=== PATIENT | female | born 1940 | race Caucasian/White ===

== ENCOUNTER 2020-04-12 10:21 | Outpatient (CLI) | payer MEDICARE, SELFPAY ==
[2020-04-12 11:00] LABS: Basophils Absolute Auto 0.1 K/mm3 (0.0-0.1); Basophils Percent Auto 0.8 % (0.2-1.2); Eosinophils Absolute Auto 0.2 K/mm3 (0-0.3); Eosinophils Percent Auto 2.4 % (0-4.4); Hematocrit 31.3 % (37.0-47.0); Hemoglobin 9.1 g/dL (12.0-15.0); Immature Granulocyte Absolute 0.05 K/mm3 (0.00-0.031); Immature Granulocyte Percent A 0.7 % (0-0.5); Lymphocytes Absolute Auto 2.02 K/mm3 (0.9-3.2); Lymphocytes Percent Auto 26.8 % (18.3-44.2); Mean Corpuscular HGB Conc 29.1 g/dl (32-36); Mean Corpuscular Hemoglobin 24.3 pg (26-34); Mean Corpuscular Volume 83.5 fl (80-100); Mean Platelet Volume 9.8 fl (7.4-10.4); Monocytes Absolute Auto 0.7 K/mm3 (0.1-0.6); Monocytes Percent Auto 9.5 % (2.6-8.5); Neutrophils Absolute Auto 4.5 K/mm3 (1.3-6.7); Neutrophils Percent Auto 59.8 % (45.5-73.1); Platelet Count Result 359 k/mm3 (150-375); Red Blood Count 3.75 M/mm3 (4.2-5.4); Red Cell Distribution Width 17.2 % (11.5-14.5); White Blood Count 7.6 K/mm3 (4.5-10.0)
[2020-04-12 11:20] LABS: Alanine Aminotransferase 11 U/L (4-35); Albumin Level 3.9 g/dL (3.5-5.1); Alkaline Phosphatase 62 U/L (38-126); Anion Gap 9 mmol/L (8-16); Aspartate Amino Transferase 23 U/L (14-36); Bilirubin,Total 0.5 mg/dL (0.2-1.3); Blood Urea Nitrogen 22 mg/dL (7-17); Calcium 7.6 mg/dL (8.4-10.2); Carbon Dioxide 21 mmol/L (22-30); Chloride 106 mmol/L (98-107); Estimated Glomerular Filt Rate 36; Glucose 95 mg/dL (65-105); Potassium 4.9 mmol/L (3.4-5.0); Sodium 136 mmol/L (137-145)
[2020-04-12 11:26] LABS: Platelet Estimate Adequate (Adequate)
[2020-04-12 11:27] LABS: Acanthocytes 1+ (NORMAL); Hypochromasia 1+ (NORMAL); Ovalocytes 2+ (NORMAL); Poikilocytosis 2+ (NORMAL)
[2020-04-12 11:29] LABS: Hemoglobin A1C 6.9 % (<5.7)
[2020-04-12 11:48] LABS: Vitamin D 25 Hydroxy 33.6 ng/mL
== END 2020-04-12 10:22 | disposition home or self-care (01) ==
PROVIDERS: PCP Internal Medicine; Visit Provider Internal Medicine
DX: E11.9 Type 2 diabetes mellitus without complications (principal); D64.9 Anemia, unspecified; E55.9 Vitamin D deficiency, unspecified
CPT/HCPCS: 36415; 80053; 82306; 83036; 85025

== ENCOUNTER 2021-01-22 12:02 | Observation (INO) | payer MEDICARE, SELFPAY ==
[2021-01-22] VITALS (22 sets, daily range): BP systolic 103–148; BP diastolic 53–85; PULSE 61–74; RESP 11–62; TEMP 36.1–36.7; O2SAT 93–98
--- NOTE | ~2021-01-22 | CT_ITS ---
EXAMINATION: CT abdomen pelvis wo con DATE: 01/22/2021 14:54 INDICATION: Weakness post fall. Assess for retroperitoneal hematoma. TECHNIQUE: Computed tomography (CT) of the abdomen and pelvis was performed without intravenous contr ast. Automated exposure control and iterative reconstruction technique were employed. The dose-length product was 547.16 mGy-cm. COMPARISON: None FINDINGS: Calcified nodules in the left lower lobe and calcified left hilar and mediastinal lymph nodes consist ent with old granulomatous disease. Large sliding-type hiatal hernia with compressive atelectasis in the adjacent medial left lower lobe. Wall versus rugal fold thickening in the stomach. Elevation of t he right hemidiaphragm. 2.0 cm fluid attenuation cyst in the left hepatic lobe. Pneumobilia in the no ndependent liver and in the dilated common bile duct which measures up to 1.3 cm in maximal diameter which may be related to prior cholecystectomy and sphincterotomy with surgical clips at the gallbladd er fossa. Spleen and bilateral adrenal glands are normal. Fatty atrophy of the body and tail of the p ancreas. 2.6 cm cystic lesion in the region of the head of the pancreas. There are several gas and fl uid-filled diverticula along the third and fourth portion of the duodenum, the largest measuring up t o 3.1 cm. The level of the ligament of Treitz his lower than the gastric pylorus suggesting a develop mental bowel malrotation although there is no evident volvulus and the colon follows a normal course. There are few scattered colonic diverticula without adjacent inflammatory change to suggest divertic ulitis. Asymmetric wall thickening at the rectoanal verge. No bowel obstruction. Normal appendix. 12 mm relatively dense lesion at the upper pole of the right kidney statistically most likely to represe nt a proteinaceous/hemorrhagic cyst. 8 mm macroscopic fat attenuation angiomyolipoma at the lower nithya e of the left kidney. No urolithiasis or hydronephrosis. Bladder is normal. The uterus is not identif ied and has likely been surgically resected. Bilateral adnexa are unremarkable. No free intraperitone al gas or fluid. No retroperitoneal hematoma. No pathologically enlarged abdominal or pelvic lymphade nopathy. Multiple phleboliths in the pelvis. Mild lumbar levocurvature. Severe disc height loss with degenerative endplate changes at L1-L2. Otherwise moderate lumbar spondylosis. IMPRESSION: 1. No fracture or acute intra-abdominal/pelvic process. 2. Large sliding-type hiatal hernia with wall thickening versus rugal fold thickening in the stomach. Differential would include infectious gastritis, hypertrophic gastritis, malignancy or inflammatory bowel disease. Consider endoscopy for further evaluation. 3. Pneumobilia and dilation the common bile duct to 13 mm which is likely related to prior cholecyste ctomy and sphincterotomy. Correlate with liver function tests. 4. Indeterminate 12 mm relatively dense lesion at the upper pole of the right kidney most likely to r epresent but not clearly diagnostic of proteinaceous/hemorrhagic cyst. Consider follow-up pre and pos tcontrast MRI or CT for more definitive determination. 5. Fatty atrophy of the body and tail the pancreas with 2.6 cm cystic lesion in the region of the hea d of the pancreas. The differential diagnosis includes pseudocyst, intraductal papillary mucinous tyra plasm (IPMN), mucinous cystic neoplasm (MCN), and the less common serous cystadenoma and neuroendocri ne tumor. Correlate for history of pancreatitis. This could be evaluated with MRI at the same time as the renal lesion. 6. Asymmetric wall thickening at the rectoanal junction. Differential would include malignancy, proct itis and hemorrhoids. Correlate with digital rectal exam and proctoscopy/sigmoidoscopy as clinically indicated. Reviewed, dictated and finalized at loca
--- NOTE | ~2021-01-22 | CT_ITS ---
EXAMINATION: CT brain wo con DATE: 01/22/2021 14:00 INDICATION: Generalized weakness post fall TECHNIQUE: Computed tomography (CT) of the head was performed without intravenous contrast. Sagittal and coronal reconstructions were performed. The mA was adjusted according to patient size. Iterative reconstruction technique was employed. The dose-length product was 605.33 mGy-cm. COMPARISON: None FINDINGS: No fracture. No acute intracranial hemorrhage, acute infarction or abnormal extra axial fluid collect ion. There is mild scattered white matter hypoattenuation consistent with chronic small vessel ischem ic disease. Symmetric prominence of the sulci and ventricles consistent with moderate age-appropriate diffuse cerebral volume loss. No mass/mass effect. Changes of bilateral intraocular lens replacement . The orbits, paranasal sinuses and mastoid air cells are normal. Intracranial calcified cerebral ath erosclerosis is noted. IMPRESSION: 1. No fracture or acute intracranial process. 2. Age-related changes including moderate diffuse volume loss and mild scattered white matter hypoatt enuation consistent with chronic small vessel ischemic disease. Reviewed, dictated and finalized at location A. IMPRESSION: 1. No fracture or acute intracranial process. 2. Age-related changes including moderate diffuse volume loss and mild scattere d white matter hypoattenuation consistent with chronic small vessel ischemic di sease.
--- NOTE | ~2021-01-22 | XR_ITS ---
EXAMINATION: XR chest 2V DATE: 01/22/2021 13:02 INDICATION: Weakness. Falls. TECHNIQUE: Frontal and lateral views of the chest were obtained. COMPARISON: None. FINDINGS: Calcified pulmonary nodules and calcified hilar and mediastinal lymph nodes are consistent with old adenomatous disease. There is marked elevation of right hemidiaphragm. There is mild atelect asis at the lung bases. No pleural effusion or pneumothorax. The heart size is normal. There is a lar ge hiatal hernia. Surgical clips in the right upper quadrant are likely from cholecystectomy. IMPRESSION: 1. Large hiatal hernia. 2. Marked elevation of right hemidiaphragm. 3. Mild atelectasis at the lung bases. Reviewed, dictated and finalized at location B.
--- NOTE | ~2021-01-22 | CT_ITS ---
EXAMINATION: CT cervical spine wo con DATE: 01/22/2021 14:00 INDICATION: Weakness post fall TECHNIQUE: Computed tomography (CT) of the cervical spine was performed without intravenous contrast. Automated exposure control and iterative reconstruction technique were employed. The dose-length pro duct was 364.89 mGy-cm. COMPARISON: None FINDINGS: Moderate atlantoaxial osteoarthritis. 1-2 mm anterolisthesis C4 on C5. Vertebral body heights are nor mal. No acute fracture. Moderate disc height loss at C5-C6 and severe disc height loss at C6-C7. Athe rosclerotic calcifications at the bilateral carotid bulbs which appears potentially hemodynamically s ignificant on the right. Visualized airway and apices of lungs are clear. The following disc levels a re specifically discussed: C2-C3: There is mild bilateral uncovertebral joint osteoarthritis. Fusion across the bilateral facet joints. There is no neural foraminal stenosis. There is no central canal stenosis. C3-C4: There is mild right and moderate left uncovertebral joint osteoarthritis. There is severe bila teral facet joint osteoarthritis. There is mild left neural foraminal stenosis. There is no central c anal stenosis. C4-C5: Disc is mildly bulging. There is mild bilateral uncovertebral joint osteoarthritis. There is m oderate right and severe left facet joint osteoarthritis. There is mild left neural foraminal stenosi s. There is mild central canal stenosis. C5-C6: Small posterior disc osteophyte complex with moderate right and severe left uncovertebral oste oarthritis. There is moderate bilateral facet joint osteoarthritis. There is mild left neural foramin al stenosis. There is mild central canal stenosis. C6-C7: Small posterior disc osteophyte complex with moderate right and severe left uncovertebral oste oarthritis. There is mild right and moderate left uncovertebral joint osteoarthritis. There is mild l eft facet joint osteoarthritis. There is mild neural foraminal stenosis. There is no central canal st enosis. C7-T1: The disc does not extend beyond the endplate margin. There is no uncovertebral joint osteoarth ritis. There is mild right and severe left facet joint osteoarthritis. There is minimal left neural f oraminal stenosis. There is no central canal stenosis. IMPRESSION: 1. Moderate to severe cervical spondylosis. No acute osseous abnormality. 2. Atherosclerotic calcifications at the bilateral carotid bulbs, potentially hemodynamically signifi cant on the right. Reviewed, dictated and finalized at location A. IMPRESSION: 1. Moderate to severe cervical spondylosis. No acute osseous abnormality. 2. Atherosclerotic calcifications at the bilateral carotid bulbs, potentially h emodynamically significant on the right.
--- NOTE | 2021-01-22 12:26 | ECG_ITS ---
Measurements Intervals [place] Rate: 63 P: -18 VA: 174 QRS: -32 QRSD: 87 T: -2 QT: 381 QTc: 392 Interpretive Statements SINUS RHYTHM LEFT AXIS DEVIATION INCOMPLETE RIGHT BUNDLE BRANCH BLOCK DELAYED PRECORDIAL R/S TRANSITION BORDERLINE ST-T WAVE ABNORMALITY- ANT/INF LEADS BORDERLINE ECG Electronically Signed On 01-22-2021 12:46:19 CDT by Tyrel Cain D.O.
--- NOTE | 2021-01-22 13:25 | ED.WEAKNESS ---
HPI - Weakness General Chief complaint: Weakness Stated complaint: Fall/Syncope/HI/Lethargy Time Seen by Provider: 01/22/21 12:53 Source: patient, family, RN notes reviewed and old records reviewed Mode of arrival: ambulatory Limitations: no limitations History of Present Illness HPI Narrative: This is an 80 year old female who presents with family for concern of weakness. Patient states she has felt weak over the past 2 days. She states today she was getting up to get ready when she lost her balance and she fell. She is unsure if she hit her head but she reports neck pain since her fall. Her son is at bedside and he states his sister reported patient was lethargic after the fall. Patient denies headache, chest pain, palpitations, nausea, vomiting, abdominal pain, focal weakness, numbness or tingling. She does report poor appetite that has been present for a while. Her 1 month ago and it seems to be worse since. She takes Xarelto 20 mg daily for left leg DVT diagnosed in October. Patient was diagnosed with UTI last week and she is currently taking Macrobid. MD Complaint: generalized weakness Related Data Home Medications Medication Instructions Recorded Confirmed amlodipine 5 mg PO HS 01/22/21 01/22/21 atorvastatin 40 mg PO HS 01/22/21 01/22/21 calcitriol 0.25 mcg PO HS 01/22/21 01/22/21 ergocalciferol (vitamin D2) 50,000 unit PO WEEKLY 01/22/21 01/22/21 furosemide 20 mg PO DAILY 01/22/21 01/22/21 glipizide 10 mg PO BID 01/22/21 01/22/21 lisinopril 40 mg PO DAILY 01/22/21 01/22/21 metoprolol succinate 100 mg PO DAILY 01/22/21 01/22/21 nitrofurantoin monohyd/m-cryst 100 mg PO Q12H 01/22/21 01/22/21 omeprazole 20 mg PO DAILY 01/22/21 01/22/21 rivaroxaban [Xarelto] 20 mg PO DAILY 01/22/21 01/22/21 semaglutide [Rybelsus] 3 mg PO DAILY 01/22/21 01/22/21 Allergies Allergy/AdvReac Type Severity Reaction Status Date / Time Sulfa (Sulfonamide Allergy Unknown PATIENT Verified 01/22/21 18:43 Antibiotics) DOESN'T REMEMBER Review of Systems Review of Systems: All systems reviewed & are unremarkable except as noted in HPI and below PMFSH Past Medical History Medical History (Updated 01/22/21 @ 23:35 by Janeth rBody MD) Acute UTI DVT (deep venous thrombosis) Hypertension Social History Social History Smoking packs per day: 1 Smoking cigarettes per day: 20.0 Years smoked: 20 Smoking pack-years: 20.00 Smoking status: Former smoker Alcohol intake: never Substance use: never Gender identity (if verbalized by the patient): Female Spiritual care concerns: No Exam Const: General: no acute distress and alert Orientation/consciousness: patient oriented x3 HENMT: Head: normocephalic and atraumatic Face and sinus: face symmetric Mouth: Yes Normal oral and palatal mucosa present, Yes lip normal and Yes oropharynx normal Throat: posterior oropharynx normal and tonsils normal Eyes: Pupils: Equal, round and reactive pupils present EOM: EOMs intact bilaterally Chest: Chest palpation & inspection: normal inspection of the chest Resp: Effort & Inspection: normal respiratory effort and no retractions Auscultation: clear to auscultation bilaterally Cardio: Rate: regular rate Rhythm: regular rhythm Heart sounds: no murmurs GI: GI Palp: Yes Soft to palpation, No Tenderness to palpation present (GI) and No Guarding due to palpation present (GI) Auscultation: normal bowel sounds Other: guaic negative Skin: General skin exam: normal color Rashes: no rashes Neuro: General: patient oriented x3, moves all extremities and CN's II-XI intact bilaterally Extrem: General: normal to inspection Psych: Mental Status: mental status grossly normal Affect: normal affect Course Reevaluation(s) Reevaluation #1: I Discussed case with Kaitlin mariee that patient found to have hemoglobin 5.9. Patient denies any bleeding and she is guaic negative. She is agreeable to accept patient
[2021-01-22 13:39] LABS: Basophils Percent Auto 0.3 % (0.2-1.2); Eosinophils Absolute Auto 0.1 K/mm3 (0-0.3); Eosinophils Percent Auto 0.9 % (0-4.4); Hematocrit 21.8 % (37.0-47.0); Immature Granulocyte Absolute 0.07 K/mm3 (0.00-0.031); Immature Granulocyte Percent A 0.5 % (0-0.5); Lymphocytes Absolute Auto 1.24 K/mm3 (0.9-3.2); Lymphocytes Percent Auto 9.6 % (18.3-44.2); Mean Corpuscular HGB Conc 27.1 g/dl (32-36); Mean Corpuscular Hemoglobin 18.8 pg (26-34); Mean Corpuscular Volume 69.4 fl (80-100); Mean Platelet Volume 10.2 fl (7.4-10.4); Monocytes Absolute Auto 1.1 K/mm3 (0.1-0.6); Monocytes Percent Auto 8.4 % (2.6-8.5); Neutrophils Absolute Auto 10.3 K/mm3 (1.3-6.7); Neutrophils Percent Auto 80.3 % (45.5-73.1); Nucleated Red Blood Cells Perc 0.2 % (0.0-0.2); Platelet Count Result 265 k/mm3 (150-375); Red Blood Count 3.14 M/mm3 (4.2-5.4); Red Cell Distribution Width 18.4 % (11.5-14.5); White Blood Count 12.9 K/mm3 (4.5-10.0)
[2021-01-22 13:48] LABS: Alanine Aminotransferase 10 U/L (4-35); Albumin Level 4.1 g/dL (3.5-5.1); Alkaline Phosphatase 62 U/L (38-126); Anion Gap 11 mmol/L (8-16); Aspartate Amino Transferase 19 U/L (14-36); Bilirubin,Total 0.4 mg/dL (0.2-1.3); Blood Urea Nitrogen 30 mg/dL (7-17); Calcium 8.9 mg/dL (8.4-10.2); Carbon Dioxide 24 mmol/L (22-30); Chloride 97 mmol/L (98-107); Estimated CRCL calculation 23 ml/min; Estimated Glomerular Filt Rate 33; Glucose 194 mg/dL (65-105); Hemoglobin 5.9 g/dL (12.0-15.0); Potassium 4.1 mmol/L (3.4-5.0); Sodium 132 mmol/L (137-145)
[2021-01-22 13:53] LABS: INR 4.2; Partial Thromboplastin Time 45.3 SECONDS (22.3-36.8); Prothrombin Time 40.8 Seconds (11.1-14.7)
[2021-01-22 13:57] LABS: Ovalocytes 1+ (NORMAL); Platelet Estimate Adequate (Adequate)
[2021-01-22 14:02] LABS: Add Urine Microscopic? YES; Appearance Urine Clear (Clear); Bacteria Urine 1+ /hpf; Bilirubin Urine Negative (Negative); Blood Urine Negative (Negative); Color Urine Yellow (Yellow); Glucose Urine UA Negative (Negative); Ketones Urine Negative (Negative); Leukocyte Esterase Ur Trace LEU/UL (Negative); Mucus Urine Rare /lpf; Nitrate Urine Negative (Negative); Protein Urine Negative (Negative); RBC Urine 0-2 /hpf (0-2); Specific Grav Ur 1.008 (1.001-1.035); Squamous Epithelial Cell Urine Many /hpf (Few); Transitional Epi Cells Urine Rare /hpf (None Seen); Urobilinogen Urine Negative mg/dL (<2.0)
[2021-01-22] MEDS: SODIUM CHLORIDE 0.9% IV 500 ML 999 ML IV CONT (14:30)
[2021-01-22] MEDS: SODIUM CHLORIDE 0.9% IV 250 ML 30 ML IV CONT (17:19)
--- NOTE | 2021-01-22 18:42 | ADMGEN ---
This patient, Sandee Martinez, was admitted to Medical Room 244-. Patient/family oriented to hospital policies and general routines including ID bracelet, bed and alarms, visiting hours, pain management, procedures, bathroom and other care routines, personal items, smoking policy, room service/diet, and visiting hours. Information on how to activate the Rapid Response Team has been discussed. Patient/Family are encouraged to report perceived risks to care and to ask questions if they do not understand what they are told or what they should do.
[2021-01-22 18:47] LABS: Glucose Point of Care 134 mg/dl (65-105)
[2021-01-22] MEDS: SODIUM CHLORIDE 0.9% IV 250 ML 30 ML (19:53)
[2021-01-22 21:47] LABS: Glucose Point of Care 235 mg/dl (65-105)
--- NOTE | 2021-01-22 22:29 | PM.IMHP ---
H&P: HPI History of Present Illness Date/Time: 01/22/21 22:29 Chief Complaint: Weakness and fall. Narrative: This is an 80-year-old female with past medical history significant for left lower extremity DVT started on Xarelto in October, Hypertension, type 2 diabetes mellitus, gastroesophageal reflux disease. Patient presented to the emergency room after she fell dizzy and she fell onto the ground patient states that she has been feeling very weak has had poor appetite allways feels cold but no fevers no chills no rigors state that has had no nausea no vomiting no hematemesis no hematochezia no melena no chest pain no palpitations no shortness of breath no cough no sputum production no leg swelling no PND no orthopnea. Preliminary workup was significant for hemoglobin of 5.5.. CT of head CT of abdomen and pelvis and chest x-ray were significant for nonspecific findings as well as numerous not necessarily related to patient's presentation. Review of Systems Review of Systems: Narrative: Patient presented to the emergency room after she was feeling very dizzy tired and felt cannot tell if she had loss of consciousness preliminary workup was significant for hemoglobin of 5.5 Constitutional: Constitutional: Denies chills, Reports fatigue, Denies fever(s), Reports poor appetite and Reports weakness Eyes: Eyes: Denies change in vision ENT: Denies dysphagia, Denies nasal congestion, Denies nasal discharge and Denies nasal obstruction Cardiovascular: Cardiovascular: Denies edema, Denies irregular heart rhythm, Denies leg edema, Reports lightheadedness, Denies palpitations and Reports dyspnea Comments: Left lower leg DVT Respiratory: Respiratory: Denies change in phlegm color, Denies chest congestion, Denies cough, Denies hemoptysis and Denies wheezing Gastrointestinal: Gastrointestinal: Denies melena, Denies hematochezia, Denies change in bowel habits, Denies dyspepsia, Denies heartburn, Denies diarrhea, Denies odynophagia, Denies vomiting and Denies hematemesis Genitourinary: Genitourinary: Denies dysuria Musculoskeletal: Musculoskeletal: Denies arthralgias, Denies joint swelling and Reports muscle weakness Integumentary/Breasts: Skin/Breast: Denies rash Neurologic: Reports system reviewed and no additional complaints, except as documented, Reports dizziness, Denies focal weakness and Denies Sensory deficit (Neuro) Psychiatric: Psychiatric: Reports no additional psychiatric complaints Endocrine: Endocrine: Reports no additional endocrine complaints Hematologic/Lymphatic: Comments: Left lower extremity DVT in October Allergic/Immunologic: Allergic/Immunologic: Reports no additional allergic/immunologic complaints FORMERLY [facility] Past Medical History Medical History (Updated 01/22/21 @ 22:51 by Cassandra Koehler MD) Acute UTI DVT (deep venous thrombosis) Hypertension Social History Social History Smoking packs per day: 1 Smoking cigarettes per day: 20.0 Years smoked: 20 Smoking pack-years: 20.00 Smoking status: Former smoker Alcohol intake: never Substance use: never Gender identity (if verbalized by the patient): Female Spiritual care concerns: No Meds Home Medications and Allergies Home Medications Medication Instructions Recorded Confirmed Type amlodipine 5 mg PO HS 01/22/21 01/22/21 History atorvastatin 40 mg PO HS 01/22/21 01/22/21 History calcitriol 0.25 mcg PO HS 01/22/21 01/22/21 History ergocalciferol (vitamin D2) 50,000 unit PO WEEKLY 01/22/21 01/22/21 History furosemide 20 mg PO DAILY 01/22/21 01/22/21 History glipizide 10 mg PO BID 01/22/21 01/22/21 History lisinopril 40 mg PO DAILY 01/22/21 01/22/21 History metoprolol succinate 100 mg PO DAILY 01/22/21 01/22/21 History nitrofurantoin monohyd/m-cryst 100 mg PO Q12H 01/22/21 01/22/21 History omeprazole 20 mg PO DAILY 01/22/21 01/22/21 History rivaroxaban [Xarelto] 20 mg PO DAILY 01/22/21 01/22/21 History semaglutide [Rybelsus] 3 mg PO DAILY 01/22/21 0
[2021-01-22] MEDS: NITROFURANTOIN MONOHYD MACROCR 100 MG CAP PO (23:21)
[2021-01-22] MEDS: amLODIPine BESYLATE 5 MG TABLET PO (23:21)
[2021-01-22] MEDS: calcitrioL 0.25 MCG CAPSULE PO (23:21)
[2021-01-23] VITALS (7 sets, daily range): BP systolic 123–152; BP diastolic 64–67; PULSE 58–62; RESP 16–20; TEMP 36.1–36.7; O2SAT 93–96
[2021-01-23 05:37] LABS: Basophils Absolute Auto 0.1 K/mm3 (0.0-0.1); Basophils Percent Auto 0.7 % (0.2-1.2); Eosinophils Absolute Auto 0.1 K/mm3 (0-0.3); Eosinophils Percent Auto 1.6 % (0-4.4); Hematocrit 32.4 % (37.0-47.0); Hemoglobin 9.5 g/dL (12.0-15.0); Immature Granulocyte Absolute 0.08 K/mm3 (0.00-0.031); Lymphocytes Absolute Auto 1.41 K/mm3 (0.9-3.2); Lymphocytes Percent Auto 17.2 % (18.3-44.2); Mean Corpuscular HGB Conc 29.3 g/dl (32-36); Mean Corpuscular Hemoglobin 21.9 pg (26-34); Mean Corpuscular Volume 74.7 fl (80-100); Mean Platelet Volume 10.8 fl (7.4-10.4); Monocytes Absolute Auto 0.9 K/mm3 (0.1-0.6); Monocytes Percent Auto 10.7 % (2.6-8.5); Neutrophils Absolute Auto 5.6 K/mm3 (1.3-6.7); Neutrophils Percent Auto 68.8 % (45.5-73.1); Nucleated Red Blood Cells Perc 0.2 % (0.0-0.2); Platelet Count Result 244 k/mm3 (150-375); Red Blood Count 4.34 M/mm3 (4.2-5.4); Red Cell Distribution Width 21.3 % (11.5-14.5); White Blood Count 8.2 K/mm3 (4.5-10.0)
[2021-01-23 05:45] LABS: Alanine Aminotransferase 9 U/L (4-35); Albumin Level 4.1 g/dL (3.5-5.1); Alkaline Phosphatase 64 U/L (38-126); Anion Gap 12 mmol/L (8-16); Aspartate Amino Transferase 18 U/L (14-36); Bilirubin,Total 1.3 mg/dL (0.2-1.3); Blood Urea Nitrogen 28 mg/dL (7-17); Calcium 8.8 mg/dL (8.4-10.2); Carbon Dioxide 23 mmol/L (22-30); Chloride 102 mmol/L (98-107); Estimated CRCL calculation 23 ml/min; Estimated Glomerular Filt Rate 33; Glucose 152 mg/dL (65-105); Potassium 3.7 mmol/L (3.4-5.0); Sodium 137 mmol/L (137-145)
--- NOTE | 2021-01-23 07:18 | WPDGICN ---
Assessment and Plan Assessment and plan (1) Acute on chronic anemia: Code(s): D64.9 - Anemia, unspecified Status: Acute Assessment and Plan: worsening and symptomatic anemia in setting of blood thinner (now on hold) will do EGD tomorrow (they are agreeable) given abnormal stomach by CT scan- need to assess if ulcer, gastritis, malignancy, etc (2) Abnormal CT scan, stomach: Code(s): R93.3 - Abnormal findings on diagnostic imaging of other parts of digestive tract Status: Acute Assessment and Plan: egd tomorrow also pancreatic cyst and renal lesion- will need MRI abdomen as outpatient I wonder if she had also sphincterotomy (pneumobilia), now with normal liver enzymes. Daughter remembers that she had large gallstone and cholecystectomy 2.5 years ago at [facility] (will get records)- also she told me that had colonoscopy at that time. (3) Acute kidney injury: Code(s): N17.9 - Acute kidney failure, unspecified Status: Acute Assessment and Plan: mild elevation of creatinine monitor (4) Dizziness: Code(s): R42 - Dizziness and giddiness Status: Acute Assessment and Plan: resolved, secondary to symptomatic anemia (5) Fall: Code(s): W19.XXXA - Unspecified fall, initial encounter Status: Acute (6) DVT (deep venous thrombosis): Code(s): I82.409 - Acute embolism and thrombosis of unspecified deep veins of unspecified lower extremity Status: Acute GI Consult Note Consult date/time: 01/23/21 07:18 Reason for consult: symptomatic anemia HPI: Sandee Martinez is a 80 year old female with history of left lower extremity DVT started on Xarelto in October (outpatient setting), Hypertension, type 2 diabetes mellitus, GERD on ppi. Daughter is here and remembers that 2.5 years ago was admitted to [facility] after cholecystectomy with large stone , also an infection but anemia for which had EGD and colonoscopy- no major findings . Daughter noted that last 2 weeks progressively more fatigue but yesterday quite more symptomatic, feeling dizzy and lethargic, she fell down. Hemoglobin was 5.5 and received blood transfusion. CT of abdomen and pelvis reviewed, no fracture or acute intra-abdominal/pelvic process, large sliding-type hiatal hernia with wall thickening versus rugal fold thickening in the stomach, pneumobilia and dilation the common bile duct to 13 mm which is likely related to prior cholecystectomy and sphincterotomy, indeterminate 12 mm relatively dense lesion at the upper pole of the right kidney most likely to represent but not clearly diagnostic of proteinaceous/hemorrhagic cyst, fatty atrophy of the body and tail the pancreas with 2.6 cm cystic lesion in the region of the head of the pancreas. Had normal liver enzymes. She is doing much better today after blood transfusion. Patient denies any overt GIB, no melena and FOBT was negative. Review of Systems Constitutional: Constitutional: Reports fatigue and Reports lethargy Eyes: Eyes: Denies blurry vision ENT: Reports Normal hearing present Cardiovascular: Cardiovascular: Denies chest pain Respiratory: Respiratory: Denies cough Gastrointestinal: Gastrointestinal: Denies melena and Denies nausea Genitourinary: Genitourinary: Denies hematuria Musculoskeletal: Musculoskeletal: Reports no additional musculoskeletal complaints Integumentary/Breasts: Skin/Breast: Reports system reviewed and no additional complaints, except as docu Neurologic: Denies headache(s) Psychiatric: Psychiatric: Denies behavioral changes [facility] Past Medical History Medical History (Updated 01/23/21 @ 15:28 by Dami Estrella MD) Abnormal CT scan, stomach Chronic kidney disease DVT (deep venous thrombosis) October 2020 - Left lower extremity Hyperlipidemia Hypertension T2DM (type 2 diabetes mellitus) Social History Social History Smoking packs per day: 1 Smoking cigarettes per day: 20.0 Years sm
[2021-01-23 08:31] LABS: Glucose Point of Care 130 mg/dl (65-105)
[2021-01-23 10:00] LABS: Glucose Point of Care 377 mg/dl (65-105)
[2021-01-23 10:00] LABS: Glucose Point of Care 403 mg/dl (65-105)
[2021-01-23] MEDS: INSULIN ASPART (*BKC) 100 UNITS/ML SUB-Q ×2 (10:02→12:04)
[2021-01-23] MEDS: METOPROLOL SUCCINATE EXT REL 100 MG TABCR PO (10:03)
[2021-01-23] MEDS: NITROFURANTOIN MONOHYD MACROCR 100 MG CAP PO ×2 (10:03→21:48)
[2021-01-23] MEDS: PANTOPRAZOLE 40 MG TABLET PO (10:03)
--- NOTE | 2021-01-23 10:42 | PM.IMPN ---
Progress Note: A&P Assessment and Plan (1) Acute on chronic anemia: Code(s): D64.9 - Anemia, unspecified Status: Acute Assessment and Plan: Baseline hemoglobin appears to be around 9.0. At presentation, hemoglobin was 5.5. She denies any bleeding. Hemoccult negative in ED. She received 2 units pRBC on 01/22. Hemoglobin has stabilized following transfusion. Vital signs are stable. No evidence of active bleeding. Monitor H&H q6h. Transfuse as needed with hemoglobin threshold <7.0 Xarelto is on hold Continue IV Protonix Concern for GI bleed. Appreciate GI consultation. Continue clear liquid diet at this time. Check fecal occult blood jared, iron panel, B12, and folate (2) Fall: Code(s): W19.XXXA - Unspecified fall, initial encounter Status: Acute Assessment and Plan: Mechanical fall on 01/22. She had been feeling weak for several days. Unclear if she hit her head. She endorsed neck pain. Head CT and cervical spine CT negative for acute findings. Fall precautions initiated Appreciate PT/OT eval (3) T2DM (type 2 diabetes mellitus): Code(s): E11.9 - Type 2 diabetes mellitus without complications Status: Acute Assessment and Plan: Last A1c was 6.9 in March 2020. Blood sugars reviewed and have been fluctuant. She reports poor control for a while now feels that her home glucometer is not calibrated properly Accu-Cheks, sliding scale insulin, hypoglycemic protocol Hold glipizide and semaglutide Check updated A1c (4) DVT (deep venous thrombosis): Code(s): I82.409 - Acute embolism and thrombosis of unspecified deep veins of unspecified lower extremity Status: Inactive Assessment and Plan: Onset October 2020. On chronic anticoagulation with Xarelto anticipated through May 2021 Xarelto on hold due to acute anemia (5) Hypertension: Code(s): I10 - Essential (primary) hypertension Status: Inactive Assessment and Plan: Blood pressure reviewed and is stable. Last BP 123/67. Continue amlodipine, metoprolol, and lisinopril Monitor BP trend (6) Chronic kidney disease: Code(s): N18.9 - Chronic kidney disease, unspecified Status: Inactive Assessment and Plan: Renal function appears consistent with baseline (7) Abnormal finding on CT scan: Code(s): R93.89 - Abnormal findings on diagnostic imaging of other specified body structures Status: Acute Assessment and Plan: CT abdomen/pelvis demonstrated indeterminate lesion of right kidney. Patient and family aware. This has been worked up at [place] and patient/family do not wish for further intervention at this time. Prefer to pursue outpatient workup Also noted cystic lesion of head of the pancreas with atrophy of body and tail. Family not previously aware of this. Will await further GI recommendations and consider follow-up MRI, although do not want to give her contrast given her chronic kidney disease. Cervical spine CT showed atherosclerotic calcifications at the bilateral carotid bulbs, potentially hemodynamically significant on the right. Again, patient and family would prefer to pursue outpatient workup. She is hemodynamically stable. (8) Acute UTI: Code(s): N39.0 - Urinary tract infection, site not specified Status: Inactive Assessment and Plan: Diagnosed with acute UTI at [facility] on 01/17. She was started on Macrobid. She is currently asymptomatic. Continue home macrobid. Will complete course of antibiotics today. Urine culture collected at presentation and is pending. Anticipate this to be negative given recent antibiotic use. Subjective Date/time seen: 01/23/21 10:42 Interval history: Date of service: 01/24/2020 Sandee Martinez is an 80-year-old female with a history of hypertension, DVT on chronic anticoagulation, hyperlipidemia, chronic anemia, and type 2 diabetes delfina
[2021-01-23 11:48] LABS: Glucose Point of Care 314 mg/dl (65-105)
[2021-01-23 13:34] LABS: Hematocrit 32.9 % (37.0-47.0); Hemoglobin 9.8 g/dL (12.0-15.0)
--- NOTE | 2021-01-23 17:08 | WPDANESEPP ---
Anes - Eval Pre Procedure Procedure: Operation Date: 01/24/21 12:00 Proposed Procedures p Esophagogastroduodenoscopy - Dami Estrella MD Date/Time: 01/23/21 17:08 Pre Op Diagnosis: anemia/chronic kidney disease/weakness Patient Data Age: 80 Gender: F Height: 5 ft 4 in Weight: 68 kg Last Vital Signs Temp 98.0 F 01/23/21 14:00 Pulse 62 01/23/21 14:00 Resp 16 01/23/21 14:00 BP 135/64 01/23/21 14:00 Pulse Ox 93 01/23/21 14:00 Allergies Allergy/AdvReac Type Severity Reaction Status Date / Time Sulfa (Sulfonamide Allergy Unknown PATIENT Verified 01/22/21 18:43 Antibiotics) DOESN'T REMEMBER Home Medications Medication Instructions Recorded Confirmed Type amlodipine 5 mg PO HS 01/22/21 01/22/21 History atorvastatin 40 mg PO HS 01/22/21 01/22/21 History calcitriol 0.25 mcg PO HS 01/22/21 01/22/21 History ergocalciferol (vitamin D2) 50,000 unit PO WEEKLY 01/22/21 01/22/21 History furosemide 20 mg PO DAILY 01/22/21 01/22/21 History glipizide 10 mg PO BID 01/22/21 01/22/21 History lisinopril 40 mg PO DAILY 01/22/21 01/22/21 History metoprolol succinate 100 mg PO DAILY 01/22/21 01/22/21 History nitrofurantoin monohyd/m-cryst 100 mg PO Q12H 01/22/21 01/22/21 History omeprazole 20 mg PO DAILY 01/22/21 01/22/21 History rivaroxaban [Xarelto] 20 mg PO DAILY 01/22/21 01/22/21 History semaglutide [Rybelsus] 3 mg PO DAILY 01/22/21 01/22/21 History Laboratory Tests 01/22/21 01/22/21 01/22/21 14:35 18:45 21:44 WBC RBC Hgb Hct MCV MCH MCHC RDW Plt Count MPV Immature Gran % (Auto) Neut % (Auto) Lymph % (Auto) [place] % (Auto) Eos % (Auto) Baso % (Auto) Lymph # (Auto) [place] # (Auto) Eos # (Auto) Baso # (Auto) Abs Immat Gran (auto) Absolute Neuts (auto) Absolute Nucleated RBC Nucleated RBC % Sodium Potassium Chloride Carbon Dioxide Anion Gap BUN Creatinine Estim Creat Clear Calc Estimated GFR Glucose POC Capillary Glucose 134 mg/dl H mg/dl 235 mg/dl H mg/dl (65-105) (65-105) Calcium Total Bilirubin AST ALT Alkaline Phosphatase Total Protein Albumin Blood Type O Positive Antibody Screen Negative Crossmatch See Detail 01/23/21 01/23/21 01/23/21 04:50 04:50 08:20 WBC 8.2 K/mm3 K/mm3 (4.5-10.0) RBC 4.34 M/mm3 M/mm3 (4.2-5.4) Hgb 9.5 g/dL L D g/dL (12.0-15.0) Hct 32.4 % L % (37.0-47.0) MCV 74.7 fl L D fl (80-100) MCH 21.9 pg L D pg (26-34) MCHC 29.3 g/dl L g/dl (32-36) RDW 21.3 % H % (11.5-14.5) Plt Count 244 k/mm3 k/mm3 (150-375) MPV 10.8 fl H fl (7.4-10.4) Immature Gran % (Auto) 1.0 % H % (0-0.5) Neut % (Auto) 68.8 % % (45.5-73.1) Lymph % (Auto) 17.2 % L % (18.3-44.2) [place] % (Auto) 10.7 % H % (2.6-8.5) Eos % (Auto) 1.6 % % (0-4.4) Baso % (Auto) 0.7 % % (0.2-1.2) Lymph # (Auto) 1.41 K/mm3 K/mm3 (0.9-3.2) [place] # (Auto) 0.9 K/mm3 H K/mm3 (0.1-0.6) Eos # (Auto) 0.1 K/mm3 K/mm3 (0-0.3) Baso # (Auto) 0.1 K/mm3 K/mm3 (0.0-0.1) Abs Immat Gran (auto) 0.08 K/mm3 H K/mm3 (0.00-0.031) Absolute Neuts (auto) 5.6 K/mm3 K/mm3 (1.3-6.7) Absolute Nucleated RBC 0.0 K/mm3 K/mm3 (0.0-0.012) Nucleated RBC % 0.2 % % (0.0-0.2) Sodium 137 mmol/L mmol/L (137-145) [place]
[2021-01-23 17:11] LABS: Glucose Point of Care 131 mg/dl (65-105)
[2021-01-23 20:22] LABS: Hematocrit 34.1 % (37.0-47.0); Hemoglobin 10.3 g/dL (12.0-15.0)
[2021-01-23] MEDS: amLODIPine BESYLATE 5 MG TABLET PO (21:48)
[2021-01-23] MEDS: calcitrioL 0.25 MCG CAPSULE PO (21:49)
[2021-01-23 22:29] LABS: Glucose Point of Care 150 mg/dl (65-105)
[2021-01-24] VITALS (9 sets, daily range): BP systolic 101–144; BP diastolic 62–94; PULSE 16–71; RESP 14–98; TEMP 36.1–36.3; O2SAT 58–99
[2021-01-24 05:37] LABS: Hematocrit 31.5 % (37.0-47.0); Hemoglobin 9.6 g/dL (12.0-15.0); Mean Corpuscular HGB Conc 30.5 g/dl (32-36); Mean Corpuscular Hemoglobin 22.5 pg (26-34); Mean Corpuscular Volume 73.8 fl (80-100); Mean Platelet Volume 10.5 fl (7.4-10.4); Platelet Count Result 242 k/mm3 (150-375); Red Blood Count 4.27 M/mm3 (4.2-5.4); Red Cell Distribution Width 21.1 % (11.5-14.5); White Blood Count 7.3 K/mm3 (4.5-10.0)
[2021-01-24 05:48] LABS: Anion Gap 9 mmol/L (8-16); Blood Urea Nitrogen 23 mg/dL (7-17); Calcium 9.1 mg/dL (8.4-10.2); Carbon Dioxide 25 mmol/L (22-30); Chloride 101 mmol/L (98-107); Estimated CRCL calculation 28 ml/min; Estimated Glomerular Filt Rate 43; Glucose 156 mg/dL (65-105); Potassium 3.5 mmol/L (3.4-5.0); Sodium 135 mmol/L (137-145)
[2021-01-24 05:50] LABS: Hemoglobin A1C 7.6 % (<5.7)
[2021-01-24 06:20] LABS: Iron 24 ug/dL (37-170)
[2021-01-24 06:30] LABS: Percent Iron Saturation 7 % (20-50)
[2021-01-24 06:54] LABS: Folic Acid 9.4 ng/mL (2.76->20)
--- NOTE | 2021-01-24 07:48 | PC.NURSE ---
Outpatient referral started for initial DSMT and MNT. [facility].
[2021-01-24 08:29] LABS: INR 1.1; Prothrombin Time 14.3 Seconds (11.1-14.7)
[2021-01-24] MEDS: PANTOPRAZOLE 40 MG TABLET PO (09:52)
[2021-01-24] MEDS: METOPROLOL SUCCINATE EXT REL 100 MG TABCR PO (09:52)
[2021-01-24 11:13] LABS: Glucose Point of Care 198 mg/dl (65-105)
--- NOTE | 2021-01-24 11:26 | WPDANESEPPF ---
Anes - Initial Pre Proc Eval Procedure: Operation Date: 01/24/21 12:00 Proposed Procedures p Esophagogastroduodenoscopy - Dami Estrella MD s Sigmoidoscopy - Dami Estrella MD Date/Time: 01/24/21 11:26 Surgeon: Dianelys Soria PA-C Pre Op Diagnosis: anemia/chronic kidney disease/weakness Patient Data Age: 80 Gender: F Height: 5 ft 4 in Weight: 68 kg Last Vital Signs Temp 97.3 F L 01/24/21 11:06 Pulse 57 L 01/24/21 11:06 Resp 16 01/24/21 11:06 BP 136/72 01/24/21 11:06 Pulse Ox 99 01/24/21 11:06 Allergies Allergy/AdvReac Type Severity Reaction Status Date / Time Sulfa (Sulfonamide Allergy Unknown PATIENT Verified 01/24/21 11:02 Antibiotics) DOESN'T REMEMBER Home Medications Medication Instructions Recorded Confirmed Type amlodipine 5 mg PO HS 01/22/21 01/22/21 History atorvastatin 40 mg PO HS 01/22/21 01/22/21 History calcitriol 0.25 mcg PO HS 01/22/21 01/22/21 History ergocalciferol (vitamin D2) 50,000 unit PO WEEKLY 01/22/21 01/22/21 History furosemide 20 mg PO DAILY 01/22/21 01/22/21 History glipizide 10 mg PO BID 01/22/21 01/22/21 History lisinopril 40 mg PO DAILY 01/22/21 01/22/21 History metoprolol succinate 100 mg PO DAILY 01/22/21 01/22/21 History nitrofurantoin monohyd/m-cryst 100 mg PO Q12H 01/22/21 01/22/21 History omeprazole 20 mg PO DAILY 01/22/21 01/22/21 History rivaroxaban [Xarelto] 20 mg PO DAILY 01/22/21 01/22/21 History semaglutide [Rybelsus] 3 mg PO DAILY 01/22/21 01/22/21 History Laboratory Tests 01/23/21 01/23/21 01/23/21 11:45 13:09 17:08 WBC RBC Hgb 9.8 g/dL L g/dL (12.0-15.0) Hct 32.9 % L % (37.0-47.0) MCV MCH MCHC RDW Plt Count MPV PT INR Sodium Potassium Chloride Carbon Dioxide Anion Gap BUN Creatinine Estim Creat Clear Calc Estimated GFR Glucose POC Capillary Glucose 314 mg/dl H mg/dl 131 mg/dl H mg/dl (65-105) (65-105) Hemoglobin A1c Calcium Iron TIBC % Saturation Ferritin Vitamin B12 Folate 01/23/21 01/23/21 01/24/21 20:08 21:54 04:56 WBC 7.3 K/mm3 K/mm3 (4.5-10.0) RBC 4.27 M/mm3 M/mm3 (4.2-5.4) Hgb 10.3 g/dL L g/dL 9.6 g/dL L g/dL (12.0-15.0) (12.0-15.0) Hct 34.1 % L % 31.5 % L % (37.0-47.0) (37.0-47.0) MCV 73.8 fl L fl (80-100) MCH 22.5 pg L pg (26-34) MCHC 30.5 g/dl L g/dl (32-36) RDW 21.1 % H % (11.5-14.5) Plt Count 242 k/mm3 k/mm3 (150-375) MPV 10.5 fl H fl (7.4-10.4) PT INR Sodium Potassium Chloride Carbon Dioxide Anion Gap BUN Creatinine Estim Creat Clear Calc Estimated GFR Glucose POC Capillary Glucose 150 mg/dl H mg/dl (65-105) Hemoglobin A1c Calcium Iron TIBC % Saturation Ferritin Vitamin B12 Folate 01/24/21 01/24/21 01/24/21 04:56 04:56 04:56 WBC RBC Hgb Hct MCV MCH MCHC RDW Plt Count MPV PT INR Sodium 135 mmol/L L mmol/L (137-145) Potassium 3.5 mmol/L mmol/L (3.4-5.0) Chloride 101 mmol/L mmol/L (98-107) Carbon Dioxide 25 mmol/L mmol/L (22-30) Anion Gap 9 mmol/L mmol/L (8-16) BUN 23 mg/dL H mg/dL (7-17) Creatinine 1.2
[2021-01-24] MEDS: LACTATED RINGERS 1,000 ML 150 ML IV CONT (12:47)
--- NOTE | 2021-01-24 14:21 | PM.DS ---
DS: Admitting Diagnosis Admitting Diagnosis Admitting Diagnosis: Acute anemia DS: Discharge Diagnosis Discharge Diagnosis (1) Acute on chronic anemia: Code(s): D64.9 - Anemia, unspecified Status: Acute Assessment and Plan: Baseline hemoglobin appears to be around 9.0. At presentation, hemoglobin was 5.5. She denied any bleeding. Hemoccult negative in ED. She received 2 units pRBC on 01/22. Hemoglobin stabilized following transfusion. Vital signs remained stable. No evidence of active bleeding. She underwent EGD and sigmoidoscopy on 01/24/2021, again with no evidence of bleeding. Xarelto was held and will continue to be held for 3 additional days. Repeat H&H in 1 week. Follow-up with PCP in 1 week. She was found to be iron deficient and oral iron supplementation was initiated. B12 levels also found to be low and she was started on B12 supplementation. (2) Fall: Code(s): W19.XXXA - Unspecified fall, initial encounter Status: Acute Assessment and Plan: Mechanical fall on 01/22. She had been feeling weak for several days. Unclear if she hit her head. She endorsed neck pain. Head CT and cervical spine CT negative for acute findings. Fall precautions initiated. She was evaluated by PT/OT. (3) Acute UTI: Code(s): N39.0 - Urinary tract infection, site not specified Status: Inactive Assessment and Plan: Diagnosed with UTI at PCP on 01/17 and completed 6 days of Macrobid. Urinalysis at presentation was abnormal and urine culture demonstrated >100,000 CFU E coli with resistance to Macrobid. She was transition to IV Rocephin and will continue p.o. cefdinir to complete a 7 day course of antibiotics. (4) T2DM (type 2 diabetes mellitus): Code(s): E11.9 - Type 2 diabetes mellitus without complications Status: Acute Assessment and Plan: A1c is 7.6. Blood sugars reviewed and were generally well controlled. Continue home glipizide and semaglutide (5) DVT (deep venous thrombosis): Code(s): I82.409 - Acute embolism and thrombosis of unspecified deep veins of unspecified lower extremity Status: Acute Assessment and Plan: Onset October 2020. On chronic anticoagulation with Xarelto anticipated through May 2021. Xarelto was held due to acute anemia and will be held through 01/28/2021 (6) Hypertension: Code(s): I10 - Essential (primary) hypertension Status: Inactive Assessment and Plan: Blood pressure reviewed and remained stable. Continue amlodipine, metoprolol, and lisinopril (7) Chronic kidney disease: Code(s): N18.9 - Chronic kidney disease, unspecified Status: Inactive Assessment and Plan: Renal function was consistent with baseline (8) Abnormal finding on CT scan: Code(s): R93.89 - Abnormal findings on diagnostic imaging of other specified body structures Status: Acute Assessment and Plan: CT abdomen/pelvis demonstrated indeterminate lesion of right kidney as well as cystic lesion of head of pancreas with atrophy of body and tail. Patient and family aware of these findings. She had a negative workup at [place] about 2 years ago and patient/family do not wish for further intervention at this time. Prefer to pursue outpatient workup. She would benefit from outpatient MRI at discretion of PCP Cervical spine CT showed atherosclerotic calcifications at the bilateral carotid bulbs, potentially hemodynamically significant on the right. These findings also discussed with patient and family who would prefer to pursue outpatient workup. She declined carotid Doppler. She was hemodynamically stable. DS: Summary Hospital Course Reason for hospitalization: Anemia Hospital Course: Date of admission: 01/22/2021 Date of discharge: 01/24/2021 Sandee Tyson is an 80-year-old female with a history of hypertension, DVT on chronic anticoagulation, hyperlipidemia, chronic
[2021-01-24] MEDS: CYANOCOBALAMIN INJ 1,000 MCG/ML VIAL 1000 MCG IM (14:37)
--- NOTE | 2021-01-25 07:20 | WPDANESPN ---
Anes - Prog Note Post-Op Date/Time: 01/25/21 07:20 Cardiovascular status: normal Respiratory status: normal Airway patency: baseline Mental status: baseline Post-Op hydration status: normal Vital Signs: Last Vital Signs Temp 36.2 C L 01/24/21 14:00 Pulse 56 L 01/24/21 14:00 Resp 16 01/24/21 14:00 BP 132/69 01/24/21 14:00 Pulse Ox 98 01/24/21 14:00 Pain Score (VAS): 2 I/O: Intake & Output 01/24/21 01/24/21 01/25/21 15:59 23:59 07:59 Intake Total 50 Balance 50 Laboratory Tests 01/24/21 04:56 01/24/21 04:56 01/24/21 01/24/21 08:14 11:11 PT 14.3 D INR 1.1 POC Capillary Glucose 198 H Microbiology 01/22/21 13:35 Urine Clean Catch Urine Culture - Final Escherichia Coli Post-procedural complaints: none Patient Feedback: Patient satisfied with anesthetic care.
== END 2021-01-24 15:17 | disposition home or self-care (01) ==
LOC: ANHED 13:33 → ANH2MED 22:48
PROVIDERS: Emergency Medicine; Internal Medicine Gastroenterology; Admitting Provider Internal Medicine; Emergency Provider General Practice; PCP Internal Medicine; Visit Provider Physician Assistant
PROC: 0DJ08ZZ Inspection of Upper Intestinal Tract, Via Natural or Artificial Opening Endoscopic (ICD-10-PCS; CPT 43235; principal; 2021-01-24 12:00)
PROC: 0DJD8ZZ Inspection of Lower Intestinal Tract, Via Natural or Artificial Opening Endoscopic (ICD-10-PCS; CPT 45330; 2021-01-24 12:00)
DX: D64.9 Anemia, unspecified (principal); K64.8 Other hemorrhoids; K44.9 Diaphragmatic hernia without obstruction or gangrene; K31.7 Polyp of stomach and duodenum; K57.10 Diverticulosis of small intestine without perforation or abscess without bleeding; K22.710 Barrett's esophagus with low grade dysplasia; D12.2 Benign neoplasm of ascending colon; D12.5 Benign neoplasm of sigmoid colon; N39.0 Urinary tract infection, site not specified; B96.20 Unspecified Escherichia coli [E. coli] as the cause of diseases classified elsewhere; R42 Dizziness and giddiness; W18.39XA Other fall on same level, initial encounter; I82.409 Acute embolism and thrombosis of unspecified deep veins of unspecified lower extremity; E86.0 Dehydration; N17.9 Acute kidney failure, unspecified; R93.89 Abnormal findings on diagnostic imaging of other specified body structures; R53.1 Weakness; I12.9 Hypertensive chronic kidney disease with stage 1 through stage 4 chronic kidney disease, or unspecified chronic kidney disease; N18.9 Chronic kidney disease, unspecified; E11.22 Type 2 diabetes mellitus with diabetic chronic kidney disease; K21.9 Gastro-esophageal reflux disease without esophagitis; Z87.891 Personal history of nicotine dependence; Z79.01 Long term (current) use of anticoagulants; Z79.84 Long term (current) use of oral hypoglycemic drugs
CPT/HCPCS: 43239; 45378; 36415; 36430; 70450; 71046; 72125; 74176; 80048; 80053; 81001; 82607; 82728; 82746; 82948; 83036; 83540; 83550; 85014; 85018; 85025; 85027; 85610; 85730; 86850; 86900; 86901; 86923; 87077; 87086; 87088; 87186; 88305; 93005; 96361; 96365; 96367; 96372; 97161; 99285; A9270; G0378; J0131; J0696; J1815; J2704; J3420; J7040; J7050; J7120; P9016

== ENCOUNTER 2021-02-11 15:33 | Outpatient (CLI) | payer MEDICARE, SELFPAY ==
--- NOTE | ~2021-02-11 | MR_ITS ---
EXAMINATION: MR abdomen wo/w con DATE: 02/11/2021 17:12 INDICATION: Pancreatic mass TECHNIQUE: Magnetic resonance imaging (MRI) of the abdomen was performed without and with 13 mL Multi patrick intravenous contrast. Sequences included coronal T2-weighted SS-FSE, coronal and axial FS 2D-F IESTA, axial STIR FSE, axial T2-weighted SS-FSE, axial T2-weighted FS SS-FSE, axial diffusion-weighte d SE, axial dual-echo T1-weighted FSPGR, and axial and coronal T1-weighted LAVA. Postcontrast axial T 1-weighted LAVA images were obtained in a time course. Postcontrast coronal T1-weighted LAVA images w ere obtained. COMPARISON: CT dated 01/22/2021 FINDINGS: Mild cardiomegaly. No pericardial or pleural effusion. Moderate to large paraesophageal type hiatal h ernia. Status post left mastectomy. 1.9 cm septated cyst in the left hepatic lobe. Status post cholec ystectomy with surgical clips at the gallbladder fossa. There is mild intra and extrahepatic biliary ductal dilation. The common bile duct measures 10 mm diameter. There are cerebral small filling defec ts within the common bile duct most likely representing pneumobilia as seen on prior CT although coul d not exclude gallstones. Spleen and bilateral adrenal glands are normal. There are bilateral T2 hype rintense nonenhancing renal cysts in both kidneys although several are too small to definitively daryl acterize. 11 mm T2 hypointense, T1 hyperintense nonenhancing proteinaceous/hemorrhagic cyst at the up per pole of the right kidney. Again seen is a 8 mm lesion at the lower pole of the left kidney which is hypointense on fat saturated images consistent with macroscopic fat-containing angiomyolipoma. Pro minent diffuse pancreatic atrophy. The main pancreatic duct is dilated to 8 mm. Simple appearing 2.6 cm T2 hyperintense cyst at the head of the pancreas without enhancing soft tissue component. 3.1 cm d iverticulum arising from the third portion of the duodenum. No pathologically enlarged abdominal lymp hadenopathy. Mild lumbar levocurvature. IMPRESSION: 1. 12 mm hyperdense lesion at the upper pole of the right kidney seen on prior CT demonstrates low T2 and high T1 signal without definitive enhancement which be most consistent with a proteinaceous/hemo rrhagic cyst. Assessment on the postcontrast images is however limited particularly for smaller lesio ns by motion artifact on all of the postcontrast sequences. 2. 2.6 cm simple appearing cyst without enhancing soft tissue component at the head of the pancreas. Consider 6 month follow-up pre and postcontrast MRI. 3. Large paraesophageal type hiatal 4. Subtle filling defects within the common bile duct without intrahepatic biliary ductal dilation. T hese most likely represent gas bubbles given the presence of pneumobilia on the prior CT although dif ferential would include non-obstructing gallstones. Reviewed, dictated and finalized at location A. IMPRESSION: 1. 12 mm hyperdense lesion at the upper pole of the right kidney seen on prior CT demonstrates low T2 and high T1 signal without definitive enhancement which be most consistent with a proteinaceous/hemorrhagic cyst. Assessment on the pos tcontrast images is however limited particularly for smaller lesions by motion artifact on all of the postcontrast sequences. 2. 2.6 cm simple appearing cyst without enhancing soft tissue component at the head of the pancreas. Consider 6 month follow-up pre and postcontrast MRI. 3. Large paraesophageal type hiatal 4. Subtle filling defects within the common bile duct without intrahepatic bili shannon ductal dilation. These most likely represent gas bubbles given the presence of pneumobilia on the prior CT although differential would include non-obstruc ting gallstones.
== END 2021-02-11 15:34 | disposition home or self-care (01) ==
LOC: ANHIMG 15:44
PROVIDERS: PCP Internal Medicine; Visit Provider Internal Medicine
DX: K86.89 Other specified diseases of pancreas (principal); N28.9 Disorder of kidney and ureter, unspecified; K44.9 Diaphragmatic hernia without obstruction or gangrene
CPT/HCPCS: 74183; A9577

== ENCOUNTER 2021-05-18 11:47 | Inpatient (IN) | payer MEDICARE, SELFPAY ==
[2021-05-18] VITALS (10 sets, daily range): BP systolic 64–171; BP diastolic 47–92; PULSE 66–80; RESP 14–18; TEMP 36–37.2; O2SAT 92–97; BMI 24.0
--- NOTE | ~2021-05-18 | XR_ITS ---
EXAMINATION: XR chest 2V DATE: 05/18/2021 12:47 INDICATION: Chest pain after fall TECHNIQUE: AP and lateral views of the chest are obtained. COMPARISON: 01/22/2021 FINDINGS: There is a large hiatal hernia. There is elevation right hemidiaphragm with colonic interpo sition. Bibasilar airspace opacities likely reflect passive atelectasis. No acute airspace opacities are identified. There is no pleural effusion or pneumothorax. The heart size is IMPRESSION: 1. No acute cardiopulmonary abnormality. 2. Large hiatal hernia. Reviewed, dictated and finalized at location A.
--- NOTE | ~2021-05-18 | CT_ITS ---
EXAMINATION: CT brain wo con INDICATION: Headache COMPARISON: None TECHNIQUE: Standard unenhanced head CT. The dose-length product (DLP) was 605.33 mGy-cm. The mA was a djusted according to patient size. Iterative reconstruction technique was employed. FINDINGS: There is no acute intraparenchymal hemorrhage. No evidence of mass lesion. No evidence of a cute infarction. There is mild periventricular and subcortical hypodensity probably related to small vessel ischemic disease. There is mild prominence of the sulci and ventricles related to cerebral atr ophy. Intracranial calcified cerebral atherosclerosis is noted. There are no extra-axial collections. There is no mass effect or midline shift. The orbits and soft tissues are unremarkable. The visualiz ed sinuses and mastoid air cells are well aerated. IMPRESSION: 1. No acute intracranial abnormality. 2. Age related findings. Reviewed, dictated and finalized at location A.
--- NOTE | ~2021-05-18 | CT_ITS ---
EXAMINATION: CT abdomen pelvis wo con DATE: 05/18/2021 14:16 INDICATION: Left flank pain TECHNIQUE: Computed tomography (CT) of the abdomen and pelvis was performed without intravenous contr ast. The dose-length product (DLP) was 210.28 mGy-cm. Automated exposure control and iterative recons truction technique were employed. COMPARISON: None FINDINGS: Minimal dependent atelectasis is present in the lung bases. The heart size is normal. There is elevation of the right hemidiaphragm. Calcified left hilar lymph nodes are consistent with old gr anulomatous disease. There is a large hiatal hernia. The heart size is normal. The gallbladder is italo gically absent. There is mild enlargement of the common bile duct and central intrahepatic ducts whic h is likely due to post cholecystectomy state. Chronic pneumobilia is noted. The spleen and adrenal g lands are normal. There is a stable 2.6 cm cystic lesion in the head of the pancreas. There is atroph y of the body and tail of the pancreas. There is a 1.7 cm cyst in the left hepatic lobe. There is mil d atrophy of the kidneys which contain multiple small cysts. No pathologically enlarged abdominal or pelvic lymph nodes are identified. There is no free intraperitoneal gas or evidence of bowel obstruct ion. The appendix is normal. There is a fat-containing umbilical hernia. Severe lumbar spondylosis is noted. There is a T11 compression fracture with 50% loss of intervertebral body height which is new since the comparison examinations. IMPRESSION: 1. T11 compression fracture, age indeterminate but new since the prior examination. 2. Stable cystic lesion in the head of the pancreas with differential and follow-up recommendations a s previously described. 3. Large hiatal hernia. Reviewed, dictated and finalized at location A. IMPRESSION: 1. T11 compression fracture, age indeterminate but new since the prior examinat ion. 2. Stable cystic lesion in the head of the pancreas with differential and follo w-up recommendations as previously described. 3. Large hiatal hernia.
--- NOTE | 2021-05-18 12:12 | ECG_ITS ---
Measurements Intervals [place] Rate: 69 P: -9 CT: 194 QRS: -62 QRSD: 97 T: 0 QT: 377 QTc: 406 Interpretive Statements SINUS RHYTHM INCOMPLETE RIGHT BUNDLE BRANCH BLOCK BORDERLINE R WAVE PROGRESSION, ANTERIOR LEADS INFERIOR INFARCT, AGE INDETERMINATE BORDERLINE T WAVE ABNORMALITY- ANTERIOR LEADS BASELINE ARTIFACT- II, III, AVR, AVL, AVF, V1-V6 ABNORMAL ECG Electronically Signed On 05-18-2021 14:23:21 CDT by Tyrel Cain D.O.
--- NOTE | 2021-05-18 12:29 | ED.GENADULT ---
HPI - General Adult General Chief complaint: Fall Stated complaint: WEAKNESS Time Seen by Provider: 05/18/21 12:00 Source: patient, family and RN notes reviewed Mode of arrival: EMS Limitations: no limitations History of Present Illness HPI narrative: This is a 81 year old female who presents from home for evaluation of weakness and a fall. Patient's daughter is at bedside to assist with history. She states patient reported fall hitting her head on door and falling to the ground. They heard the thud from patient fall, and she states patient was awake but she seemed out of it. She reports patients blood pressure was low with SBP 90s so they sat her down and got her to drink water. Her blood pressure improved to 100s so they stood her up and patient became weak and asked to sit down. Patient states she has not felt well for 1 week. She has intermittent frontal headache for 3 days. She has intermittent epigastric discomfort with nausea, and she had an episode of emesis in the ambulance. She reports back pain to her daughter but patient denies having an back pain currently. she also denies neck pain and chest pain. She also denies sob or cough. Related Data Home Medications Medication Instructions Recorded Confirmed allopurinol 100 mg PO DAILY 05/18/21 05/18/21 amlodipine 5 mg PO HS 05/18/21 05/18/21 atorvastatin 40 mg PO HS 05/18/21 05/18/21 calcitriol 0.25 mcg PO HS 05/18/21 05/18/21 ergocalciferol (vitamin D2) 1,250 mcg PO WEEKLY 05/18/21 05/18/21 ferrous gluconate 324 mg PO HS 05/18/21 05/18/21 furosemide 20 mg PO DAILY 05/18/21 05/18/21 glipizide 10 mg PO BID 05/18/21 05/18/21 lisinopril 40 mg PO DAILY 05/18/21 05/18/21 metoprolol succinate 100 mg PO DAILY 05/18/21 05/18/21 omeprazole 20 mg PO DAILY 05/18/21 05/18/21 rivaroxaban [Xarelto] 20 mg PO DAILY 05/18/21 05/18/21 semaglutide [Rybelsus] 7 mg PO DAILY 05/18/21 05/18/21 Allergies Allergy/AdvReac Type Severity Reaction Status Date / Time No Known Allergies Allergy Verified 05/18/21 18:07 Review of Systems Review of Systems: All systems reviewed & are unremarkable except as noted in HPI and below Constitutional: Constitutional: Denies chills, Denies fever(s) and Reports weakness Cardiovascular: Cardiovascular: Reports chest pain and Denies radiating jaw, neck or arm pain Respiratory: Respiratory: Denies cough, Denies dyspnea and Denies wheezing Gastrointestinal: Gastrointestinal: Reports abdominal pain, Denies diarrhea, Reports nausea and Reports vomiting Musculoskeletal: Musculoskeletal: Reports back pain [facility] Past Medical History Medical History (Updated 05/18/21 @ 23:01 by Reshma Messer PA-C) Reed's esophagus Cancer of left breast Status post mastectomy and chemotherapy. Chronic anticoagulation Chronic kidney disease, stage 3 Baseline creatinine ranges between 1.2 and 1.50. Hypertension Type 2 diabetes mellitus Venous thromboembolism Surgical History Surgical History (Updated 05/18/21 @ 22:54 by Reshma Messer PA-C) History of bilateral cataract extraction History of cholecystectomy (02/2018) History of colonoscopy with polypectomy (01/24/21) History of endoscopic retrograde cholangiopancreatography (02/2018) History of esophagogastroduodenoscopy (01/24/21) History of hysterectomy History of left mastectomy History of parathyroidectomy (09/13/18) Left inferior parathyroidectomy for benign adenoma. History of tonsillectomy Family History Family History Sibling Diabetes mellitus Mother Diabetes mellitus Social History Social History (Updated 05/18/21 @ 22:53 by Reshma Messer PA-C) Social History: Surrogate decision maker: Uzair Martinez, son. Code status: Full code. Smoking packs per day: 1 Smoking cigarettes per day: 20.0 Years smoked: 7 Smoking pack-years: 7.00 Smoking status: Former smoker Tobacco type: cigarettes Al
[2021-05-18] MEDS: SODIUM CHLORIDE 0.9% IV 1,000 ML 999 ML IV CONT (13:23)
[2021-05-18 13:29] LABS: Basophils Percent Auto 0.3 % (0.2-1.2); Eosinophils Absolute Auto 0.1 K/mm3 (0-0.3); Eosinophils Percent Auto 1.1 % (0-4.4); Hematocrit 36.6 % (37.0-47.0); Hemoglobin 12.9 g/dL (12.0-15.0); Immature Granulocyte Absolute 0.07 K/mm3 (0.00-0.031); Immature Granulocyte Percent A 0.6 % (0-0.5); Lymphocytes Absolute Auto 1.79 K/mm3 (0.9-3.2); Lymphocytes Percent Auto 16.6 % (18.3-44.2); Mean Corpuscular HGB Conc 35.2 g/dl (32-36); Mean Corpuscular Hemoglobin 31.2 pg (26-34); Mean Corpuscular Volume 88.6 fl (80-100); Mean Platelet Volume 9.5 fl (7.4-10.4); Monocytes Absolute Auto 0.9 K/mm3 (0.1-0.6); Monocytes Percent Auto 8.6 % (2.6-8.5); Neutrophils Absolute Auto 7.9 K/mm3 (1.3-6.7); Neutrophils Percent Auto 72.8 % (45.5-73.1); Platelet Count Result 228 k/mm3 (150-375); Red Blood Count 4.13 M/mm3 (4.2-5.4); Red Cell Distribution Width 13.2 % (11.5-14.5); White Blood Count 10.8 K/mm3 (4.5-10.0)
[2021-05-18 13:39] LABS: INR 2.1; Prothrombin Time 22.7 Seconds (11.1-14.7)
[2021-05-18 13:40] LABS: Lactic Acid Reflex 1.1 mmol/L (0.7-2.1)
[2021-05-18 13:53] LABS: Troponin I < 0.012 ng/mL (0.000-0.034)
[2021-05-18 13:58] LABS: Add Urine Microscopic? YES; Appearance Urine Cloudy (Clear); Bilirubin Urine Negative (Negative); Blood Urine 1+ (Negative); Color Urine Yellow (Yellow); Glucose Urine UA Negative (Negative); Ketones Urine Negative (Negative); Leukocyte Esterase Ur 3+ LEU/UL (Negative); Mucus Urine Rare /lpf; Nitrate Urine Negative (Negative); Protein Urine Negative (Negative); Specific Grav Ur 1.008 (1.001-1.035); Urobilinogen Urine Negative mg/dL (<2.0); WBC Urine 16-20 /hpf
[2021-05-18 14:00] LABS: Alanine Aminotransferase 17 U/L (4-35); Albumin Level 4.4 g/dL (3.5-5.1); Alkaline Phosphatase 62 U/L (38-126); Anion Gap 8 mmol/L (8-16); Aspartate Amino Transferase 26 U/L (14-36); Bilirubin,Total 0.7 mg/dL (0.2-1.3); Blood Urea Nitrogen 23 mg/dL (7-17); Calcium 9.9 mg/dL (8.4-10.2); Carbon Dioxide 28 mmol/L (22-30); Chloride 82 mmol/L (98-107); Estimated CRCL calculation 20 ml/min; Estimated Glomerular Filt Rate 29; Glucose 132 mg/dL (65-110); Lipase 159 U/L (23-300); Potassium 4.2 mmol/L (3.4-5.0); Sodium 118 mmol/L (137-145)
[2021-05-18] MEDS: SODIUM CHLORIDE 0.9% IV 1,000 ML 75 ML IV CONT (15:30)
--- NOTE | 2021-05-18 16:46 | PC.NURSE ---
floor nurse unable to take report at this time. meal ordered per pt request
--- NOTE | 2021-05-18 17:57 | ADMGEN ---
This patient, Sandee Martinez, was admitted to Medical Room 256-. Patient/family oriented to hospital policies and general routines including ID bracelet, bed and alarms, visiting hours, pain management, procedures, bathroom and other care routines, personal items, smoking policy, room service/diet, and visiting hours. Information on how to activate the Rapid Response Team has been discussed. Patient/Family are encouraged to report perceived risks to care and to ask questions if they do not understand what they are told or what they should do.
--- NOTE | 2021-05-18 18:00 | PM.IMHP ---
H&P: HPI History of Present Illness Date/Time: 05/18/21 18:00 Chief Complaint: Weakness. Narrative: This is an 81-year-old female with hypertension, chronic kidney disease, and history of venous thromboembolism presented to the emergency department earlier today via EMS from home for evaluation of weakness. Not long prior to arrival, the patient had an unwitnessed fall in which she struck her head on a door and fell to the ground. Her daughter heard the fall and came to the patient's side and reports that she ?seemed out of it.? Her blood pressure at that time was reportedly in the 90 systolic so they got her some water to drink and once her blood pressure improved to above 100 systolic they stood her up though the patient became very weak and asked to sit back down. The patient tells me that she has not felt well for about a week with generalized malaise, nausea, and frontal headache. Her appetite has not been very good though she admits that has been going on for several months since her . In the emergency department she was found to have pretty significant orthostatic hypotension as well as hyponatremia, with a sodium level of 118. She is being admitted in this setting. Other than decreased oral intake she has not had much change in her routine and denies any new additions to her medications recently. She does not think she lost consciousness in the fall today and denies any significant injuries. She has not had fever, chills, or sweats. She denies chest pain or shortness of breath. No vomiting or diarrhea. No dysuria. She told her daughter she was having some mild back discomfort after the fall but she denied that to myself and the ER physician. Review of Systems Review of Systems: Twelve systems were reviewed with pertinent positives and negatives as per HPI. Patient denies acute confusion but reports that she does sometimes get forgetful ?my kids will tell you that.? No recent cold or flu symptoms. No sick contacts. She denies chest pain shortness of breath. No cough. No abdominal pain. She believes her weight has been stable. Reports feeling down since her passed but denies significant depression. No harmful thoughts. Except as documented, all other systems were reviewed and are negative. 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 Chronic anticoagulation Chronic kidney disease, stage 3 Baseline creatinine ranges between 1.2 and 1.50. Hypertension Type 2 diabetes mellitus Venous thromboembolism Surgical History Surgical History (Updated 05/18/21 @ 22:54 by Reshma Messer PA-C) History of bilateral cataract extraction History of cholecystectomy (02/2018) History of colonoscopy with polypectomy (01/24/21) History of endoscopic retrograde cholangiopancreatography (02/2018) History of esophagogastroduodenoscopy (01/24/21) History of hysterectomy History of left mastectomy History of parathyroidectomy (09/13/18) Left inferior parathyroidectomy for benign adenoma. History of tonsillectomy Family History Family History Sibling Diabetes mellitus Mother Diabetes mellitus Social History Social History (Updated 05/18/21 @ 22:53 by Reshma Messer PA-C) Social History: Surrogate decision maker: Uzair Martinez, son. Code status: Full code. Smoking packs per day: 1 Smoking cigarettes per day: 20.0 Years smoked: 7 Smoking pack-years: 7.00 Smoking status: Former smoker Tobacco type: cigarettes Alcohol intake: never Substance use: never Substance use type: does not use Additional living arrangements comments: Resides in [place]. Her in spring 2020 and since that time her daughter has been staying with her. They had a total 4 children. 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
[2021-05-18 18:04] LABS: Glucose Point of Care 105 mg/dl (65-105)
[2021-05-18 19:04] LABS: Anion Gap 12 mmol/L (8-16); Blood Urea Nitrogen 22 mg/dL (7-17); Calcium 9.5 mg/dL (8.4-10.2); Carbon Dioxide 25 mmol/L (22-30); Chloride 86 mmol/L (98-107); Estimated CRCL calculation 23 ml/min; Estimated Glomerular Filt Rate 33; Glucose 94 mg/dL (65-110); Sodium 123 mmol/L (137-145)
[2021-05-18 21:17] LABS: Glucose Point of Care 186 mg/dl (65-105)
[2021-05-19] VITALS (13 sets, daily range): BP systolic 84–134; BP diastolic 44–86; PULSE 74–100; RESP 16–18; TEMP 36–36.3; O2SAT 92–96
[2021-05-19] MEDS: calcitrioL 0.25 MCG CAPSULE PO ×2 (00:01→20:13)
[2021-05-19] MEDS: ATORVASTATIN 40 MG TABLET PO ×2 (00:01→20:13)
[2021-05-19] MEDS: FERROUS GLUCONATE 324 MG TABLET PO ×2 (00:01→20:13)
[2021-05-19 00:57] LABS: Sodium 124 mmol/L (137-145)
[2021-05-19] MEDS: SODIUM CHLORIDE 0.9% IV 1,000 ML 65 ML IV CONT (04:57)
[2021-05-19 05:19] LABS: Basophils Percent Auto 0.3 % (0.2-1.2); Eosinophils Absolute Auto 0.2 K/mm3 (0-0.3); Eosinophils Percent Auto 1.7 % (0-4.4); Hemoglobin 12.9 g/dL (12.0-15.0); Immature Granulocyte Absolute 0.05 K/mm3 (0.00-0.031); Immature Granulocyte Percent A 0.6 % (0-0.5); Lymphocytes Absolute Auto 1.32 K/mm3 (0.9-3.2); Lymphocytes Percent Auto 15.3 % (18.3-44.2); Mean Corpuscular HGB Conc 34.9 g/dl (32-36); Mean Corpuscular Hemoglobin 31.5 pg (26-34); Mean Corpuscular Volume 90.5 fl (80-100); Mean Platelet Volume 9.4 fl (7.4-10.4); Monocytes Absolute Auto 0.9 K/mm3 (0.1-0.6); Monocytes Percent Auto 10.2 % (2.6-8.5); Neutrophils Absolute Auto 6.2 K/mm3 (1.3-6.7); Neutrophils Percent Auto 71.9 % (45.5-73.1); Platelet Count Result 207 k/mm3 (150-375); Red Blood Count 4.09 M/mm3 (4.2-5.4); Red Cell Distribution Width 13.2 % (11.5-14.5); White Blood Count 8.7 K/mm3 (4.5-10.0)
[2021-05-19 05:28] LABS: Hemoglobin A1C 7.2 % (<5.7)
[2021-05-19 05:32] LABS: Anion Gap 11 mmol/L (8-16); Blood Urea Nitrogen 20 mg/dL (7-17); Calcium 9.1 mg/dL (8.4-10.2); Carbon Dioxide 22 mmol/L (22-30); Chloride 92 mmol/L (98-107); Estimated CRCL calculation 24 ml/min; Estimated Glomerular Filt Rate 36; Glucose 73 mg/dL (65-110); Magnesium 1.1 mg/dL (1.6-2.3); Potassium 3.7 mmol/L (3.4-5.0); Sodium 125 mmol/L (137-145)
[2021-05-19 07:04] LABS: Glucose Point of Care 80 mg/dl (65-105)
[2021-05-19] MEDS: allopurinoL 100 MG TABLET PO (08:01)
[2021-05-19] MEDS: PANTOPRAZOLE 40 MG TABLET PO (08:01)
[2021-05-19] MEDS: MAGNESIUM SULF 1 GM/D5W 100 ML 1 GM/100 ML BAG IVPB (09:52)
[2021-05-19 11:23] LABS: Sodium 123 mmol/L (137-145)
[2021-05-19 12:14] LABS: Glucose Point of Care 185 mg/dl (65-105)
--- NOTE | 2021-05-19 13:10 | PM.IMPN ---
Progress Note: A&P Assessment and Plan (1) Fall from ground level: Code(s): W18.30XA - Fall on same level, unspecified, initial encounter Status: Acute Assessment and Plan: Most likely due to orthostatic hypotension. She denies loss of consciousness. Fall precautions PT/OT (2) Hyponatremia: Code(s): E87.1 - Hypo-osmolality and hyponatremia Status: Acute Assessment and Plan: Likely due to poor PO intake TSH, Cortisol, FEna pending 05/18 PM 118 05/19 AM 125 and IV NS stopped, 05/19 PM 123 x 2 05/19 PM resumed IV NS at 50 ml/hr for 250 ml only F/u lab with goal improvement 6-8 mEq/L improvement over first 24 hours and 10-14 mEq/L improvement over the first 48 hours (3) Orthostatic hypotension: Code(s): I95.1 - Orthostatic hypotension Status: Acute Assessment and Plan: Continue cautious IV fluid rehydration with close monitoring of orthostatic vital signs. Fall precautions. (4) Compression fracture of T11 vertebra: Code(s): S22.080A - Wedge compression fracture of T11-T12 vertebra, initial encounter for closed fracture Status: Acute Assessment and Plan: New from previous imaging. Possibly sustained during fall 05/19 but she is denying significant back pain at this time. Analgesics available as needed. PT/OT. (5) Abnormal urinalysis: Code(s): R82.90 - Unspecified abnormal findings in urine Status: Acute Assessment and Plan: Given Rocephin the emergency department. No UTI sx's. No further antibiotics, pending urine culture. (6) Type 2 diabetes mellitus: Code(s): E11.9 - Type 2 diabetes mellitus without complications Status: Acute Assessment and Plan: Random glucose today was 132. Hold oral hypoglycemics while hospitalized given worsening renal function. (7) Chronic anticoagulation: Code(s): Z79.01 - correction (current) use of anticoagulants Status: Acute Assessment and Plan: Continue Xarelto which was prescribed for DVT earlier this year. Fall precautions initiated. (8) Hypertension: Code(s): I10 - Essential (primary) hypertension Status: Acute Assessment and Plan: Antihypertensives are on hold given orthostatic hypotension. (9) Chronic kidney disease, stage 3: Code(s): N18.30 - Chronic kidney disease, stage 3 unspecified Status: Acute Assessment and Plan: Creatinine is elevated from baseline, likely due to dehydration. Continue cautious IV fluid rehydration. Avoid nephrotoxic agents. Subjective Date/time seen: 05/19/21 13:10 Interval history: Admitted 05/18 with hyponatremia, confusion, fall, T11 comp fx, possible UTI. 05/19 visit: Tired. Comfortable. Tolerated diet. Denied pain at rest. Denied sob. Denied gi/gu issues. Denied bleeding. Review of Systems Review of Systems: All systems reviewed & are unremarkable except as noted in HPI and below Exam Narrative: General: Well-developed elderly female in NAD HEENT: PERRL, Sclerae anicteric. Mucosa pink. Neck: No JVD Respiratory: Lungs are clear to auscultation bilaterally. Cardiovascular: Regular rate and rhythm with S1-S2. Gastrointestinal: Abdomen is soft, nontender, and nondistended with positive bowel sounds. Skin: Warm and dry. No rash or lesions on limited exam. Extremities: No cyanosis, clubbing, or edema. Neurological: Cranial nerves 2-12 are grossly intact. Speech is clear. Psychiatric: Pleasant cooperative. Alert. Oriented to person, knows she is hospitalized, uncertain regarding which hospital and what year it is. Objective Data Vital Signs Vital Signs: Vital Signs - 24 hr 05/18/21 13:19 05/18/21 14:36 05/18/21 16:39 Temperature Pulse Rate 78 73 76 Respiratory Rate 17 15 Blood Pressure 64/47 L 132/84 126/92 H Pulse Oximetry 97 94 05/18/21 17:28 05/18/21 17:59 05/18/21 20:00 Temperature Pulse Rate 77 80 79 Respira
[2021-05-19 15:22] LABS: Sodium 123 mmol/L (137-145)
[2021-05-19 16:49] LABS: Glucose Point of Care 196 mg/dl (65-105)
[2021-05-19] MEDS: RIVAROXABAN 15 MG TABLET PO (17:54)
[2021-05-19] MEDS: SODIUM CHLORIDE 0.9% IV 250 ML 50 ML IV CONT (17:54)
[2021-05-19 18:47] LABS: Creatinine Urine 51.4 mg/dL
[2021-05-19 19:19] LABS: Sodium Urine Random 43 meq/L
[2021-05-19 19:24] LABS: Sodium 126 mmol/L (137-145)
[2021-05-19 21:06] LABS: Glucose Point of Care 195 mg/dl (65-105)
[2021-05-20] VITALS (13 sets, daily range): BP systolic 101–128; BP diastolic 57–76; PULSE 73–109; RESP 14–20; TEMP 36.6–36.7; O2SAT 93–95
[2021-05-20 05:48] LABS: Albumin Level 3.6 g/dL (3.5-5.1); Anion Gap 7 mmol/L (8-16); Blood Urea Nitrogen 21 mg/dL (7-17); Carbon Dioxide 23 mmol/L (22-30); Chloride 97 mmol/L (98-107); Estimated CRCL calculation 21 ml/min; Estimated Glomerular Filt Rate 31; Glucose 135 mg/dL (65-110); Phosphorus 2.9 mg/dL (2.5-4.5); Sodium 127 mmol/L (137-145)
[2021-05-20 07:02] LABS: Glucose Point of Care 126 mg/dl (65-105)
[2021-05-20] MEDS: PANTOPRAZOLE 40 MG TABLET PO (09:25)
[2021-05-20] MEDS: allopurinoL 100 MG TABLET PO (09:25)
[2021-05-20 12:17] LABS: Glucose Point of Care 199 mg/dl (65-105)
--- NOTE | 2021-05-20 13:27 | PM.IMPN ---
Progress Note: A&P Assessment and Plan (1) Fall from ground level: Code(s): W18.30XA - Fall on same level, unspecified, initial encounter Status: Acute Assessment and Plan: Most likely due to orthostatic hypotension. She denies loss of consciousness. Fall precautions PT/OT 05/20/21 13:27 patient 81-year-old female was brought emergency depart after see had fell and ground level, most likely secondary to dehydration and hypotension,there was no acute injury however patient complains of low back pain most likely sprain after the fall, patient states see was able to participate in physical therapy was able to walk, or patient back pain will apply 2 Lidoderm patches, will continue PT OT, upon arrival patient and hyponatremia 118 and today her sodium level is 127, most likely secondary to dehydration will gently hydrate the patient and monitor, continue PT OT and further recommendation to follow. (2) Hyponatremia: Code(s): E87.1 - Hypo-osmolality and hyponatremia Status: Acute Assessment and Plan: Likely due to poor PO intake TSH, Cortisol, FEna pending 05/18 PM 118 05/19 AM 125 and IV NS stopped, 05/19 PM 123 x 2 05/19 PM resumed IV NS at 50 ml/hr for 250 ml only F/u lab with goal improvement 6-8 mEq/L improvement over first 24 hours and 10-14 mEq/L improvement over the first 48 hours (3) Orthostatic hypotension: Code(s): I95.1 - Orthostatic hypotension Status: Acute Assessment and Plan: Continue cautious IV fluid rehydration with close monitoring of orthostatic vital signs. Fall precautions. (4) Compression fracture of T11 vertebra: Code(s): S22.080A - Wedge compression fracture of T11-T12 vertebra, initial encounter for closed fracture Status: Acute Assessment and Plan: New from previous imaging. Possibly sustained during fall 05/19 but she is denying significant back pain at this time. Analgesics available as needed. PT/OT. (5) Abnormal urinalysis: Code(s): R82.90 - Unspecified abnormal findings in urine Status: Acute Assessment and Plan: Given Rocephin the emergency department. No UTI sx's. No further antibiotics, pending urine culture. (6) Type 2 diabetes mellitus: Code(s): E11.9 - Type 2 diabetes mellitus without complications Status: Acute Assessment and Plan: Random glucose today was 132. Hold oral hypoglycemics while hospitalized given worsening renal function. (7) Chronic anticoagulation: Code(s): Z79.01 - manager intermediate (current) use of anticoagulants Status: Acute Assessment and Plan: Continue Xarelto which was prescribed for DVT earlier this year. Fall precautions initiated. (8) Hypertension: Code(s): I10 - Essential (primary) hypertension Status: Acute Assessment and Plan: Antihypertensives are on hold given orthostatic hypotension. (9) Chronic kidney disease, stage 3: Code(s): N18.30 - Chronic kidney disease, stage 3 unspecified Status: Acute Assessment and Plan: Creatinine is elevated from baseline, likely due to dehydration. Continue cautious IV fluid rehydration. Avoid nephrotoxic agents. Subjective Date/time seen: 05/20/21 13:27 patient 81-year-old female was brought emergency depart after see had fell and ground level, most likely secondary to dehydration and hypotension,there was no acute injury however patient complains of low back pain most likely sprain after the fall, patient states see was able to participate in physical therapy was able to walk, or patient back pain will apply 2 Lidoderm patches, will continue PT OT, upon arrival patient and hyponatremia 118 and today her sodium level is 127, most likely secondary to dehydration will gently hydrate the patient and monitor, continue PT OT and further recommendation to follow. Review of Systems Review of Systems: All systems reviewed & are unremarkable exce
[2021-05-20] MEDS: RIVAROXABAN 15 MG TABLET PO (16:26)
[2021-05-20 16:43] LABS: Glucose Point of Care 168 mg/dl (65-105)
[2021-05-20] MEDS: FERROUS GLUCONATE 324 MG TABLET PO (20:16)
[2021-05-20] MEDS: calcitrioL 0.25 MCG CAPSULE PO (20:16)
[2021-05-20] MEDS: ATORVASTATIN 40 MG TABLET PO (20:16)
[2021-05-20 20:36] LABS: Glucose Point of Care 159 mg/dl (65-105)
[2021-05-21] VITALS (13 sets, daily range): BP systolic 104–138; BP diastolic 70–93; PULSE 86–141; RESP 14–22; TEMP 36.4–36.8; O2SAT 90–100
[2021-05-21 06:30] LABS: Albumin Level 3.9 g/dL (3.5-5.1); Anion Gap 9 mmol/L (8-16); Blood Urea Nitrogen 19 mg/dL (7-17); Calcium 9.5 mg/dL (8.4-10.2); Carbon Dioxide 21 mmol/L (22-30); Chloride 99 mmol/L (98-107); Estimated CRCL calculation 26 ml/min; Estimated Glomerular Filt Rate 39; Glucose 136 mg/dL (65-110); Phosphorus 2.7 mg/dL (2.5-4.5); Potassium 4.3 mmol/L (3.4-5.0); Sodium 129 mmol/L (137-145)
[2021-05-21 08:58] LABS: Glucose Point of Care 132 mg/dl (65-105)
[2021-05-21] MEDS: allopurinoL 100 MG TABLET PO (08:58)
[2021-05-21] MEDS: PANTOPRAZOLE 40 MG TABLET PO (08:58)
[2021-05-21 11:41] LABS: Glucose Point of Care 203 mg/dl (65-105)
[2021-05-21] MEDS: INSULIN ASPART (*BKC) 100 UNITS/ML SUB-Q (11:44)
--- NOTE | 2021-05-21 11:48 | PM.IMPN ---
Progress Note: A&P Assessment and Plan (1) Fall from ground level: Code(s): W18.30XA - Fall on same level, unspecified, initial encounter Status: Acute Assessment and Plan: Most likely due to orthostatic hypotension. She denies loss of consciousness. Fall precautions PT/OT Sodium slowly improving plan dc home tomorrow with home health (2) Hyponatremia: Code(s): E87.1 - Hypo-osmolality and hyponatremia Status: Acute Assessment and Plan: Likely due to poor PO intake (3) Orthostatic hypotension: Code(s): I95.1 - Orthostatic hypotension Status: Acute Assessment and Plan: Continue cautious IV fluid rehydration with close monitoring of orthostatic vital signs. Fall precautions. (4) Compression fracture of T11 vertebra: Code(s): S22.080A - Wedge compression fracture of T11-T12 vertebra, initial encounter for closed fracture Status: Acute Assessment and Plan: New from previous imaging. Possibly sustained during fall 05/19 but she is denying significant back pain at this time. Analgesics available as needed. PT/OT. (5) Abnormal urinalysis: Code(s): R82.90 - Unspecified abnormal findings in urine Status: Acute Assessment and Plan: Given Rocephin continue rocephin and UC is positive (6) Type 2 diabetes mellitus: Code(s): E11.9 - Type 2 diabetes mellitus without complications Status: Acute Assessment and Plan: Random glucose today was 132. Hold oral hypoglycemics while hospitalized given worsening renal function. (7) Chronic anticoagulation: Code(s): Z79.01 - long-term (current) use of anticoagulants Status: Acute Assessment and Plan: Continue Xarelto which was prescribed for DVT earlier this year. Fall precautions initiated. (8) Hypertension: Code(s): I10 - Essential (primary) hypertension Status: Acute Assessment and Plan: Antihypertensives are on hold given orthostatic hypotension. (9) Chronic kidney disease, stage 3: Code(s): N18.30 - Chronic kidney disease, stage 3 unspecified Status: Acute Assessment and Plan: Creatinine is elevated from baseline, likely due to dehydration. Continue cautious IV fluid rehydration. Avoid nephrotoxic agents. Subjective Date/time seen: 05/21/21 11:48 Interval history: Admitted 05/18 with hyponatremia, confusion, fall, T11 comp fx, possible UTI. Pt sodium is drifting up today is 129. Pt can be discharged tomorrow with home health. Pt is doing better with PT pt uses a wheelchair at home Review of Systems Review of Systems: All systems reviewed & are unremarkable except as noted in HPI and below Exam Narrative: Patient is comfortable HEENT: eyes are clear and none icteric LUNGS: normal respiratory effort ABD0: not distended Lower extremities: no edema SKIN: nonjaundiced Neuro grossly intact normal speech. Objective Data Vital Signs Vital Signs: Vital Signs - 24 hr 05/20/21 12:00 05/20/21 14:36 05/20/21 14:38 Temperature 36.6 C Pulse Rate 89 88 96 Respiratory Rate 14 Blood Pressure 115/69 126/76 Pulse Oximetry 94 05/20/21 14:40 05/20/21 16:00 05/20/21 20:00 Temperature Pulse Rate 109 H 87 95 Respiratory Rate 20 Blood Pressure 101/70 Pulse Oximetry 95 05/20/21 21:43 05/20/21 21:44 05/20/21 21:45 Temperature 36.6 C 36.6 C Pulse Rate 95 95 Respiratory Rate 20 20 Blood Pressure 121/66 117/76 102/57 L Pulse Oximetry 95 95 05/21/21 00:00 05/21/21 04:00 05/21/21 05:10 Temperature 36.4 C Pulse Rate 103 H 96 86 Respiratory Rate 16 Blood Pressure 116/74 Pulse Oximetry 91 05/21/21 08:00 Temperature Pulse Rate 97 Respiratory Rate Blood Pressure Pulse Oximetry 97 Intake/Output Intake/Output: Intake & Output 05/18/21 05/19/21 05/20/21 05/21/21 23:59 23:59 23:59 23:59 Intake Total 1270 2270 1420 640 Out
--- NOTE | 2021-05-21 12:06 | P.CDI_ITS ---
CDI Query Clarification Request -05/18 urine culture growing >100,000 gram negative bacilli - abnormal urinalysis and given Rocephin continue Rocephin and UC is positive has been documented. Please clarify if there is a possible corresponding diagnosis for above findings: * UTI * Colonization * Contaminate * Other * Unable to determine <Mago Shoemaker RN - Last Filed: 05/21/21 12:09> UTI RULED IN <Angeli Boone MD - Last Filed: 05/22/21 09:13>
[2021-05-21] MEDS: RIVAROXABAN 15 MG TABLET PO (16:28)
[2021-05-21 16:33] LABS: Glucose Point of Care 144 mg/dl (65-105)
[2021-05-21] MEDS: calcitrioL 0.25 MCG CAPSULE PO (20:51)
[2021-05-21] MEDS: ATORVASTATIN 40 MG TABLET PO (20:51)
[2021-05-21] MEDS: FERROUS GLUCONATE 324 MG TABLET PO (20:55)
[2021-05-21 21:22] LABS: Glucose Point of Care 172 mg/dl (65-105)
[2021-05-22] VITALS (13 sets, daily range): BP systolic 82–121; BP diastolic 32–99; PULSE 101–158; RESP 17–20; TEMP 36.7–37.5; O2SAT 91–97
[2021-05-22 06:11] LABS: Albumin Level 3.8 g/dL (3.5-5.1); Anion Gap 8 mmol/L (8-16); Blood Urea Nitrogen 17 mg/dL (7-17); Calcium 9.6 mg/dL (8.4-10.2); Carbon Dioxide 22 mmol/L (22-30); Chloride 99 mmol/L (98-107); Estimated CRCL calculation 26 ml/min; Estimated Glomerular Filt Rate 39; Glucose 139 mg/dL (65-110); Phosphorus 3.3 mg/dL (2.5-4.5); Sodium 129 mmol/L (137-145)
[2021-05-22 07:34] LABS: Glucose Point of Care 136 mg/dl (65-105)
[2021-05-22] MEDS: allopurinoL 100 MG TABLET PO (07:58)
[2021-05-22] MEDS: PANTOPRAZOLE 40 MG TABLET PO (07:58)
[2021-05-22 11:53] LABS: Glucose Point of Care 211 mg/dl (65-105)
[2021-05-22] MEDS: INSULIN ASPART (*BKC) 100 UNITS/ML SUB-Q (12:00)
[2021-05-22] MEDS: MIDODRINE HCL 2.5 MG TABLET PO ×2 (12:02→17:32)
--- NOTE | 2021-05-22 12:33 | PM.IMPN ---
Progress Note: A&P Assessment and Plan (1) Fall from ground level: Code(s): W18.30XA - Fall on same level, unspecified, initial encounter Status: Acute Assessment and Plan: Most likely due to orthostatic hypotension. She denies loss of consciousness. Fall precautions PT/OT Sodium slowly improving plan dc home tomorrow with home health (2) Hyponatremia: Code(s): E87.1 - Hypo-osmolality and hyponatremia Status: Acute Assessment and Plan: Likely due to poor PO intake (3) Orthostatic hypotension: Code(s): I95.1 - Orthostatic hypotension Status: Acute Assessment and Plan: Continue cautious IV fluid rehydration with close monitoring of orthostatic vital signs. Fall precautions. (4) Compression fracture of T11 vertebra: Code(s): S22.080A - Wedge compression fracture of T11-T12 vertebra, initial encounter for closed fracture Status: Acute Assessment and Plan: New from previous imaging. Possibly sustained during fall 05/19 but she is denying significant back pain at this time. Analgesics available as needed. PT/OT. (5) Abnormal urinalysis: Code(s): R82.90 - Unspecified abnormal findings in urine Status: Acute Assessment and Plan: Given Rocephin continue rocephin and UC is positive (6) Type 2 diabetes mellitus: Code(s): E11.9 - Type 2 diabetes mellitus without complications Status: Acute Assessment and Plan: Random glucose today was 132. Hold oral hypoglycemics while hospitalized given worsening renal function. (7) Chronic anticoagulation: Code(s): Z79.01 - detention (current) use of anticoagulants Status: Acute Assessment and Plan: Continue Xarelto which was prescribed for DVT earlier this year. Fall precautions initiated. (8) Hypertension: Code(s): I10 - Essential (primary) hypertension Status: Acute Assessment and Plan: Antihypertensives are on hold given orthostatic hypotension. (9) Chronic kidney disease, stage 3: Code(s): N18.30 - Chronic kidney disease, stage 3 unspecified Status: Acute Assessment and Plan: Creatinine is elevated from baseline, likely due to dehydration. Continue cautious IV fluid rehydration. Avoid nephrotoxic agents. 05/22/2021 patient with ongoing orthostatic hypertension TSH and cortisol within normal limits sodium slowly correcting add salt tablet IV fluids continued Lasix has been held due to hyponatremia and hypovolemia low-dose midodrine started after no improvement with IV fluid rehydration for 4 days will continue to monitor PT OT Discharge planning Subjective Date/time seen: 05/22/21 12:33 patient doing okay serum sodium still not at goal. Exam Narrative: Patient is comfortable HEENT: eyes are clear and none icteric EOMI LUNGS: normal respiratory effort no use of accessory muscles Symmetric chest rise ABD0: not distended Lower extremities: no edema SKIN: nonjaundiced no rash Neuro grossly intact normal speech. Objective Data Vital Signs Vital Signs: Vital Signs - 24 hr 05/22/21 00:00 05/22/21 04:00 05/22/21 04:43 Temperature 98.3 F Pulse Rate 117 H 101 H 110 H Respiratory Rate 18 Blood Pressure 106/68 Pulse Oximetry 93 05/22/21 08:00 05/22/21 08:07 05/22/21 08:08 Temperature 98.0 F 98.0 F 98.0 F Pulse Rate 133 H 132 H 151 H Respiratory Rate 18 20 20 Blood Pressure 119/79 103/70 82/32 L Pulse Oximetry 91 97 94 05/22/21 12:00 05/22/21 14:00 05/22/21 16:00 Temperature 99.5 F Pulse Rate 116 H 158 H 112 H Respiratory Rate 18 Blood Pressure 91/77 L Pulse Oximetry 93 05/22/21 20:00 05/22/21 20:22 05/22/21 20:24 Temperature 98.7 F Pulse Rate 109 H Respiratory Rate 17 Blood Pressure 119/57 L 121/83 112/99 H Pulse Oximetry 92 05/22/21 20:38 Temperature 98.7 F Pulse Rate 110 H Respiratory Rate 17 Blood P
[2021-05-22 16:52] LABS: Glucose Point of Care 173 mg/dl (65-105)
[2021-05-22] MEDS: ACETAMINOPHEN 325 MG TABLET 650 MG PO (17:31)
[2021-05-22] MEDS: RIVAROXABAN 15 MG TABLET PO (17:32)
[2021-05-22] MEDS: FERROUS GLUCONATE 324 MG TABLET PO (21:01)
[2021-05-22] MEDS: calcitrioL 0.25 MCG CAPSULE PO (21:01)
[2021-05-22] MEDS: ATORVASTATIN 40 MG TABLET PO (21:01)
[2021-05-22 21:23] LABS: Glucose Point of Care 161 mg/dl (65-105)
[2021-05-22] MEDS: SODIUM CHLORIDE 0.9% IV 1,000 ML 50 ML IV CONT (22:15)
[2021-05-23] VITALS (14 sets, daily range): BP systolic 100–144; BP diastolic 68–97; PULSE 80–140; RESP 17–20; TEMP 36.2–37.1; O2SAT 90–96
[2021-05-23 05:58] LABS: Basophils Absolute Auto 0.1 K/mm3 (0.0-0.1); Basophils Percent Auto 0.6 % (0.2-1.2); Eosinophils Absolute Auto 0.2 K/mm3 (0-0.3); Eosinophils Percent Auto 2.8 % (0-4.4); Hematocrit 32.4 % (37.0-47.0); Hemoglobin 11.1 g/dL (12.0-15.0); Immature Granulocyte Absolute 0.06 K/mm3 (0.00-0.031); Immature Granulocyte Percent A 0.8 % (0-0.5); Lymphocytes Absolute Auto 1.69 K/mm3 (0.9-3.2); Lymphocytes Percent Auto 21.1 % (18.3-44.2); Mean Corpuscular HGB Conc 34.3 g/dl (32-36); Mean Corpuscular Hemoglobin 32.1 pg (26-34); Mean Corpuscular Volume 93.6 fl (80-100); Mean Platelet Volume 9.8 fl (7.4-10.4); Monocytes Percent Auto 12.6 % (2.6-8.5); Neutrophils Percent Auto 62.1 % (45.5-73.1); Platelet Count Result 192 k/mm3 (150-375); Red Blood Count 3.46 M/mm3 (4.2-5.4); Red Cell Distribution Width 13.2 % (11.5-14.5)
[2021-05-23 06:08] LABS: Albumin Level 3.6 g/dL (3.5-5.1); Anion Gap 7 mmol/L (8-16); Blood Urea Nitrogen 19 mg/dL (7-17); Calcium 9.4 mg/dL (8.4-10.2); Carbon Dioxide 24 mmol/L (22-30); Chloride 100 mmol/L (98-107); Estimated CRCL calculation 23 ml/min; Estimated Glomerular Filt Rate 33; Glucose 144 mg/dL (65-110); Magnesium 1.1 mg/dL (1.6-2.3); Phosphorus 3.6 mg/dL (2.5-4.5); Sodium 131 mmol/L (137-145)
[2021-05-23 06:53] LABS: Glucose Point of Care 143 mg/dl (65-105)
[2021-05-23] MEDS: MIDODRINE HCL 2.5 MG TABLET PO ×2 (08:08→17:07)
[2021-05-23] MEDS: PANTOPRAZOLE 40 MG TABLET PO (08:09)
[2021-05-23] MEDS: allopurinoL 100 MG TABLET PO (08:09)
[2021-05-23] MEDS: SODIUM CHLORIDE 500 MG TABLET PO (08:09)
--- NOTE | 2021-05-23 10:19 | PM.IMPN ---
Progress Note: A&P Assessment and Plan (1) Fall from ground level: Code(s): W18.30XA - Fall on same level, unspecified, initial encounter Status: Acute Assessment and Plan: Most likely due to orthostatic hypotension. She denies loss of consciousness. Fall precautions PT/OT Sodium slowly improving plan dc home tomorrow with home health (2) Hyponatremia: Code(s): E87.1 - Hypo-osmolality and hyponatremia Status: Acute Assessment and Plan: Likely due to poor PO intake (3) Orthostatic hypotension: Code(s): I95.1 - Orthostatic hypotension Status: Acute Assessment and Plan: Continue cautious IV fluid rehydration with close monitoring of orthostatic vital signs. Fall precautions. (4) Compression fracture of T11 vertebra: Code(s): S22.080A - Wedge compression fracture of T11-T12 vertebra, initial encounter for closed fracture Status: Acute Assessment and Plan: New from previous imaging. Possibly sustained during fall 05/19 but she is denying significant back pain at this time. Analgesics available as needed. PT/OT. (5) Abnormal urinalysis: Code(s): R82.90 - Unspecified abnormal findings in urine Status: Acute Assessment and Plan: Given Rocephin continue rocephin and UC is positive (6) Type 2 diabetes mellitus: Code(s): E11.9 - Type 2 diabetes mellitus without complications Status: Acute Assessment and Plan: Random glucose today was 132. Hold oral hypoglycemics while hospitalized given worsening renal function. 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 Fall precautions initiated. (8) Hypertension: Code(s): I10 - Essential (primary) hypertension Status: Acute Assessment and Plan: Antihypertensives are on hold given orthostatic hypotension. (9) Chronic kidney disease, stage 3: Code(s): N18.30 - Chronic kidney disease, stage 3 unspecified Status: Acute Assessment and Plan: Creatinine is elevated from baseline, likely due to dehydration. Continue cautious IV fluid rehydration. Avoid nephrotoxic agents. 05/22/2021 patient with ongoing orthostatic hypertension TSH and cortisol within normal limits sodium slowly correcting add salt tablet IV fluids continued Lasix has been held due to hyponatremia and hypovolemia low-dose midodrine started after no improvement with IV fluid rehydration for 4 days will continue to monitor PT OT Discharge planning 05/23/2021 orthostatic hypotension improved w midodrine hyponatremia Na now > 130 pt w resting tachycardia, not secondary to hypovolemia infection hypoxia or other correctable cause identified will add low dose BB cont supportive care possible dc tomorrow Subjective Date/time seen: 05/23/21 10:19 pt doing ok no complaints still w tachycardia, asymptomatic Exam Narrative: Patient is comfortable HEENT: eyes are clear and none icteric EOMI LUNGS: normal respiratory effort no use of accessory muscles Symmetric chest rise ABD0: not distended Lower extremities: no edema SKIN: nonjaundiced no rash Neuro grossly intact normal speech. Objective Data Vital Signs Vital Signs: Vital Signs - 24 hr 05/22/21 12:00 05/22/21 14:00 05/22/21 16:00 Temperature 99.5 F Pulse Rate 116 H 158 H 112 H Respiratory Rate 18 Blood Pressure 91/77 L Pulse Oximetry 93 05/22/21 20:00 05/22/21 20:22 05/22/21 20:24 Temperature 98.7 F Pulse Rate 110 H Respiratory Rate 17 Blood Pressure 119/57 L 121/83 112/99 H Pulse Oximetry 92 05/22/21 20:38 05/23/21 00:00 05/23/21 03:29 Temperature 98.7 F 97.6 F Pulse Rate 110 H 101 H 102 H Respiratory Rate 17 17 Blood Pressure 119/57 L 115/75 Pulse Oximetry 92 94
[2021-05-23 10:27] LABS: Magnesium 1.1 mg/dL (1.6-2.3)
[2021-05-23] MEDS: MAGNESIUM SULFATE 3GM/D5W100ML 3 GM/100 ML BAG IVPB (11:08)
[2021-05-23] MEDS: METOPROLOL TARTRATE 6.25 MG TABLET PO ×2 (11:18→20:02)
[2021-05-23 11:41] LABS: Glucose Point of Care 188 mg/dl (65-105)
[2021-05-23] MEDS: RIVAROXABAN 15 MG TABLET PO (17:07)
[2021-05-23] MEDS: SODIUM CHLORIDE 0.9% IV 1,000 ML 50 ML IV CONT (19:53)
[2021-05-23] MEDS: calcitrioL 0.25 MCG CAPSULE PO (20:01)
[2021-05-23] MEDS: FERROUS GLUCONATE 324 MG TABLET PO (20:01)
[2021-05-23] MEDS: ATORVASTATIN 40 MG TABLET PO (20:01)
[2021-05-23 21:44] LABS: Glucose Point of Care 163 mg/dl (65-105)
[2021-05-24] VITALS (14 sets, daily range): BP systolic 119–142; BP diastolic 68–93; PULSE 84–103; RESP 14–20; TEMP 36.1–36.5; O2SAT 94–95
[2021-05-24 05:23] LABS: Basophils Absolute Auto 0.1 K/mm3 (0.0-0.1); Basophils Percent Auto 0.9 % (0.2-1.2); Eosinophils Absolute Auto 0.3 K/mm3 (0-0.3); Eosinophils Percent Auto 5.3 % (0-4.4); Hematocrit 33.3 % (37.0-47.0); Immature Granulocyte Absolute 0.03 K/mm3 (0.00-0.031); Immature Granulocyte Percent A 0.5 % (0-0.5); Lymphocytes Absolute Auto 1.67 K/mm3 (0.9-3.2); Lymphocytes Percent Auto 30.5 % (18.3-44.2); Mean Corpuscular Hemoglobin 30.9 pg (26-34); Mean Corpuscular Volume 93.5 fl (80-100); Mean Platelet Volume 9.4 fl (7.4-10.4); Monocytes Absolute Auto 0.6 K/mm3 (0.1-0.6); Monocytes Percent Auto 11.5 % (2.6-8.5); Neutrophils Absolute Auto 2.8 K/mm3 (1.3-6.7); Neutrophils Percent Auto 51.3 % (45.5-73.1); Platelet Count Result 200 k/mm3 (150-375); Red Blood Count 3.56 M/mm3 (4.2-5.4); Red Cell Distribution Width 12.9 % (11.5-14.5); White Blood Count 5.5 K/mm3 (4.5-10.0)
[2021-05-24 05:34] LABS: D Dimer 0.84 ug/mL (<0.48)
[2021-05-24 05:47] LABS: Alanine Aminotransferase 10 U/L (4-35); Albumin Level 3.6 g/dL (3.5-5.1); Alkaline Phosphatase 55 U/L (38-126); Anion Gap 10 mmol/L (8-16); Aspartate Amino Transferase 16 U/L (14-36); Bilirubin,Total 0.4 mg/dL (0.2-1.3); Blood Urea Nitrogen 17 mg/dL (7-17); Calcium 9.2 mg/dL (8.4-10.2); Carbon Dioxide 22 mmol/L (22-30); Chloride 102 mmol/L (98-107); Estimated CRCL calculation 24 ml/min; Estimated Glomerular Filt Rate 36; Glucose 139 mg/dL (65-110); Magnesium 1.8 mg/dL (1.6-2.3); Phosphorus 3.3 mg/dL (2.5-4.5); Potassium 4.1 mmol/L (3.4-5.0); Sodium 134 mmol/L (137-145)
[2021-05-24 07:27] LABS: Glucose Point of Care 138 mg/dl (65-105)
[2021-05-24] MEDS: MIDODRINE HCL 2.5 MG TABLET PO (09:06)
[2021-05-24] MEDS: allopurinoL 100 MG TABLET PO (09:06)
[2021-05-24] MEDS: SODIUM CHLORIDE 500 MG TABLET PO (09:06)
[2021-05-24] MEDS: METOPROLOL TARTRATE 6.25 MG TABLET PO ×2 (09:06→14:14)
[2021-05-24] MEDS: PANTOPRAZOLE 40 MG TABLET PO (09:06)
[2021-05-24 11:50] LABS: Glucose Point of Care 146 mg/dl (65-105)
--- NOTE | 2021-05-24 13:11 | PM.DS ---
DS: Admitting Diagnosis Discharge Date 05/24/21 Admitting Diagnosis (1) Fall from ground level: Code(s): W18.30XA - Fall on same level, unspecified, initial encounter Status: Acute Assessment and Plan: Most likely due to orthostatic hypotension. She denies loss of consciousness. Initiate fall precautions. PT/OT consulted. (2) Hyponatremia: Code(s): E87.1 - Hypo-osmolality and hyponatremia Status: Acute Assessment and Plan: Etiology is not entirely clear though I suspect she is dehydrated given poor oral intake recently. Continue judicious IV fluid rehydration overnight with close monitoring of sodium. Check urine and serum osmolalities as well as urine sodium and creatinine and TSH to rule out other etiologies. (3) Orthostatic hypotension: Code(s): I95.1 - Orthostatic hypotension Status: Acute Assessment and Plan: Continue cautious IV fluid rehydration with close monitoring of orthostatic vital signs. Initiate fall precautions. (4) Compression fracture of T11 vertebra: Code(s): S22.080A - Wedge compression fracture of T11-T12 vertebra, initial encounter for closed fracture Status: Acute Assessment and Plan: New from previous imaging. Possibly obtained in fall today but she is denying significant back pain at this time. Analgesics available as needed. PT/OT once feeling better. (5) Abnormal urinalysis: Code(s): R82.90 - Unspecified abnormal findings in urine Status: Acute Assessment and Plan: Given Rocephin the emergency department. She has no symptoms to suggest UTI thus will hold antibiotics, pending culture. (6) Type 2 diabetes mellitus: Code(s): E11.9 - Type 2 diabetes mellitus without complications Status: Acute Assessment and Plan: Random glucose today was 132. Hold oral hypoglycemics while hospitalized given worsening renal function. (7) Chronic anticoagulation: Code(s): Z79.01 - halfway (current) use of anticoagulants Status: Acute Assessment and Plan: Continue Xarelto which was prescribed for DVT earlier this year. Fall precautions initiated. (8) Hypertension: Code(s): I10 - Essential (primary) hypertension Status: Acute Assessment and Plan: Antihypertensives are on hold given orthostatic hypotension. (9) Chronic kidney disease, stage 3: Code(s): N18.30 - Chronic kidney disease, stage 3 unspecified Status: Acute Assessment and Plan: Creatinine is elevated from baseline, likely due to dehydration. Continue cautious IV fluid rehydration. Avoid nephrotoxic agents. 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
[2021-05-24 16:19] LABS: Glucose Point of Care 134 mg/dl (65-105)
--- NOTE | 2021-05-24 16:27 | PC.NURSE ---
At approximately 1600, orthostatics were taken on pt per Dr. Barnett order. Results were supine: 134/93, 88; sittin/93, 94; standin/89, 103. Dr. Barnett called and given the results.
== END 2021-05-24 17:12 | disposition home health service (06) | DRG 641 ==
LOC: ANHED 14:53 → ANH2MED 05-20 14:39
PROVIDERS: Physician Assistant; Admitting Provider Internal Medicine; Emergency Provider General Practice; PCP Internal Medicine; Visit Provider Hospitalist
DX: E87.1 Hypo-osmolality and hyponatremia (principal); S22.080A Wedge compression fracture of T11-T12 vertebra, initial encounter for closed fracture; N39.0 Urinary tract infection, site not specified; W18.09XA Striking against other object with subsequent fall, initial encounter; E86.0 Dehydration; I95.1 Orthostatic hypotension; I12.9 Hypertensive chronic kidney disease with stage 1 through stage 4 chronic kidney disease, or unspecified chronic kidney disease; E11.22 Type 2 diabetes mellitus with diabetic chronic kidney disease; N18.30 Chronic kidney disease, stage 3 unspecified; Z79.01 Long term (current) use of anticoagulants; Z85.3 Personal history of malignant neoplasm of breast; Z86.718 Personal history of other venous thrombosis and embolism; Z98.42 Cataract extraction status, left eye; Z98.41 Cataract extraction status, right eye; Z90.49 Acquired absence of other specified parts of digestive tract; Z90.710 Acquired absence of both cervix and uterus; Z87.891 Personal history of nicotine dependence
CPT/HCPCS: 36415; 70450; 71046; 74176; 80048; 80053; 80069; 81001; 82533; 82570; 82948; 83036; 83605; 83690; 83735; 84100; 84295; 84300; 84443; 84484; 85025; 85380; 85610; 85730; 87077; 87086; 87088; 87186; 93005; 96360; 97110; 97116; 97161; 97165; 97535; 99285; A9270; J0696; J1815; J3475; J7030; J7050

== ENCOUNTER 2022-02-13 08:08 | Outpatient (CLI) | payer MEDICARE, SELFPAY ==
--- NOTE | ~2022-02-13 | CT_ITS ---
EXAMINATION: CT abdomen pelvis wo con DATE: 02/13/2022 08:56 INDICATION: Pancreatic mass. TECHNIQUE: Computed tomography (CT) of the abdomen and pelvis was performed without intravenous contr ast. Automated exposure control and iterative reconstruction technique were employed. The dose-length product was 353.88 mGy-cm. COMPARISON: Abdomen MRI 02/11/2021, CT abdomen 01/22/21 FINDINGS: The visualized portions of the lung bases demonstrate mild atelectasis. There is a pneumato nadine in right middle lobe. There is bronchiectasis in right middle lobe. Calcified bilateral lung nod ules and calcified left hilar and mediastinal lymph nodes are consistent with old granulomatous disea se. No pleural effusion. The heart size is normal. There are coronary artery calcifications. No peric ardial effusion. There is a large sliding hiatal hernia. There is a 2.0 cm cyst in the liver. There i s mild intrahepatic biliary duct dilatation, likely secondary to cholecystectomy. Pneumobilia is note d, likely secondary to sphincterotomy. There is a 3.0 cm cystic lesion in the head of the pancreas. T he pancreatic duct is dilated to 8 mm. The spleen, adrenal glands, are normal. There are simple cysts and hemorrhagic cysts in the kidneys measuring up to 1.4 cm on the right. There is a 10 mm mass in l eft kidney containing fat, consistent with an angiomyolipoma. There is gas in the bladder lumen, like ly from recent instrumentation. There is diverticulosis of the colon without evidence of diverticulit is. The appendix is normal. There are no dilated loops of bowel. There is severe lumbar spondylosis. There is a chronic burst fracture of T11. IMPRESSION: 1. 3.0 cm cystic lesion of the pancreas, increased from 2.5 cm on 01/22/2021. Stable dilatation of the pancreatic duct to 8 mm. 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 Consider endoscopic ultrasound with fine-needle aspiration and surgical consultation. 2. Large sliding hiatal hernia. Reviewed, dictated and finalized at location B. IMPRESSION: 1. 3.0 cm cystic lesion of the pancreas, increased from 2.5 cm on 01/22/2021. St able dilatation of the pancreatic duct to 8 mm. These findings are suspicious f or intraductal papillary mucinous neoplasm (IPMN). Consider endoscopic ultraso und with fine-needle aspiration and surgical consultation. 2. Large sliding hiatal hernia.
== END 2022-02-13 08:09 | disposition home or self-care (01) ==
PROVIDERS: PCP Internal Medicine; Visit Provider Internal Medicine Gastroenterology
DX: K86.89 Other specified diseases of pancreas (principal)
CPT/HCPCS: 74176

== ENCOUNTER 2022-11-06 13:47 | Emergency (ER) | payer MEDICARE, SELFPAY ==
--- NOTE | 2022-11-06 13:51 | ED.GENADULT ---
HPI - General Adult General Chief complaint: Urogenital-Female Stated complaint: Urinary Problem/Ear Problem Time Seen by Provider: 11/06/22 14:25 Mode of arrival: ambulatory Limitations: no limitations History of Present Illness HPI narrative: 82-year-old female presents with concern for urinary tract infection. She reports she has been back pain, chills, urine frequency. Reports history of urinary tract infections. She denies fever, nausea, vomiting. She reports she also has been having some left ear discomfort and a mild sore throat with runny nose. She reports history of having have her ears cleaned out MD complaint: Dysuria Related Data Home Medications Medication Instructions Recorded Confirmed atorvastatin 40 mg tablet 40 mg PO HS 01/22/21 11/06/22 calcitriol 0.25 mcg capsule 0.25 mcg PO HS 01/22/21 11/06/22 furosemide 20 mg tablet 20 mg PO DAILY 01/22/21 11/06/22 glipizide 10 mg tablet 10 mg PO BID 01/22/21 11/06/22 omeprazole 20 mg capsule,delayed 20 mg PO DAILY 01/22/21 11/06/22 release allopurinol 100 mg tablet 100 mg PO DAILY 05/18/21 11/06/22 cranberry fruit concentrate 250 mg 250 mg PO BID 10/14/21 11/06/22 chewable tablet (Azo Cranberry) metoprolol tartrate 25 mg tablet 25 mg PO BID 10/14/21 11/06/22 midodrine 2.5 mg tablet 2.5 mg PO BID 10/14/21 11/06/22 famotidine 40 mg tablet 40 mg PO DAILY 11/06/22 11/06/22 semaglutide 7 mg tablet (Rybelsus) 7 mg PO DAILY 11/06/22 11/06/22 Allergies Allergy/AdvReac Type Severity Reaction Status Date / Time Sulfa (Sulfonamide Allergy Unknown PATIENT Verified 11/06/22 13:56 Antibiotics) DOESN'T REMEMBER Review of Systems Review of Systems: CONSTITUTIONAL: Denies malaise, sweats, or fever. Reports chills EYES: Denies visual changes, redness, or discharge. ENT: Denies congestion, sinus pain. Reports rhinorrhea, otalgia or sore throat. CARDIOVASCULAR: Denies chest pain, palpitations, or edema. RESPIRATORY: Denies cough or dyspnea. GASTROINTESTINAL: Denies abdominal pain, nausea, vomiting, diarrhea, bloody, or mucous stools. GENITOURINARY: Denies dysuria or hematuria. Reports urine frequency SKIN: Denies rash or itching. MUSCULOSKELETAL: Reports low back pain NEUROLOGIC: Denies numbness, weakness, or headache. PSYCHIATRIC: Denies anxiety or depression. All systems reviewed & are unremarkable except as noted in HPI and below PMFSH Past Medical History Medical History (Updated 11/06/22 @ 14:35 by Skylar Ibarra NP) Abnormal CT scan, stomach Acute on chronic anemia Reed's esophagus Cancer of left breast Status post mastectomy and chemotherapy. Chronic anticoagulation Chronic kidney disease Chronic kidney disease, stage 3 Baseline creatinine ranges between 1.2 and 1.50. Dehydration DVT (deep venous thrombosis) October 2020 - Left lower extremity GERD (gastroesophageal reflux disease) Hyperlipidemia Hypertension Hypertension Hypochromic microcytic anemia Right kidney mass T2DM (type 2 diabetes mellitus) Type 2 diabetes mellitus Venous thromboembolism Surgical History Surgical History (Updated 05/28/21 @ 15:46 by Lian Alexander) History of bilateral cataract extraction History of cholecystectomy (02/2018) History of colonoscopy with polypectomy (01/24/21) History of endoscopic retrograde cholangiopancreatography (02/2018) History of esophagogastroduodenoscopy (01/24/21) History of hysterectomy History of left mastectomy History of parathyroidectomy (09/13/18) Left inferior parathyroidectomy for benign adenoma. History of tonsillectomy S/P cholecystectomy Family History Family History Sibling Diabetes mellitus Mother Diabetes mellitus Social History Social History (System 05/28/21 @ 15:46 by Lian Alexander) Social History: Surrogate decision maker: Uzair Martinez, son. Code status: Full code. Smoking packs per day: 1 Smoking cigarettes per day: 20.
[2022-11-06 14:00] VITALS: BP 146/91; PULSE 74; RESP 18; TEMP 36.7; O2SAT 99
== END 2022-11-06 14:40 | disposition home or self-care (01) ==
PROVIDERS: Emergency Provider Nurse Practitioner; PCP Internal Medicine
DX: N39.0 Urinary tract infection, site not specified (principal); J06.9 Acute upper respiratory infection, unspecified; H61.23 Impacted cerumen, bilateral; Z87.891 Personal history of nicotine dependence; K22.70 Barrett's esophagus without dysplasia; I12.9 Hypertensive chronic kidney disease with stage 1 through stage 4 chronic kidney disease, or unspecified chronic kidney disease; E11.22 Type 2 diabetes mellitus with diabetic chronic kidney disease; N18.30 Chronic kidney disease, stage 3 unspecified; Z79.84 Long term (current) use of oral hypoglycemic drugs; K21.9 Gastro-esophageal reflux disease without esophagitis; Z85.528 Personal history of other malignant neoplasm of kidney; Z86.718 Personal history of other venous thrombosis and embolism; Z79.01 Long term (current) use of anticoagulants; Z98.42 Cataract extraction status, left eye; Z98.41 Cataract extraction status, right eye; Z90.12 Acquired absence of left breast and nipple; Z90.89 Acquired absence of other organs
CPT/HCPCS: 81003; 87077; 87086; 87186; 99213; G0463

== ENCOUNTER 2023-02-23 16:47 | Observation (INO) | payer MEDICARE, SELFPAY ==
[2023-02-23] VITALS (14 sets, daily range): BP systolic 113–164; BP diastolic 67–93; PULSE 74–87; RESP 15–25; TEMP 36.4–37.2; O2SAT 94–98; BMI 22.1
--- NOTE | ~2023-02-23 | CT_ITS ---
EXAMINATION: CT abdomen pelvis wo con DATE: 02/23/2023 19:33 INDICATION: flank pain TECHNIQUE: Computed tomography (CT) of the abdomen and pelvis was performed without intravenous contr ast. Automated exposure control and iterative reconstruction technique were employed. The dose-length product was 297.34 mGy-cm. COMPARISON: 02/13/2022. FINDINGS: Lower thorax: Senescent change. Bibasilar scar. Coronary artery calcifications. Left hilar calcified nodes. Left lower lobe calcified granuloma. Right middle lobe pneumatocele and bronchiectasis. Liver: Normal. Biliary/Gallbladder: Gallbladder is absent. No bile duct dilation. Pneumobilia. Pancreas: Severe pancreatic atrophy. Severe but stable pancreatic duct dilation. Stable 3 cm cystic p ancreatic head lesion. Spleen: Normal. Adrenals:No mass. Kidneys: Bilateral cortical scarring and thinning. Multiple bilateral hyperdense masses, likely hemor rhagic or proteinaceous cysts. Left lower pole angiomyolipoma. GI tract: Large hiatal hernia, containing majority of the stomach. No small or large bowel dilation. Normal appendix. Diverticulosis without diverticulitis. Mesentery/Peritoneum: No ascites, mass, or free air. Retroperitoneum: No mass. Atherosclerotic abdominal aortic and/or arterial calcifications. Pelvis: Pelvic organs are within normal limits. Soft Tissues: Soft tissues and body wall unremarkable. Bones: No acute osseous finding. Stable moderate burst fracture at T11. Stable grade 1 anterolisthes is at L4-5. IMPRESSION: No acute abdominopelvic process detected. Redemonstration of a 3 cm cystic mass in the pancreatic head, prior recommendation for endoscopic ult rasound with fine-needle aspiration and surgical consultation is unchanged. Reviewed, dictated and finalized at location K. IMPRESSION: No acute abdominopelvic process detected. Redemonstration of a 3 cm cystic mass in the pancreatic head, prior recommendat ion for endoscopic ultrasound with fine-needle aspiration and surgical consulta tion is unchanged.
--- NOTE | ~2023-02-23 | CT_ITS ---
EXAMINATION: CT brain wo con DATE: 02/25/2023 14:41 INDICATION: headache, AMS . TECHNIQUE: Computed tomography (CT) of the head was performed without intravenous contrast. The mA wa s adjusted according to patient size. Iterative reconstruction technique was employed. The dose-lengt h product was 605.33 mGy-cm. COMPARISON: None. FINDINGS: No acute intracranial hemorrhage or extra-axial fluid collection. No hydrocephalus, mass, or herniation. No acute ischemic infarct. Unremarkable dural venous sinus attenuation. No acute osseous abnormality. The aerated spaces are clear. Moderate atrophy and mild chronic white matter change. Atherosclerotic intracranial calcification. Bi lateral lens replacements. IMPRESSION: No acute intracranial process. Reviewed, dictated and finalized at location K.
--- NOTE | 2023-02-23 16:56 | ECG_ITS ---
Measurements Intervals [place]is Rate: 80 P: -20 IN: 172 QRS: -58 QRSD: 87 T: 8 QT: 329 QTc: 381 Interpretive Statements SINUS RHYTHM MARKED LEFT AXIS DEVIATION [QRS AXIS < -30] ANTEROSEPTAL MYOCARDIAL INFARCTION , OF INDETERMINATE AGE [40+ ms Q WAVE IN V1-V4] COMPARED TO ECG 05/18/2021 13:03:29 NO SIGNIFICANT CHANGES Electronically Signed On 02-24-2023 13:26:05 CDT by Nickolas Lyman M.D.
[2023-02-23 17:21] LABS: Basophils Percent Auto 0.3 % (0.2-1.2); Eosinophils Percent Auto 0.5 % (0-4.4); Hematocrit 40.3 % (37.0-47.0); Hemoglobin 13.1 g/dL (12.0-15.0); Immature Granulocyte Absolute 0.05 K/mm3 (0.00-0.031); Immature Granulocyte Percent A 0.6 % (0-0.5); Lymphocytes Absolute Auto 0.66 K/mm3 (0.9-3.2); Lymphocytes Percent Auto 7.4 % (18.3-44.2); Mean Corpuscular HGB Conc 32.5 g/dl (32-36); Mean Corpuscular Hemoglobin 32.3 pg (26-34); Mean Corpuscular Volume 99.3 fl (80-100); Mean Platelet Volume 10.1 fl (7.4-10.4); Monocytes Absolute Auto 0.6 K/mm3 (0.1-0.6); Monocytes Percent Auto 7.2 % (2.6-8.5); Neutrophils Absolute Auto 7.4 K/mm3 (1.3-6.7); Platelet Count Result 169 k/mm3 (150-375); Red Blood Count 4.06 M/mm3 (4.2-5.4); Red Cell Distribution Width 14.4 % (11.5-14.5); White Blood Count 8.9 K/mm3 (4.5-10.0)
[2023-02-23 17:31] LABS: Alanine Aminotransferase 24 U/L (6-35); Albumin Level 4.5 g/dL (3.5-5.1); Alkaline Phosphatase 64 U/L (38-126); Anion Gap 10 mmol/L (8-16); Aspartate Amino Transferase 25 U/L (14-36); Bilirubin,Total 1.1 mg/dL (0.2-1.3); Blood Urea Nitrogen 46 mg/dL (7-17); Calcium 9.6 mg/dL (8.4-10.2); Carbon Dioxide 26 mmol/L (22-30); Chloride 99 mmol/L (98-107); Estimated CRCL calculation 18 ml/min; Estimated Glomerular Filt Rate 27; Glucose 205 mg/dL (65-110); Potassium 3.7 mmol/L (3.4-5.0); Sodium 135 mmol/L (137-145)
[2023-02-23 18:19] LABS: Appearance Urine Cloudy (Clear); Bacteria Urine 4+ /hpf; Bilirubin Urine Negative (Negative); Blood Urine 1+ (Negative); Color Urine Yellow (Yellow); Glucose Urine UA Negative (Negative); Hyaline Casts Urine Present /lpf; Ketones Urine Negative (Negative); Leukocyte Esterase Ur 2+ LEU/UL (Negative); Nitrate Urine Negative (Negative); Protein Urine Negative (Negative); RBC Urine 0-2 /hpf (0-2); Specific Grav Ur 1.012 (1.001-1.035); Squamous Epithelial Cell Urine Few /hpf (Few); Urobilinogen Urine 0.2 mg/dL (<2.0)
[2023-02-23 18:21] LABS: Add Urine Microscopic? YES
--- NOTE | 2023-02-23 19:30 | PC.NURSE ---
This RN assumed care of patient.
--- NOTE | 2023-02-23 21:14 | ED.GENADULT ---
HPI - General Adult General Chief complaint: Weakness Stated complaint: weakness, near syncope Time Seen by Provider: 02/23/23 17:55 History of Present Illness HPI narrative: 82-year-old female presented to the emergency department for evaluation of increased lethargy and somnolence today along with lower back pain. Daughter states that the patient has had symptoms like this previously and it was attributed to a urinary tract infection. Patient reports that she was tired because she did not sleep well, daughter states that the patient did in fact sleep the majority of the night but just woke up still feeling tired. Daughter went to check on the patient today and she was very somnolent was difficult to wake up. Patient denies any falls or injuries. Patient is improved and has no significant plaints at this time. Patient is resting comfortably in the bed. Related Data Home Medications Medication Instructions Recorded Confirmed atorvastatin 40 mg tablet 40 mg PO HS 01/22/21 11/06/22 calcitriol 0.25 mcg capsule 0.25 mcg PO HS 01/22/21 11/06/22 furosemide 20 mg tablet 20 mg PO DAILY 01/22/21 11/06/22 glipizide 10 mg tablet 10 mg PO BID 01/22/21 11/06/22 omeprazole 20 mg capsule,delayed 20 mg PO DAILY 01/22/21 11/06/22 release allopurinol 100 mg tablet 100 mg PO DAILY 05/18/21 11/06/22 cranberry fruit concentrate 250 mg 250 mg PO BID 10/14/21 11/06/22 chewable tablet (Azo Cranberry) metoprolol tartrate 25 mg tablet 25 mg PO BID 10/14/21 11/06/22 midodrine 2.5 mg tablet 2.5 mg PO BID 10/14/21 11/06/22 famotidine 40 mg tablet 40 mg PO DAILY 11/06/22 11/06/22 semaglutide 7 mg tablet (Rybelsus) 7 mg PO DAILY 11/06/22 11/06/22 Allergies Allergy/AdvReac Type Severity Reaction Status Date / Time Sulfa (Sulfonamide Allergy Unknown PATIENT Verified 11/06/22 13:56 Antibiotics) DOESN'T REMEMBER Review of Systems Review of Systems: All systems reviewed & are unremarkable except as noted in HPI and below PMFSH Past Medical History Medical History (Updated 02/23/23 @ 21:21 by David Busby MD) Abnormal CT scan, stomach Acute on chronic anemia Reed's esophagus Cancer of left breast Status post mastectomy and chemotherapy. Chronic anticoagulation Chronic kidney disease Chronic kidney disease, stage 3 Baseline creatinine ranges between 1.2 and 1.50. Dehydration DVT (deep venous thrombosis) October 2020 - Left lower extremity GERD (gastroesophageal reflux disease) Hyperlipidemia Hypertension Hypertension Hypochromic microcytic anemia Right kidney mass T2DM (type 2 diabetes mellitus) Type 2 diabetes mellitus Venous thromboembolism Surgical History Surgical History (Updated 05/28/21 @ 15:46 by Lian Alexander) History of bilateral cataract extraction History of cholecystectomy (02/2018) History of colonoscopy with polypectomy (01/24/21) History of endoscopic retrograde cholangiopancreatography (02/2018) History of esophagogastroduodenoscopy (01/24/21) History of hysterectomy History of left mastectomy History of parathyroidectomy (09/13/18) Left inferior parathyroidectomy for benign adenoma. History of tonsillectomy S/P cholecystectomy Family History Family History Sibling Diabetes mellitus Mother Diabetes mellitus Social History Social History (System 05/28/21 @ 15:46 by Lian Alexander) Social History: Surrogate decision maker: Uzair Martinez, son. Code status: Full code. Smoking packs per day: 1 Smoking cigarettes per day: 20.0 Years smoked: 20 Smoking pack-years: 20.00 Smoking status: Former smoker Tobacco type: cigarettes Alcohol intake: never Substance use: never Substance use type: does not use Living arrangements: with family Additional living arrangements comments: Resides in [place]. Her in spring 2020 and since that time her daughter has been staying with her. They h
[2023-02-23] MEDS: SODIUM CHLORIDE 0.9% IV 1,000 ML 500 ML IV CONT (21:55)
--- NOTE | 2023-02-23 23:13 | ADMGEN ---
This patient, Sandee Martinez, was admitted to Medical Room 341-01. Patient/family oriented to hospital policies and general routines including ID bracelet, bed and alarms, visiting hours, pain management, procedures, bathroom and other care routines, personal items, smoking policy, room service/diet, and visiting hours. Information on how to activate the Rapid Response Team has been discussed. Patient/Family are encouraged to report perceived risks to care and to ask questions if they do not understand what they are told or what they should do.
[2023-02-24] MEDS: SODIUM CHLORIDE 0.9% IV 1,000 ML 100 ML IV CONT
[2023-02-24 06:09] VITALS: BP 121/65; PULSE 92; RESP 18; TEMP 36.9; O2SAT 95
--- NOTE | 2023-02-24 06:14 | PM.IMHP ---
H&P: HPI History of Present Illness Date/Time: 02/24/23 06:14 Chief Complaint: Not acting normal Narrative: 82-year-old female with a past medical history of chronic kidney disease, hypertension and diabetes who presented to the ER from home with family due to being more sleepy, weak and just not acting like herself. The daughter reported to the ER staff that this is how the patient neck is when she has had UTIs in the past. She wanted her brought in for evaluation. The patient's is awake and alert when I came into the room. She did know that she was at [facility] and the month. She thought the year was 2002. She has no real specific complaints except for that she felt tired on the . Hand she did not think she was tired in the day she came to the ER. She denies any dysuria, urinary frequency or urgency. She states that she would not know if her urine smelled foul because she has not had a sense of smell in years. She denies any areas of pain. She denies any respiratory symptoms. She reports a chronically low appetite. She denies any nausea or vomiting. She denies any respiratory symptoms. She has not had any diarrhea. She does have a history of constipation but is not real clear on when she had her last bowel movement. Her abdomen is soft and nontender. She denies any rhinorrhea but has some dried mucus noted to her posterior oropharynx. Review of Systems Review of Systems: 12 systems were reviewed with pertinent positives and negatives per HPI. Except as documented in the HPI, all other systems were reviewed and are negative. 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 Chronic anticoagulation Chronic kidney disease, stage 3 Baseline creatinine ranges between 1.5-1.8 DVT (deep venous thrombosis) October 2020 - Left lower extremity GERD (gastroesophageal reflux disease) Hyperlipidemia Hypertension Hypochromic microcytic anemia Right kidney mass T2DM (type 2 diabetes mellitus) Type 2 diabetes mellitus Surgical History Surgical History History of bilateral cataract extraction History of cholecystectomy (02/2018) History of colonoscopy with polypectomy (01/24/21) History of endoscopic retrograde cholangiopancreatography (02/2018) History of esophagogastroduodenoscopy (01/24/21) History of hysterectomy History of left mastectomy History of parathyroidectomy (09/13/18) Left inferior parathyroidectomy for benign adenoma. History of tonsillectomy S/P cholecystectomy Family History Family History Sibling Diabetes mellitus Mother Diabetes mellitus Social History Social History Social History: Surrogate decision maker: Uzair Martinez, cherry. Code status: Full code. Smoking packs per day: 1 Smoking cigarettes per day: 20.0 Years smoked: 20 Smoking pack-years: 20.00 Smoking status: Former smoker Tobacco type: cigarettes Alcohol intake: never Substance use: never Substance use type: does not use Lack of Transportation: No Lack of Food: Never True Current Housing: I Have Housing Concerned About Future Housing: No Difficulty Paying Gas/Electric Bills: No Difficulty Paying for Meds: YES Currently Unemployed: No Education: High School Diploma/GED Difficulty w/ Childcare or Family Care: No Living arrangements: with family Additional living arrangements comments: Resides in [place]. Her in spring 2020 and since that time her daughter has been staying with her. They had a total 4 children. Additional occupation/education comments: Retired. Gender identity (if verbalized by the patient): Female Spiritual care concerns: No Meds Home
[2023-02-24 07:02] LABS: Hemoglobin 12.3 g/dL (12.0-15.0); Mean Corpuscular HGB Conc 32.4 g/dl (32-36); Mean Corpuscular Hemoglobin 32.3 pg (26-34); Mean Corpuscular Volume 99.7 fl (80-100); Platelet Count Result 146 k/mm3 (150-375); Red Blood Count 3.81 M/mm3 (4.2-5.4); Red Cell Distribution Width 14.2 % (11.5-14.5); White Blood Count 4.7 K/mm3 (4.5-10.0)
[2023-02-24 07:11] LABS: Anion Gap 9 mmol/L (8-16); Blood Urea Nitrogen 40 mg/dL (7-17); Calcium 9.2 mg/dL (8.4-10.2); Carbon Dioxide 25 mmol/L (22-30); Chloride 102 mmol/L (98-107); Estimated CRCL calculation 20 ml/min; Estimated Glomerular Filt Rate 31; Glucose 89 mg/dL (65-110); Potassium 3.4 mmol/L (3.4-5.0); Sodium 136 mmol/L (137-145)
[2023-02-24] MEDS: MIDODRINE HCL 2.5 MG TABLET PO ×2 (07:54→16:43)
[2023-02-24] MEDS: FERROUS GLUCONATE 324 MG TABLET PO (07:54)
[2023-02-24] MEDS: glipiZIDE 5 MG TABLET 10 MG PO ×2 (07:54→16:43)
[2023-02-24] MEDS: FAMOTIDINE 20 MG TABLET 40 MG PO (07:54)
[2023-02-24] MEDS: allopurinoL 100 MG TABLET PO (07:54)
[2023-02-24 07:55] VITALS: PULSE 70
[2023-02-24] MEDS: METOPROLOL TARTRATE 12.5 MG TABLET PO ×2 (07:55→21:15)
[2023-02-24] MEDS: PANTOPRAZOLE 40 MG TABLET PO ×2 (07:55→16:43)
[2023-02-24 08:00] VITALS: O2SAT 95
[2023-02-24 08:54] LABS: Glucose Point of Care 86 mg/dl (65-105)
[2023-02-24 11:11] VITALS: BMI 22.1
[2023-02-24 12:17] LABS: Glucose Point of Care 222 mg/dl (65-105)
[2023-02-24] MEDS: INSULIN ASPART (*BKC) 100 UNITS/ML SUB-Q ×2 (12:23→21:16)
--- NOTE | 2023-02-24 12:55 | PCPTNOTE ---
On 02/24/23, the student, [Roselyn Moser], provided care and completed [facility] documentation on this patient. I have reviewed the student's documentation and agree with the findings.
[2023-02-24 14:00] VITALS: BP 114/59; PULSE 67; RESP 18; TEMP 36.8; O2SAT 93
--- NOTE | 2023-02-24 15:30 | PM.IMPN ---
Progress Note: A&P Assessment and Plan (1) Urinary tract infection: Qualifiers: Hematuria presence: with hematuria Urinary tract infection type: acute cystitis Qualified Code(s): N30.01 - Acute cystitis with hematuria Code(s): N39.0 - Urinary tract infection, site not specified Status: Acute Assessment and Plan: Patient is complaining of nonspecific symptoms but urine does seem suggestive of UTI and she has had change in activity level and energy. She possibly has a UTI. Urine cultures are pending. Patient has been started empiric antibiotic therapy with Rocephin. Adjust antibiotics to culture results (2) Chronic kidney disease, stage 3: Qualifiers: Chronic kidney disease stage 3 subtype: stage 3b (GFR 30-44) Qualified Code(s): N18.32 - Chronic kidney disease, stage 3b Code(s): N18.30 - Chronic kidney disease, stage 3 unspecified Status: Acute Assessment and Plan: On labs the patient's creatinine is stable but BUN has almost doubled. Patient likely has some element of volume depletion. Will hold the patient's home Lasix and give the patient maintenance IV fluids. Will repeat BMP in a.m. and monitor I&O's closely. (3) Generalized weakness: Code(s): R53.1 - Weakness Status: Acute Assessment and Plan: Likely due to underlying UTI. 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 Will place patient on Accu-Cheks a.c. HS and hypoglycemia protocol. Will continue patient's home oral hypoglycemic agents. Subjective Date/time seen: 02/24/23 15:30 Interval history: Patient feeling much better today. Waiting on urine culture results and sensitivities to return. Patient is alert oriented x4. No complaints of nausea, vomiting abdominal pain, of dysuria, chest pain and shortness of breath. Exam Narrative: GENERAL: Comfortable, no acute distress HENMT: moist mucous membranes EYES: EOM intact b/l NECK: no lymphadenopathy RESPIRATORY: clear to auscultation CARDIO: RRR GI: soft, nontender, bowel sounds present SKIN: no rashes EXTREMITIES: no edema, redness or tenderness Objective Data Vital Signs Vital Signs: Vital Signs - 24 hr 02/23/23 16:51 02/23/23 17:54 02/23/23 17:55 Temperature 97.5 F L Pulse Rate 79 75 74 Respiratory Rate 16 23 H Blood Pressure 132/70 145/83 H Pulse Oximetry 98 96 Oxygen Delivery Room Air 02/23/23 18:01 02/23/23 18:30 02/23/23 18:45 Temperature Pulse Rate 78 78 78 Respiratory Rate 19 25 H 25 H Blood Pressure 146/71 H 113/68 114/67 Pulse Oximetry 94 98 Oxygen Delivery 02/23/23 19:00 02/23/23 20:16 02/23/23 20:31 Temperature Pulse Rate 78 87 80 Respiratory Rate 19 15 17 Blood Pressure 125/82 135/78 124/76 Pulse Oximetry 98 Oxygen Delivery 02/23/23 20:46 02/23/23 20:52 02/23/23 21:01 Temperature Pulse Rate 81 82 Respiratory Rate 18 18 Blood Pressure 146/72 H 164/93 H 150/89 H Pulse Oximetry 96 Oxygen Delivery 02/23/23 21:16 02/23/23 23:26 02/23/23 23:12 Temperature 98.9 F Pulse Rate 82 79 Respiratory Rate 19 18 Blood Pressure 143/77 H 145/70 H Pulse Oximetry 94 Oxygen Delivery Room Air 02/24/23 06:09 02/24/23 07:55 02/24/23 08:00 Temperature 98.4 F Pulse Rate 92 70 Respiratory Rate 18 Blood Pressure 121/65 Pulse Oximetry 95 95 Oxygen Delivery Room Air 02/24/23 10:02 02/24/23 14:00 Temperature 98.3 F Pulse Rate 67 Respiratory Rate 18 Blood Pressure 114/59 L Pulse Oximet
[2023-02-24] MEDS: SODIUM CHLORIDE 0.9% IV 1,000 ML 70 ML IV CONT (16:43)
[2023-02-24 17:03] LABS: Glucose Point of Care 137 mg/dl (65-105)
[2023-02-24 20:29] VITALS: BP 121/73; PULSE 84; RESP 20; TEMP 36.5; O2SAT 95
[2023-02-24 21:15] VITALS: PULSE 84
[2023-02-24] MEDS: calcitrioL 0.25 MCG CAPSULE PO (21:15)
[2023-02-24] MEDS: ATORVASTATIN 40 MG TABLET PO (21:15)
[2023-02-24 22:01] LABS: Glucose Point of Care 295 mg/dl (65-105)
[2023-02-25] VITALS (7 sets, daily range): BP systolic 115–125; BP diastolic 60–71; PULSE 62–75; RESP 16–20; TEMP 36.3–36.6; O2SAT 94–96
[2023-02-25 05:57] LABS: Basophils Percent Auto 0.2 % (0.2-1.2); Eosinophils Absolute Auto 0.2 K/mm3 (0-0.3); Eosinophils Percent Auto 3.5 % (0-4.4); Hematocrit 35.7 % (37.0-47.0); Hemoglobin 11.6 g/dL (12.0-15.0); Immature Granulocyte Absolute 0.02 K/mm3 (0.00-0.031); Immature Granulocyte Percent A 0.5 % (0-0.5); Lymphocytes Absolute Auto 1.36 K/mm3 (0.9-3.2); Lymphocytes Percent Auto 31.8 % (18.3-44.2); Mean Corpuscular HGB Conc 32.5 g/dl (32-36); Mean Corpuscular Volume 98.3 fl (80-100); Mean Platelet Volume 10.2 fl (7.4-10.4); Monocytes Absolute Auto 0.6 K/mm3 (0.1-0.6); Monocytes Percent Auto 14.5 % (2.6-8.5); Neutrophils Absolute Auto 2.1 K/mm3 (1.3-6.7); Neutrophils Percent Auto 49.5 % (45.5-73.1); Platelet Count Result 139 k/mm3 (150-375); Red Blood Count 3.63 M/mm3 (4.2-5.4); Red Cell Distribution Width 13.9 % (11.5-14.5); White Blood Count 4.3 K/mm3 (4.5-10.0)
[2023-02-25 06:11] LABS: Alanine Aminotransferase 23 U/L (6-35); Albumin Level 3.5 g/dL (3.5-5.1); Alkaline Phosphatase 59 U/L (38-126); Anion Gap 8 mmol/L (8-16); Aspartate Amino Transferase 27 U/L (14-36); Bilirubin,Total 0.4 mg/dL (0.2-1.3); Blood Urea Nitrogen 40 mg/dL (7-17); Carbon Dioxide 22 mmol/L (22-30); Chloride 107 mmol/L (98-107); Estimated CRCL calculation 24 ml/min; Estimated Glomerular Filt Rate 39; Glucose 100 mg/dL (65-110); Potassium 3.8 mmol/L (3.4-5.0); Sodium 137 mmol/L (137-145)
[2023-02-25] MEDS: FAMOTIDINE 20 MG TABLET 40 MG PO (07:51)
[2023-02-25] MEDS: MIDODRINE HCL 2.5 MG TABLET PO ×2 (07:51→16:56)
[2023-02-25] MEDS: PANTOPRAZOLE 40 MG TABLET PO ×2 (07:51→16:55)
[2023-02-25] MEDS: FERROUS GLUCONATE 324 MG TABLET PO (07:51)
[2023-02-25] MEDS: glipiZIDE 5 MG TABLET 10 MG PO (07:51)
[2023-02-25] MEDS: allopurinoL 100 MG TABLET PO (07:51)
[2023-02-25] MEDS: METOPROLOL TARTRATE 12.5 MG TABLET PO ×2 (07:52→20:43)
[2023-02-25 08:38] LABS: Glucose Point of Care 101 mg/dl (65-105)
[2023-02-25] MEDS: ACETAMINOPHEN 325 MG TABLET 650 MG PO ×2 (09:45→15:25)
--- NOTE | 2023-02-25 11:46 | PC.NURSE ---
Katelyn Torres on floor and notified of pt still c/o headache after tylenol given.
[2023-02-25 12:33] LABS: Glucose Point of Care 313 mg/dl (65-105)
[2023-02-25] MEDS: INSULIN ASPART (*BKC) 100 UNITS/ML SUB-Q ×2 (12:38→17:18)
--- NOTE | 2023-02-25 13:30 | PCOTNOTE ---
Attempted to see pt. for occupational therapy evaluation. Pt. currently experiencing acute onset of headache and nausea, and having difficulty keeping eyes open due to pain. Pt. agreeable to participate, but will wait due to safety concerns until nurse able to address onset of symptoms. Following.
--- NOTE | 2023-02-25 13:32 | PC.NURSE ---
Katelyn Torres notified of pt still c/o headache and now nausea.
[2023-02-25] MEDS: ONDANSETRON INJ 4 MG/2 ML VIAL IV PUSH (13:35)
[2023-02-25] MEDS: KETOROLAC 15 MG/ML VIAL (*BKC) IV PUSH (13:57)
--- NOTE | 2023-02-25 14:49 | PM.IMPN ---
Progress Note: A&P Assessment and Plan (1) Urinary tract infection: Qualifiers: Hematuria presence: with hematuria Urinary tract infection type: acute cystitis Qualified Code(s): N30.01 - Acute cystitis with hematuria Code(s): N39.0 - Urinary tract infection, site not specified Status: Acute Assessment and Plan: - Urine culture growing klebsiella pneumonia. Has already received 3 days of IV antibiotics, will transition to Augmentin and complete a 7 day course. -Cr on admission 1.80-->1.60-->1.30 today. Receiving IV fluids as her intake is poor. (2) Chronic kidney disease, stage 3: Qualifiers: Chronic kidney disease stage 3 subtype: stage 3b (GFR 30-44) Qualified Code(s): N18.32 - Chronic kidney disease, stage 3b Code(s): N18.30 - Chronic kidney disease, stage 3 unspecified Status: Acute Assessment and Plan: Baseline Cr seems to range 1.3-1.4 Continue daily labs (3) Generalized weakness: Code(s): R53.1 - Weakness Status: Acute Assessment and Plan: -PT/OT consulted -Try to keep up and out of bed during the daytime hours. (4) T2DM (type 2 diabetes mellitus): Qualifiers: Diabetes mellitus complication status: without complication Diabetes mellitus intermission coordinator insulin use: without fdc use Qualified Code(s): E11.9 - Type 2 diabetes mellitus without complications Code(s): E11.9 - Type 2 diabetes mellitus without complications Status: Acute Assessment and Plan: -DM II on glipizide 10 mg PO BID at home. Stopping while in the hospital due to risk of hypoglycemia. -Accu checks AC/HS with sliding scale insulin. Blood glucose has been running 130's-313. Can increase sliding scale. -check a1c (5) Headache: Qualifiers: Headache chronicity pattern: acute headache Headache type: unspecified Intractability: not intractable Qualified Code(s): R51.9 - Headache, unspecified Code(s): R51.9 - Headache, unspecified Status: Acute Assessment and Plan: -Gave Tylenol with no effect. Added IV Toradol x 1 dose and then low dose Ibuprofen 400 mg prn. -Given headache and the fact that patient came in with AMS, will obtain CT head w/o contrast. Subjective Date/time seen: 02/25/23 14:49 Interval history: 82-year-old female with a past medical history of? chronic kidney disease, hypertension and diabetes who presented to the ER from home with family due to being more sleepy, weak and just not acting like herself.? The daughter reported to the ER staff that this is how the patient neck is when she has had UTIs in the past.? She wanted her brought in for evaluation.? The patient's is awake and alert when I came into the room.? She did know that she was at [facility] and the month.? She thought the year was 2002.? She has no real specific complaints except for that she felt tired on the .? Hand she did not think she was tired in the day she came to the ER.? She denies any dysuria, urinary frequency or urgency.? She states that she would not know if her urine smelled foul because she has not had a sense of smell in years.? She denies any areas of pain.? She denies any respiratory symptoms.? She reports a chronically low appetite.? She denies any nausea or vomiting.? She denies any respiratory symptoms.? She has not had any diarrhea.? She does have a history of constipation but is not real clear on when she had her last bowel movement.? Her abdomen is soft and nontender.? She denies any rhinorrhea but has some dried mucus noted to her posterior oropharynx. Interval history: 02/25: Mrs. Tyson is not feeling well today. She is having a headache and her eyes hurt . Otherwise she is still having generalized fatigue. She is alert. She knows she is in the hospital, not sure of the town, knows the month, but thinks it's 2002. She has diminished appetite and is voiding appropriately. She denies dysuria
[2023-02-25] MEDS: SODIUM CHLORIDE 0.9% IV 1,000 ML 70 ML IV CONT (15:27)
[2023-02-25] MEDS: IBUPROFEN 400 MG TABLET PO (16:57)
[2023-02-25 17:07] LABS: Glucose Point of Care 182 mg/dl (65-105)
[2023-02-25] MEDS: ATORVASTATIN 40 MG TABLET PO (20:43)
[2023-02-25] MEDS: AMOXICILLIN/CLAVULANATE K 500-125 MG TAB 1 TABLET PO (20:43)
[2023-02-25] MEDS: calcitrioL 0.25 MCG CAPSULE PO (20:43)
[2023-02-25 21:39] LABS: Glucose Point of Care 109 mg/dl (65-105)
[2023-02-26 05:13] VITALS: BP 120/78; PULSE 60; RESP 18; TEMP 36.3; O2SAT 98
[2023-02-26 06:17] LABS: Basophils Percent Auto 0.6 % (0.2-1.2); Eosinophils Absolute Auto 0.3 K/mm3 (0-0.3); Eosinophils Percent Auto 5.1 % (0-4.4); Hematocrit 35.4 % (37.0-47.0); Hemoglobin 11.4 g/dL (12.0-15.0); Immature Granulocyte Absolute 0.02 K/mm3 (0.00-0.031); Immature Granulocyte Percent A 0.4 % (0-0.5); Immature Platelet Fraction Pct 2.7 % (0.9-11.2); Lymphocytes Absolute Auto 1.49 K/mm3 (0.9-3.2); Lymphocytes Percent Auto 30.2 % (18.3-44.2); Mean Corpuscular HGB Conc 32.2 g/dl (32-36); Mean Corpuscular Hemoglobin 31.9 pg (26-34); Mean Corpuscular Volume 99.2 fl (80-100); Mean Platelet Volume 10.2 fl (7.4-10.4); Monocytes Absolute Auto 0.6 K/mm3 (0.1-0.6); Monocytes Percent Auto 11.9 % (2.6-8.5); Neutrophils Absolute Auto 2.6 K/mm3 (1.3-6.7); Neutrophils Percent Auto 51.8 % (45.5-73.1); Platelet Count Result 148 k/mm3 (150-375); Red Blood Count 3.57 M/mm3 (4.2-5.4); Red Cell Distribution Width 13.9 % (11.5-14.5); White Blood Count 4.9 K/mm3 (4.5-10.0)
[2023-02-26 06:27] LABS: Anion Gap 3 mmol/L (8-16); Blood Urea Nitrogen 35 mg/dL (7-17); Calcium 9.1 mg/dL (8.4-10.2); Carbon Dioxide 28 mmol/L (22-30); Chloride 108 mmol/L (98-107); Estimated CRCL calculation 21 ml/min; Estimated Glomerular Filt Rate 33; Glucose 88 mg/dL (65-110); Magnesium 1.6 mg/dL (1.6-2.3); Potassium 4.5 mmol/L (3.4-5.0); Sodium 139 mmol/L (137-145)
[2023-02-26 08:36] LABS: Glucose Point of Care 104 mg/dl (65-105)
[2023-02-26] MEDS: SODIUM CHLORIDE 0.9% IV 1,000 ML 70 ML IV CONT (09:04)
[2023-02-26] MEDS: MIDODRINE HCL 2.5 MG TABLET PO (09:05)
[2023-02-26] MEDS: AMOXICILLIN/CLAVULANATE K 500-125 MG TAB 1 TABLET PO (09:05)
[2023-02-26] MEDS: allopurinoL 100 MG TABLET PO (09:05)
[2023-02-26] MEDS: FAMOTIDINE 20 MG TABLET 40 MG PO (09:05)
[2023-02-26] MEDS: PANTOPRAZOLE 40 MG TABLET PO (09:05)
[2023-02-26 09:06] VITALS: PULSE 66
[2023-02-26] MEDS: FERROUS GLUCONATE 324 MG TABLET PO (09:06)
[2023-02-26] MEDS: METOPROLOL TARTRATE 12.5 MG TABLET PO (09:06)
--- NOTE | 2023-02-26 10:43 | PM.DS ---
DS: Admitting Diagnosis Discharge Date , 02/26 Admitting Diagnosis UTI, weakness DS: Discharge Diagnosis Discharge Diagnosis (1) Urinary tract infection: Qualifiers: Hematuria presence: with hematuria Urinary tract infection type: acute cystitis Qualified Code(s): N30.01 - Acute cystitis with hematuria Code(s): N39.0 - Urinary tract infection, site not specified Status: Acute Assessment and Plan: - Urine culture growing klebsiella pneumonia. Has already received 3 days of IV antibiotics, will transition to Augmentin and complete a 7 day course. -Cr on admission 1.80-->1.60-->1.30 today. Receiving IV fluids as her intake is poor. (2) Chronic kidney disease, stage 3: Qualifiers: Chronic kidney disease stage 3 subtype: stage 3b (GFR 30-44) Qualified Code(s): N18.32 - Chronic kidney disease, stage 3b Code(s): N18.30 - Chronic kidney disease, stage 3 unspecified Status: Acute Assessment and Plan: Baseline Cr seems to range 1.3-1.4 Continue daily labs (3) Generalized weakness: Code(s): R53.1 - Weakness Status: Acute Assessment and Plan: -PT/OT consulted -Try to keep up and out of bed during the daytime hours. (4) T2DM (type 2 diabetes mellitus): Qualifiers: Diabetes mellitus complication status: without complication Diabetes mellitus care home insulin use: without care home use Qualified Code(s): E11.9 - Type 2 diabetes mellitus without complications Code(s): E11.9 - Type 2 diabetes mellitus without complications Status: Acute Assessment and Plan: -DM II on glipizide 10 mg PO BID at home. Stopping while in the hospital due to risk of hypoglycemia. -Accu checks AC/HS with sliding scale insulin. Blood glucose has been running 130's-313. Can increase sliding scale. -check a1c (5) Headache: Qualifiers: Headache chronicity pattern: acute headache Headache type: unspecified Intractability: not intractable Qualified Code(s): R51.9 - Headache, unspecified Code(s): R51.9 - Headache, unspecified Status: Acute Assessment and Plan: -Gave Tylenol with no effect. Added IV Toradol x 1 dose and then low dose Ibuprofen 400 mg prn. -Given headache and the fact that patient came in with AMS, will obtain CT head w/o contrast. Plan You were admitted with fatigue and weakness. You were found to have a urinary tract infection and your urine culture grew klebsiella pneumoniae. During your hospitalization you received 3 days of IV antibiotics and then you were transitioned to oral Augmentin. Your symptoms have improved and you are feeling better, eating and drinking appropriatley. You need to continue this for 3 more days. You last day of antibiotics will be on February 28. Thank you for letting us care for you and for choosing [facility]. Take all medications as prescribed even if feeling better Eat well balanced meals and stay hydrated Keep active to remain strong Avoid use of diapers or pads Good elvia Care every 2 hours Trend urine output If you should experience any chest pain, shortness of breath, temps >100.4 or any other worrisome symptoms please follow up with your PCP come back to the hospital Follow up with your primary in 2-3 weeks It has been a pleasure taking care of you thank you for using our services DS: Summary Hospital Course Reason for hospitalization: UTI, fatigue, weakness Hospital Course: Interval history: 82-year-old female with a past medical history of? chronic kidney disease, hypertension and diabetes who presented to the ER from home with family due to being more sleepy, weak and just not acting like herself.? The daughter reported to the ER staff that this is how the patient neck is when she has had UTIs in the past.? She wanted her brought in for evaluation.? The patient's is awake and alert when I came into the room.? She did know
[2023-02-26 11:50] LABS: Glucose Point of Care 310 mg/dl (65-105)
[2023-02-26] MEDS: INSULIN ASPART (*BKC) 100 UNITS/ML SUB-Q (12:27)
== END 2023-02-26 12:39 | disposition home or self-care (01) ==
LOC: ANHED 21:48 → ANH3MED 22:31
PROVIDERS: Emergency Medicine; Internal Medicine Critical Care Medicine; Nurse Practitioner Acute Care; Admitting Provider Internal Medicine; Emergency Provider Emergency Medicine; PCP Internal Medicine; Visit Provider Chiropractor
DX: N30.01 Acute cystitis with hematuria (principal); B96.1 Klebsiella pneumoniae [K. pneumoniae] as the cause of diseases classified elsewhere; I12.9 Hypertensive chronic kidney disease with stage 1 through stage 4 chronic kidney disease, or unspecified chronic kidney disease; E11.22 Type 2 diabetes mellitus with diabetic chronic kidney disease; N18.32 Chronic kidney disease, stage 3b; R53.1 Weakness; R51.9 Headache, unspecified; D64.9 Anemia, unspecified; K21.9 Gastro-esophageal reflux disease without esophagitis; N17.9 Acute kidney failure, unspecified; E78.5 Hyperlipidemia, unspecified; R41.82 Altered mental status, unspecified; D72.829 Elevated white blood cell count, unspecified; Z79.84 Long term (current) use of oral hypoglycemic drugs; Z79.899 Other long term (current) drug therapy; Z86.718 Personal history of other venous thrombosis and embolism; Z87.891 Personal history of nicotine dependence
CPT/HCPCS: 36415; 70450; 74176; 80048; 80053; 81001; 82948; 83036; 83735; 85025; 85027; 85055; 87077; 87086; 87186; 93005; 96361; 96365; 96375; 97161; 97165; 99285; A9270; G0378; J0696; J1815; J1885; J2405; J7030

== ENCOUNTER 2024-08-26 13:57 | Inpatient (IN) | payer MEDICARE, SELFPAY ==
[2024-08-26] VITALS (11 sets, daily range): BP systolic 114–157; BP diastolic 62–84; PULSE 67–85; RESP 16–23; TEMP 36.4–36.9; O2SAT 90–96; BMI 23.8
--- NOTE | ~2024-08-26 | XR_ITS ---
XR chest 1V portable Ordering provider: Jewel Shafer MD History: 84 years Female with . sepsis . Comparison: May 18, 2021 FINDINGS: MEDIASTINUM: The cardiac silhouette is not enlarged. Sliding hiatus hernia. Congestive markell. LUNGS: No effusions or pneumothorax. Bibasilar opacification which may indicate atelectasis versus pn [place]. Elevation of the right hemidiaphragm seen. Bilateral interstitial thickening. Underlying fib rotic changes is not excluded. OTHER: No free air under the diaphragm. IMPRESSION: Bibasilar opacification which may indicate atelectasis versus pneumonia. Bilateral interstitial thickening which may indicate pneumonitis versus pulmonary edema. Clinical cor relation advised. Reviewed, dictated and finalized at location A. R ENERGY SYSTEMS DESIGNER IMPRESSION: Bibasilar opacification which may indicate atelectasis versus pneumonia. Bilateral interstitial thickening which may indicate pneumonitis versus pulmona ry edema. Clinical correlation advised.
--- NOTE | ~2024-08-26 | CT_ITS ---
CT brain wo con Ordering provider: Jess Mae MD History: 84 years Female with . AMS, hypoglycemia . Comparison: None. Technique: CT of the head without contrast. Radiation reduction technique utilized.The dose-length product was 1362 mGy-cm. FINDINGS: BRAIN PARENCHYMA AND CSF SPACES: Severe leukoaraiosis and diffuse cortical atrophy. Severe atheromato us disease. No midline shift, mass effect or hemorrhage. The brain parenchyma and CSF spaces are oth erwise normal. VISUALIZED PARANASAL SINUSES: Well aerated. MASTOIDS: Well aerated. BONES: The bones appear intact. SOFT TISSUES: Visualized nasopharynx is normal. Superficial soft tissues are normal. IMPRESSION: No acute intracranial findings. Reviewed, dictated and finalized at location A. EY DATA TECHNICIAN
--- NOTE | ~2024-08-26 | XR_ITS ---
MODIFIED ESOPHAGRAM HISTORY: Dysphagia. TECHNIQUE: Modified barium esophagram was performed on . I administered fluoroscopy and performed the exam with speech pathologist. Patient was seated for lateral fluoroscopic imaging for ingestion of thin liquids, pudding, solids and quantified amounts, followed by thin liquids in uncontrolled amount s. This was recorded on tape. A single fluoroscopic spot image was also recorded. The DAP for this pr ocedure was 2 Gycm2. The amount of fluoroscopy time used during this procedure was 4.0 minutes. FINDINGS: Oral stage: Adequate function. Pharyngeal stage: Single episode of flash laryngeal penetration without aspiration on the initial sip of thin liquid. Cervical/esophageal stage: Adequate function. IMPRESSION: Single episode of flash laryngeal penetration without aspiration. Please correlate with speech pathologist findings and specific feeding recommendations. Reviewed, dictated and finalized at location A. RAL SERVICE LICENSEE IMPRESSION: Single episode of flash laryngeal penetration without aspiration. Please correlate with speech pathologist findings and specific feeding recommen dations.
--- NOTE | ~2024-08-26 | US_ITS ---
EXAMINATION: US retroperitoneal comp DATE: 08/27/2024 11:59 INDICATION: Acute renal insufficiency TECHNIQUE: Multiple ultrasound grayscale images of the kidneys were obtained. COMPARISON: CT dated 02/23/2023 FINDINGS: The right kidney measures 8.8 x 4.2 x 4.9 cm. The left kidney measures 8.5 x 4.7 x 4.0 cm. The kidney s demonstrate normal echogenicity. Bilateral anechoic renal cysts measuring 1.4 cm the upper pole the right kidney and 1.5 cm at the mid left kidney. 1.2 cm echogenic lesion at the lower pole the left k idney corresponding to the macroscopic fat attenuation angiomyolipomas seen on prior CT. There is no hydronephrosis in either kidney. No stones identified. The bladder is normal. IMPRESSION: 1. No hydronephrosis. 2. 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 Reviewed, dictated and finalized at location A. [employer] IMPRESSION: 1. No hydronephrosis. 2. 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
[2024-08-26 14:07] LABS: Glucose Point of Care 34 mg/dl (65-105)
[2024-08-26] MEDS: DEXTROSE 50% 25 GM/50 ML SYRINGE (14:22)
[2024-08-26 14:27] LABS: Glucose Point of Care 180 mg/dl (65-105)
[2024-08-26 14:31] LABS: Basophils Percent Auto 0.3 % (0.2-1.2); Eosinophils Absolute Auto 0.1 K/mm3 (0-0.3); Eosinophils Percent Auto 1.3 % (0-4.4); Hematocrit 35.9 % (37.0-47.0); Hemoglobin 11.8 g/dL (12.0-15.0); Immature Granulocyte Absolute 0.06 K/mm3 (0.00-0.031); Immature Granulocyte Percent A 0.7 % (0-0.5); Lymphocytes Absolute Auto 1.82 K/mm3 (0.9-3.2); Lymphocytes Percent Auto 19.8 % (18.3-44.2); Mean Corpuscular HGB Conc 32.9 g/dl (32-36); Mean Corpuscular Hemoglobin 32.9 pg (26-34); Mean Platelet Volume 9.8 fl (7.4-10.4); Monocytes Absolute Auto 1.4 K/mm3 (0.1-0.6); Monocytes Percent Auto 14.7 % (2.6-8.5); Neutrophils Absolute Auto 5.8 K/mm3 (1.3-6.7); Neutrophils Percent Auto 63.2 % (45.5-73.1); Platelet Count Result 165 k/mm3 (150-375); Red Blood Count 3.59 M/mm3 (4.2-5.4); Red Cell Distribution Width 13.8 % (11.5-14.5); White Blood Count 9.2 K/mm3 (4.5-10.0)
[2024-08-26 14:45] LABS: Alanine Aminotransferase 22 U/L (6-35); Albumin Level 4.2 g/dL (3.5-5.1); Alkaline Phosphatase 63 U/L (38-126); Anion Gap 5 mmol/L (4-12); Aspartate Amino Transferase 36 U/L (14-36); Bilirubin,Total 0.5 mg/dL (0.2-1.3); Blood Urea Nitrogen 51 mg/dL (7-17); Calcium 9.5 mg/dL (8.4-10.2); Carbon Dioxide 27 mmol/L (22-30); Chloride 97 mmol/L (98-107); Estimated CRCL calculation 15 ml/min; Estimated Glomerular Filt Rate 22; Glucose 35 mg/dL (65-110); Potassium 3.8 mmol/L (3.4-5.0); Sodium 129 mmol/L (137-145)
--- NOTE | 2024-08-26 15:44 | ECG_ITS ---
Test Date: 2024-08-26 16:51:48 Measurements Intervals [place] Rate: 74 P: -9 [place]: 167 QRS: -62 QRSD: 106 T: 74 QT: 336 QTc: 375 Interpretive Statements SINUS RHYTHM LEFT AXIS DEVIATION [QRS AXIS < -30] ANTEROSEPTAL MYOCARDIAL INFARCTION , OF INDETERMINATE AGE [40+ ms Q WAVE IN V1-V4] ABNORMAL ECG Electronically Signed On 08-26-2024 17:28:58 EMAIL MARKETING ASSISTANT by Rayray Justice M.D.
[2024-08-26 15:49] LABS: Glucose Point of Care 134 mg/dl (65-105)
[2024-08-26] MEDS: SODIUM CHLORIDE 0.9% IV 1,000 ML 150 ML IV CONT (16:29)
--- NOTE | 2024-08-26 16:57 | PC.NURSE ---
when pt sleeps SPO2 dropped to 85%, 2l/NC applied, SPO2 now 93%
[2024-08-26 17:16] LABS: Add Urine Microscopic? NO; Appearance Urine Clear (Clear); Bilirubin Urine Negative (Negative); Blood Urine Negative (Negative); Color Urine Yellow (Yellow); Glucose Urine UA Trace mg/dL (Negative); Ketones Urine Negative (Negative); Leukocyte Esterase Ur Negative LEU/UL (Negative); Nitrate Urine Negative (Negative); Protein Urine Negative (Negative); Specific Grav Ur 1.011 (1.001-1.035); Urobilinogen Urine 0.2 mg/dL (<2.0); pH Urine 5.5 (5.0-9.0)
--- NOTE | 2024-08-26 17:54 | ED_ITS ---
HPI - General Adult General Chief complaint: Unspecified Stated complaint: I feel lousy today , headache Time Seen by Provider: 08/26/24 14:15 Source: patient and family Mode of arrival: EMS Limitations: no limitations History of Present Illness HPI narrative: 84-year-old with a history of hypertension, diabetes, hyperlipidemia was riding his of low blood sugar. as per daughter was at bedside states that she has not been eating or drinking for last couple days he did denies any nausea, vomiting or fever chills he did she has not taken any medication for her diabetes because of her poor oral intake. Upon arrival blood sugar was 38 but she was able to open eyes and respond . daughter states that every time she has a urinary tract infections blood sugars keep dropping . Onset (ago): day(s) (1) Severity: moderate Related Data Home Medications ?Medication ?Instructions ?Recorded ?Confirmed ?Last Taken ?Type atorvastatin 40 mg tablet 40 mg PO HS 01/22/21 02/23/23 Unknown History calcitriol 0.25 mcg capsule 0.25 mcg PO HS 01/22/21 02/23/23 Unknown History furosemide 20 mg tablet 20 mg PO BID 01/22/21 02/23/23 Unknown History glipizide 10 mg tablet 10 mg PO BID 01/22/21 02/23/23 Unknown History omeprazole 20 mg capsule,delayed 20 mg PO BID 01/22/21 02/23/23 Unknown History release allopurinol 100 mg tablet 100 mg PO DAILY 05/18/21 02/23/23 Unknown History cranberry fruit concentrate 250 mg 250 mg PO BID 10/14/21 02/23/23 Unknown History chewable tablet (Azo Cranberry) metoprolol tartrate 25 mg tablet 12.5 mg PO BID 10/14/21 02/23/23 Unknown History midodrine 2.5 mg tablet 2.5 mg PO BID 10/14/21 02/23/23 Unknown History famotidine 40 mg tablet 40 mg PO DAILY 11/06/22 02/23/23 Unknown History semaglutide 7 mg tablet (Rybelsus) 7 mg PO DAILY 11/06/22 02/23/23 Unknown History carbamide peroxide 6.5 % ear drops 5 drp EACH EAR Q12H PRN Ear Wax 02/23/23 02/23/23 Unknown History (Ear Wax Drops) Allergies Allergy/AdvReac Type Severity Reaction Status Date / Time Sulfa (Sulfonamide Allergy Unknown PATIENT Verified 11/06/22 13:56 Antibiotics) DOESN'T REMEMBER Review of Systems 2 Constitutional: Constitutional: Reports no additional constitutional complaints ENT: Reports system reviewed and no additional complaints, except as documented Cardiovascular: Cardiovascular: Reports no additional cardiovascular complaints Respiratory: Respiratory: Reports no additional respiratory complaints Musculoskeletal: Musculoskeletal: Reports no additional musculoskeletal complaints Integumentary/Breasts: Skin/Breast: Reports system reviewed and no additional complaints, except as docu PMFSH Past Medical History Medical History GERD (gastroesophageal reflux disease) Right kidney mass Hyperlipidemia T2DM (type 2 diabetes mellitus) Hypochromic microcytic anemia DVT (deep venous thrombosis) October 2020 - Left lower extremity Chronic kidney disease, stage 3 Baseline creatinine ranges between 1.5-1.8 Cancer of left breast Status post mastectomy and chemotherapy. Reed's esophagus Type 2 diabetes mellitus Chronic anticoagulation Hypertension Surgical History Surgical History S/P cholecystectomy History of left mastectomy History of esophagogastroduodenoscopy (01/24/21) History of colonoscopy with polypectomy (01/24/21) History of hysterectomy History of endoscopic retrograde cholangiopancreatography (02/2018) History of cholecystectomy (02/2018) History of tonsillectomy History of bilateral cataract extraction History of parathyroidectomy (09/13/18) Left inferior parathyroidectomy for benign adenoma. Family History Family History Sibling Diabetes mellitus Mother Diabetes mellitus Social History Social History Social History: Surrogate decision maker: Uzair Matrinez, son. Code status: Full code. Smoking packs per day: 1 Smoking cigarettes per day: 20.0 Years smoked: 20 Smoking pack-years: 20.00 Smoking status: Former smoker Tobacco type: cigarettes Alcohol intake: never Substance use: never Substance use type: does not use Lack of Transportation: No Lack of Food: Never True Current Housing: I Have Housing Concerned About Future Housing: No Difficulty Paying Gas/Electric Bills: No Difficulty Paying for Meds: YES Currently Unemployed: No Education: High School Diploma/GED Difficulty w/ Childcare or Family Care: No Living arrangements: with family Additional living arrangements comments: Resides in [place]. Her in spring 2020 and since that time her daughter has been staying with her. They had a total 4 children. Additional occupation/education comments: Retired. Gender identity (if verbalized by the patient): Female Spiritual care concerns: No Exam 2 Narrative: GENERAL: well-nourished, lethargic . HEAD: Normocephalic, atraumatic. EYES: PERRLA and EOMI. ENT: Nares clear, no rhinorrhea or epistaxis. Mucous membranes moist. NECK: Supple. CHEST: Clear to auscultation. No respiratory distress. HEART: Regular rate and rhythm. No murmur heard. Normal peripheral pulses. ABDOMEN: Soft, nontender, nondistended, normal active bowel sounds. EXTREMITIES: Normal range of motion. No edema. SKIN: Warm, dry, no rash. NEURO: No focal deficits. Alert and oriented x3. PSYCH: Normal mood and affect. Course Course Emergency Course: patient did respond to IV dex so she is more alert. Did inform her daughter about the lab work. Will admit her to the hospital for repeated hypoglycemic episodes. Discussed with Dr. Mccoy accepted the patient Vital Signs Vital signs: Vital Signs Temperature 36.7 C 08/26/24 14:01 Pulse Rate 71 08/26/24 14:01 Respiratory Rate 16 08/26/24 14:01 Blood Pressure 124/62 08/26/24 14:01 Pulse Oximetry 96 08/26/24 14:01 Oxygen Delivery Room Air 08/26/24 14:01 Temperature 36.5 C 08/26/24 16:15 Pulse Rate 74 08/26/24 16:32 Respiratory Rate 18 08/26/24 16:32 Blood Pressure 154/75 H 08/26/24 16:32 Pulse Oximetry 92 08/26/24 16:32 Oxygen Delivery Room Air 08/26/24 14:01 Medical Decision Making Differential Diagnosis Differential Diagnosis: insulin reaction, sepsis medication overdose Vital Signs Vital Signs: Vital Signs Temperature 36.7 C 08/26/24 14:01 Pulse Rate 71 08/26/24 14:01 Respiratory Rate 16 08/26/24 14:01 Blood Pressure 124/62 08/26/24 14:01 Pulse Oximetry 96 08/26/24 14:01 Oxygen Delivery Room Air 08/26/24 14:01 Temperature 36.5 C 08/26/24 16:15 Pulse Rate 74 08/26/24 16:32 Respiratory Rate 18 08/26/24 16:32 Blood Pressure 154/75 H 08/26/24 16:32 Pulse Oximetry 92 08/26/24 16:32 Oxygen Delivery Room Air 08/26/24 14:01 Lab Data Lab results reviewed: Yes I reviewed the patient's lab results. 08/26/24 14:26 08/26/24 14:26 Labs: Lab Results 08/26/24 08/26/24 08/26/24 Range/Units 14:05 14:25 14:26 WBC 9.2 (4.5-10.0) K/mm3 RBC 3.59 L (4.2-5.4) M/mm3 Hgb 11.8 L (12.0-15.0) g/dL Hct 35.9 L (37.0-47.0) % MCV 100.0 (80-100) fl MCH 32.9 (26-34) pg MCHC 32.9 (32-36) g/dl RDW 13.8 (11.5-14.5) % Plt Count 165 (150-375) k/mm3 MPV 9.8 (7.4-10.4) fl Immature Gran % (Auto) 0.7 H (0-0.5) % Neut % (Auto) 63.2 (45.5-73.1) % Lymph % (Auto) 19.8 (18.3-44.2) % [place] % (Auto) 14.7 H (2.6-8.5) % Eos % (Auto) 1.3 (0-4.4) % Baso % (Auto) 0.3 (0.2-1.2) % Lymph # (Auto) 1.82 (0.9-3.2) K/mm3 [place] # (Auto) 1.4 H (0.1-0.6) K/mm3 Eos # (Auto) 0.1 (0-0.3) K/mm3 Baso # (Auto) 0.0 (0.0-0.1) K/mm3 Abs Immat Gran (auto) 0.06 H (0.00-0.031) K/mm3 Absolute Neuts (auto) 5.8 (1.3-6.7) K/mm3 Absolute Nucleated RBC 0.000 (0.0-0.012) K/mm3 Nucleated RBC % 0.0 (0.0-0.2) % Sodium 129 L (137-145) mmol/L Potassium 3.8 (3.4-5.0) mmol/L Chloride 97 L (98-107) mmol/L Carbon Dioxide 27 (22-30) mmol/L Anion Gap 5 (4-12) mmol/L BUN 51 H D (7-17) mg/dL Creatinine 2.10 H (0.7-1.0) mg/dL Estim Creat Clear Calc 15 ml/min Estimated GFR 22 L (59 - ) Glucose 35 L* (65-110) mg/dL POC Capillary Glucose 34 L* 180 H (65-105) mg/dl Calcium 9.5 (8.4-10.2) mg/dL Total Bilirubin 0.5 (0.2-1.3) mg/dL AST 36 (14-36) U/L ALT 22 (6-35) U/L Alkaline Phosphatase 63 (38-126) U/L Total Protein 7.0 (6.3-8.2) g/dL Albumin 4.2 (3.5-5.1) g/dL Urine Color (Yellow) Urine Appearance (Clear) Urine pH (5.0-9.0) Ur Specific [place] (1.001-1.035) Urine Protein (Negative) mg/dL Urine Glucose (UA) (Negative) mg/dL Urine Ketones (Negative) mg/dL Ur Blood (Man) (Negative) Urine Nitrate (Negative) Urine Bilirubin (Negative) Urine Urobilinogen (<2.0) mg/dL Leukocyte Esterase Rfl (Negative) PO/UL 08/26/24 08/26/24 Range/Units 15:46 16:46 WBC (4.5-10.0) K/mm3 RBC (4.2-5.4) M/mm3 Hgb (12.0-15.0) g/dL Hct (37.0-47.0) % MCV (80-100) fl MCH (26-34) pg MCHC (32-36) g/dl RDW (11.5-14.5) % Plt Count (150-375) k/mm3 MPV (7.4-10.4) fl Immature Gran % (Auto) (0-0.5) % Neut % (Auto) (45.5-73.1) % Lymph % (Auto) (18.3-44.2) % [place] % (Auto) (2.6-8.5) % Eos % (Auto) (0-4.4) % Baso % (Auto) (0.2-1.2) % Lymph # (Auto) (0.9-3.2) K/mm3 [place] # (Auto) (0.1-0.6) K/mm3 Eos # (Auto) (0-0.3) K/mm3 Baso # (Auto) (0.0-0.1) K/mm3 Abs Immat Gran (auto) (0.00-0.031) K/mm3 Absolute Neuts (auto) (1.3-6.7) K/mm3 Absolute Nucleated RBC (0.0-0.012) K/mm3 Nucleated RBC % (0.0-0.2) % Sodium (137-145) mmol/L Potassium (3.4-5.0) mmol/L Chloride (98-107) mmol/L Carbon Dioxide (22-30) mmol/L Anion Gap (4-12) mmol/L BUN (7-17) mg/dL Creatinine (0.7-1.0) mg/dL Estim Creat Clear Calc ml/min Estimated GFR (59 - ) Glucose (65-110) mg/dL POC Capillary Glucose 134 H (65-105) mg/dl Calcium (8.4-10.2) mg/dL Total Bilirubin (0.2-1.3) mg/dL AST (14-36) U/L ALT (6-35) U/L Alkaline Phosphatase (38-126) U/L Total Protein (6.3-8.2) g/dL Albumin (3.5-5.1) g/dL Urine Color Yellow (Yellow) Urine Appearance Clear (Clear) Urine pH 5.5 (5.0-9.0) Ur Specific [place] 1.011 (1.001-1.035) Urine Protein Negative (Negative) mg/dL Urine Glucose (UA) Trace H (Negative) mg/dL Urine Ketones Negative (Negative) mg/dL Ur Blood (Man) Negative (Negative) Urine Nitrate Negative (Negative) Urine Bilirubin Negative (Negative) Urine Urobilinogen 0.2 (<2.0) mg/dL Leukocyte Esterase Rfl Negative (Negative) PO/UL Imaging Data Radiologist's impression: ITS Impressions Chest X-Ray 08/26/24 17:37 IMPRESSION: Bibasilar opacification which may indicate atelectasis versus pneumonia. Bilateral interstitial thickening which may indicate pneumonitis versus pulmonary edema. Clinical correlation advised. ECG Data EKG #1: ECG completion date: 08/26/24 ECG completion time: 16:51 EKG Interpretation: normal rate (74), sinus rhythm, no ST changes, normal QT and left axis Discharge Plan Discharge Clinical Impression: Hypoglycemia, SPENSER (acute kidney injury) Patient Disposition: Still a Patient Condition: Stable Patient Language: Marshallese Prescriptions: No Action famotidine 40 mg tablet 40 mg PO DAILY Rybelsus 7 mg tablet 7 mg PO DAILY midodrine 2.5 mg tablet 2.5 mg PO BID Azo Cranberry 250 mg Tablet,Chewable 250 mg PO BID metoprolol tartrate 25 mg tablet 12.5 mg PO BID Ear Wax Drops 6.5 % drops 5 drp EACH EAR Q12H PRN (Reason: Ear Wax) amoxicillin-pot clavulanate [Augmentin] 500-125 mg Tablet 1 tablet PO Q12HR 3 Days Qty: 6 0RF atorvastatin 40 mg tablet 40 mg PO HS glipizide 10 mg tablet 10 mg PO BID omeprazole 20 mg capsule,delayed release(DR/EC) 20 mg PO BID furosemide 20 mg tablet 20 mg PO BID calcitriol 0.25 mcg capsule 0.25 mcg PO HS ferrous gluconate 324 mg (38 mg iron) tablet 324 mg PO DAILY Qty: 30 0RF allopurinol 100 mg tablet 100 mg PO DAILY Follow-up/Referrals: Rowland,Jessika Grier APN [Primary Care Provider] - Time of Disposition: 17:55
[2024-08-26] MEDS: ONDANSETRON INJ 4 MG/2 ML VIAL IV PUSH (19:01)
[2024-08-26] MEDS: SODIUM CHLORIDE 0.9% IV 1,000 ML 125 ML IV CONT (19:01)
[2024-08-26 19:03] LABS: Glucose Point of Care 95 mg/dl (65-105)
--- NOTE | 2024-08-26 19:40 | P.HP_ITS ---
H&P: HPI History of Present Illness Date/Time: 08/26/24 19:40 Chief Complaint: Hypoglycemia Altered Mental Status Narrative: 84-year-old female who with past medical history of hypertension, hyperlipidemia, diabetes on glipizide and insulin presented with altered mental status and persistent low blood sugars at home. She has history of recurrent UTIs which triggers her altered mental status. She recently completed treatment for UTI with nitrofurantoin. Since she has not been feeling well with decreased appetite, decreased fluid intake. Did take her insulin and glipizide as usual on . Her sugars were as low as in 40s this morning at home. Presented to the ER, her sugar was 35 on arrival. Daughter and son at bedside who reports slurring of speech as well. Had an episode of vomiting after coming to the ER. No known fever, chills, fall recently. Found to have Spenser with hyponatremia and persistent hypoglycemia. Review of Systems Review of Systems: ROS unobtainable: Yes unobtainable due to medical condition and unobtainable due to mental status PMFSH Past Medical History Medical History GERD (gastroesophageal reflux disease) Right kidney mass Hyperlipidemia T2DM (type 2 diabetes mellitus) Hypochromic microcytic anemia DVT (deep venous thrombosis) October 2020 - Left lower extremity Chronic kidney disease, stage 3 Baseline creatinine ranges between 1.5-1.8 Cancer of left breast Status post mastectomy and chemotherapy. Reed's esophagus Type 2 diabetes mellitus Chronic anticoagulation Hypertension Surgical History Surgical History S/P cholecystectomy History of left mastectomy History of esophagogastroduodenoscopy (01/24/21) History of colonoscopy with polypectomy (01/24/21) History of hysterectomy History of endoscopic retrograde cholangiopancreatography (02/2018) History of cholecystectomy (02/2018) History of tonsillectomy History of bilateral cataract extraction History of parathyroidectomy (09/13/18) Left inferior parathyroidectomy for benign adenoma. Family History Family History Sibling Diabetes mellitus Mother Diabetes mellitus Social History Social History Social History: Surrogate decision maker: Uzair Martinez, cherry. Code status: Full code. Smoking packs per day: 1 Smoking cigarettes per day: 20.0 Years smoked: 20 Smoking pack-years: 20.00 Smoking status: Former smoker Tobacco type: cigarettes Alcohol intake: never Substance use: never Substance use type: does not use Lack of Transportation: No Lack of Food: Never True Current Housing: I Have Housing Concerned About Future Housing: No Difficulty Paying Gas/Electric Bills: No Difficulty Paying for Meds: YES Currently Unemployed: No Education: High School Diploma/GED Difficulty w/ Childcare or Family Care: No Living arrangements: with family Additional living arrangements comments: Resides in [place]. Her in spring 2020 and since that time her daughter has been staying with her. They had a total 4 children. Additional occupation/education comments: Retired. Gender identity (if verbalized by the patient): Female Spiritual care concerns: No Meds Home Medications and Allergies Home Medications ?Medication ?Instructions ?Recorded ?Confirmed ?Type atorvastatin 40 mg tablet 40 mg PO HS 01/22/21 02/23/23 History calcitriol 0.25 mcg capsule 0.25 mcg PO 01/22/21 02/23/23 History furosemide 20 mg tablet 20 mg PO BID 01/22/21 02/23/23 History glipizide 10 mg tablet 10 mg PO BID 01/22/21 02/23/23 History omeprazole 20 mg capsule,delayed 20 mg PO BID 01/22/21 02/23/23 History release ferrous gluconate 324 mg (38 mg 324 mg PO DAILY #30 tabs 01/24/21 02/23/23 Rx iron) tablet allopurinol 100 mg tablet 100 mg PO DAILY 05/18/21 02/23/23 History cranberry fruit concentrate 250 mg 250 mg PO BID 10/14/21 02/23/23 History chewable tablet (Azo Cranberry) metoprolol tartrate 25 mg tablet 12.5 mg PO BID 10/14/21 02/23/23 History midodrine 2.5 mg tablet 2.5 mg PO BID 10/14/21 02/23/23 History famotidine 40 mg tablet 40 mg PO DAILY 11/06/22 02/23/23 History semaglutide 7 mg tablet (Rybelsus) 7 mg PO DAILY 11/06/22 02/23/23 History carbamide peroxide 6.5 % ear drops 5 drp EACH EAR Q12H PRN Ear Wax 02/23/23 02/23/23 History (Ear Wax Drops) amoxicillin 500 mg-potassium 1 tablet PO Q12HR 3 days #6 tabs 02/26/23 Rx clavulanate 125 mg tablet (Augmentin) Allergies Allergy/AdvReac Type Severity Reaction Status Date / Time Sulfa (Sulfonamide Allergy Unknown PATIENT Verified 11/06/22 13:56 Antibiotics) DOESN'T REMEMBER Vital Signs Vital Signs - 24 hr 08/26/24 14:01 08/26/24 14:31 08/26/24 15:00 Temperature 98.1 F 97.9 F 97.6 F Pulse Rate 71 74 67 Respiratory Rate 16 16 16 Blood Pressure 124/62 144/68 H 138/68 Pulse Oximetry 96 94 94 Oxygen Delivery Room Air 08/26/24 15:32 08/26/24 16:15 08/26/24 16:32 Temperature 97.6 F 97.7 F Pulse Rate 67 75 74 Respiratory Rate 20 20 18 Blood Pressure 157/67 H 156/68 H 154/75 H Pulse Oximetry 94 93 92 Oxygen Delivery 08/26/24 17:16 08/26/24 17:30 08/26/24 17:45 Temperature 97.6 F 97.8 F Pulse Rate 74 71 72 Respiratory Rate 18 23 H 18 Blood Pressure 154/80 H 156/84 H Pulse Oximetry 94 90 92 Oxygen Delivery 08/26/24 18:25 Temperature 97.8 F Pulse Rate 70 Respiratory Rate 18 Blood Pressure 156/75 H Pulse Oximetry 93 Oxygen Delivery Exam Const: Other: Nasal cannula in place HENMT: Other: Dry mucous membrane Eyes: Sclera: sclerae normal Neck: Neck: supple Resp: Other: Bilateral decreased breath sounds, no wheezing heard, few rhonchi Cardio: Rate: regular rate Rhythm: regular rhythm GI: GI Palp: Yes Soft to palpation Auscultation: normal bowel sounds Other: Nontender Skin: General skin exam: normal color Neuro: Other: Unable to assess, patient lethargic Extrem: General: normal to inspection Other: No pedal edema Psych: Other: Unable to assess H&P: Results Labs Labs: Short CBC 08/26/24 Range/Units 14:26 WBC 9.2 (4.5-10.0) K/mm3 Hgb 11.8 L (12.0-15.0) g/dL Hct 35.9 L (37.0-47.0) % Plt Count 165 (150-375) k/mm3 BMP 08/26/24 14:26 Sodium 129 L Potassium 3.8 Chloride 97 L Carbon Dioxide 27 BUN 51 H D Creatinine 2.10 H Glucose 35 L* Calcium 9.5 Liver Function 08/26/24 Range/Units 14:26 Total Bilirubin 0.5 (0.2-1.3) mg/dL AST 36 (14-36) U/L ALT 22 (6-35) U/L Alkaline Phosphatase 63 (38-126) U/L Albumin 4.2 (3.5-5.1) g/dL Urine 08/26/24 Range/Units 16:46 Urine Color Yellow (Yellow) Urine Appearance Clear (Clear) Urine pH 5.5 (5.0-9.0) Ur Specific [place] 1.011 (1.001-1.035) Urine Protein Negative (Negative) mg/dL Urine Glucose (UA) Trace H (Negative) mg/dL Assessment and Plan Assessment and plan (1) SPENSER (acute kidney injury): Code(s): N17.9 - Acute kidney failure, unspecified Status: Acute (2) Hypoglycemia: Code(s): E16.2 - Hypoglycemia, unspecified Status: Acute (3) Generalized weakness: Code(s): R53.1 - Weakness Status: Acute Plan 84-year-old female with past medical history of diabetes, hypertension, hyperlipidemia presented with altered mental status, persistent hypoglycemia, hyponatremia along with acute kidney injury. 1. Acute encephalopathy: Very likely secondary to persistent hypoglycemia Monitor hemodynamics closely Admit to telemetry medicine Will correct the cause Obtain CT head as well NPO until mental status improves 2. Type 2 diabetes mellitus with severe hypoglycemia: Patient has been on glipizide and insulin at home Noted acute kidney injury Blood glucose check q.4 hours start on D5 at 50 cc an hour Hypoglycemia treatment per protocol Will obtain HGB A1c with next set of labs Hold insulin and glipizide Definitely not a candidate for both upon discharge 3. Possible community-acquired pneumonia: Currently on O2 support Obtain blood culture Will start on ceftriaxone and azithromycin, no leukocytosis Will obtain urine Legionella antigen as well ? Possible pulmonary edema on chest x-ray Obtain BMP with next set of labs Obtain echocardiogram as well 4. Acute kidney injury+ hyponatremia+ dehydration Secondary to poor p.o. intake Poor fluid intake at home Continue with IV fluids Recheck BMP in a.m. Avoid nephrotoxins Obtain renal ultrasound Nutrition consult in morning 5. DVT prophylaxis: Heparin subQ 6. Code status: Do not resuscitate, discussed with daughter at bedside 7. Disposition: Admit to telemetry medicine, medication reconciliation pending Quality VTE Prophylaxis VTE prophylaxis: pharmacologic ordered Hospitalist [facility] Advance Care Plan I have confirmed that the patient's Advanced Care Plan is present, code status is documented, or surrogate decision maker is listed in patient medical record.: Yes Medication Reconciliation The patient is not eligible for med reconciliation; the patient is in a emergent medical situation where delaying treatment would jeopardize the patients health.: No
--- NOTE | 2024-08-26 20:14 | PC.NURSE ---
RN called to give report at this time. RN taking patient was not available.
--- NOTE | 2024-08-26 20:24 | PC.NURSE ---
report given to floor nurse at this time. patient going to room 320.
--- NOTE | 2024-08-26 22:06 | PC.NURSE ---
This patient, Sandee Martinez, was admitted to 3 Med Surg Room 320-01. Patient/family oriented to hospital policies and general routines including ID bracelet, bed and alarms, visiting hours, pain management, procedures, bathroom and other care routines, personal items, smoking policy, room service/diet, and visiting hours. Information on how to activate the Rapid Response Team has been discussed. Patient/Family are encouraged to report perceived risks to care and to ask questions if they do not understand what they are told or what they should do.
[2024-08-26 22:17] LABS: Glucose Point of Care 121 mg/dl (65-105)
[2024-08-26] MEDS: AZITHROMYCIN 500 MG/NS 250 ML 500 MG/250 ML BAG 250 MG IVPB (23:00)
[2024-08-26] MEDS: HEPARIN SODIUM 5,000 UNITS/ML VIAL 5000 UNITS SUB-Q (23:04)
[2024-08-27] VITALS (8 sets, daily range): BP systolic 113–166; BP diastolic 61–88; PULSE 70–94; RESP 18–22; TEMP 36.1–38.9; O2SAT 93–98
[2024-08-27 00:45] LABS: Glucose Point of Care 112 mg/dl (65-105)
[2024-08-27 04:36] LABS: Hemoglobin A1C 7.3 % (<5.7)
[2024-08-27] MEDS: DEXTROSE 50% 25 GM/50 ML SYRINGE IV PUSH (05:06)
[2024-08-27] MEDS: IBUPROFEN IV 800 MG/200 ML 800 MG/200 ML BAG 400 MG IVPB (05:12)
[2024-08-27] MEDS: DEXTROSE 10% 1,000 ML 65 ML IV CONT (05:42)
[2024-08-27 06:46] LABS: Basophils Percent Auto 0.2 % (0.2-1.2); Hematocrit 32.7 % (37.0-47.0); Hemoglobin 10.6 g/dL (12.0-15.0); Immature Granulocyte Absolute 0.06 K/mm3 (0.00-0.031); Immature Granulocyte Percent A 0.6 % (0-0.5); Lymphocytes Absolute Auto 1.06 K/mm3 (0.9-3.2); Lymphocytes Percent Auto 9.9 % (18.3-44.2); Mean Corpuscular HGB Conc 32.4 g/dl (32-36); Mean Corpuscular Hemoglobin 32.3 pg (26-34); Mean Corpuscular Volume 99.7 fl (80-100); Mean Platelet Volume 9.6 fl (7.4-10.4); Monocytes Absolute Auto 0.7 K/mm3 (0.1-0.6); Neutrophils Percent Auto 83.3 % (45.5-73.1); Platelet Count Result 123 k/mm3 (150-375); Red Blood Count 3.28 M/mm3 (4.2-5.4); Red Cell Distribution Width 13.7 % (11.5-14.5); White Blood Count 10.8 K/mm3 (4.5-10.0)
[2024-08-27 07:09] LABS: Anion Gap 3 mmol/L (4-12); Blood Urea Nitrogen 40 mg/dL (7-17); Calcium 8.1 mg/dL (8.4-10.2); Carbon Dioxide 25 mmol/L (22-30); Chloride 102 mmol/L (98-107); Estimated CRCL calculation 17 ml/min; Estimated Glomerular Filt Rate 27; Glucose 209 mg/dL (65-110); Magnesium 1.2 mg/dL (1.6-2.3); Potassium 3.3 mmol/L (3.4-5.0); Sodium 130 mmol/L (137-145)
[2024-08-27 07:12] LABS: NT Pro B Type Natriuretic Pept 9350 pg/mL (19.9-100)
[2024-08-27 07:20] LABS: Glucose Point of Care 89 mg/dl (65-105)
[2024-08-27] MEDS: PANTOPRAZOLE SODIUM IV 40 MG VIAL IV PUSH (08:40)
[2024-08-27] MEDS: HEPARIN SODIUM 5,000 UNITS/ML VIAL 5000 UNITS SUB-Q ×2 (08:40→20:30)
--- NOTE | 2024-08-27 09:24 | P.PNIM_ITS ---
Progress Note: A&P Assessment and Plan (1) SPENSER (acute kidney injury): Code(s): N17.9 - Acute kidney failure, unspecified Status: Acute (2) Hypoglycemia: Code(s): E16.2 - Hypoglycemia, unspecified Status: Acute (3) Generalized weakness: Code(s): R53.1 - Weakness Status: Acute Plan 84-year-old female with past medical history of diabetes, hypertension, hyperlipidemia presented with altered mental status, persistent hypoglycemia, hyponatremia along with acute kidney injury. 1. Acute encephalopathy: Very likely secondary to persistent hypoglycemia Monitor hemodynamics closely Admit to telemetry medicine Will correct the cause Obtain CT head as well NPO until mental status improves Request speech eval Patient is still not oriented x3 2. Type 2 diabetes mellitus with severe hypoglycemia: Patient has been on glipizide and insulin at home Noted acute kidney injury Blood glucose check q.4 hours start on D5 at 50 cc an hour Hypoglycemia treatment per protocol Hold insulin and glipizide Definitely not a candidate for both upon discharge 3. Possible community-acquired pneumonia: Currently on O2 support Obtain blood culture Continue ceftriaxone and azithromycin, no leukocytosis Pending urine Legionella antigen as well Possible pulmonary edema on chest x-ray Obtain BMP with next set of labs Pending echocardiogram as well 4. Acute kidney injury+ hyponatremia+ dehydration Secondary to poor p.o. intake Poor fluid intake at home Continue with IV fluids Recheck BMP in a.m. Avoid nephrotoxins Pending renal ultrasound Nutrition consult in morning 08/27 Labs reviewed today, creatinine is trending down 1.8, sodium improving 130, hypokalemia potassium 3.3 Replete with potassium chloride 20 mg IV Continue current management 5. DVT prophylaxis: Heparin subQ 6. Code status: Do not resuscitate, discussed with daughter at bedside 7. Disposition: Admit to telemetry medicine, medication reconciliation pending Subjective Date/time seen: 08/27/24 09:24 Interval history: I saw exam patient today. But feels better. Patient has a general weakness. Patient denies chest pain any palpitation, patient is afebrile, on 2 L oxygen. Patient is not oriented x3 Exam Narrative: GENERAL: , lethargic in no acute distress. Well-nourished. - EYES: EOMI. Anicteric. - HENT: Moist mucous membranes. - LUNGS: Clear to auscultation bilateral ly, no wheezing, rhonchi, or rales. - CARDIOVASCULAR: Regular rate and rhyth m. No murmur. No JVD. - ABDOMEN: Soft, suprapubic tender and n on-distended. No palpable masses. - EXTREMITIES: No edema. Peripheral puls es 2+. Non-tender. - NEUROLOGIC: No focal neurological defi cits. CN II-XII grossly intact. - PSYCHIATRIC: Awake, Alert and not orie nted x 3. - SKIN: No rashes or lesions. Warm. - LYMPH: No cervical lymphadenopathy. Objective Data Vital Signs Vital Signs: Vital Signs - 24 hr 08/26/24 14:01 08/26/24 14:31 08/26/24 15:00 Temperature 98.1 F 97.9 F 97.6 F Pulse Rate 71 74 67 Respiratory Rate 16 16 16 Blood Pressure 124/62 144/68 H 138/68 Pulse Oximetry 96 94 94 Oxygen Delivery Room Air Oxygen Flow Rate Fraction of Inspired Oxygen 08/26/24 15:32 08/26/24 16:15 08/26/24 16:32 Temperature 97.6 F 97.7 F Pulse Rate 67 75 74 Respiratory Rate 20 20 18 Blood Pressure 157/67 H 156/68 H 154/75 H Pulse Oximetry 94 93 92 Oxygen Delivery Oxygen Flow Rate Fraction of Inspired Oxygen 08/26/24 17:16 08/26/24 17:30 08/26/24 17:45 Temperature 97.6 F 97.8 F Pulse Rate 74 71 72 Respiratory Rate 18 23 H 18 Blood Pressure 154/80 H 156/84 H Pulse Oximetry 94 90 92 Oxygen Delivery Oxygen Flow Rate Fraction of Inspired Oxygen 08/26/24 18:25 08/26/24 22:00 08/26/24 23:06 Temperature 97.8 F 98.5 F Pulse Rate 70 85 Respiratory Rate 18 20 Blood Pressure 156/75 H 114/71 Pulse Oximetry 93 93 Oxygen Delivery Nasal Cannula Oxygen Flow Rate 2 Fraction of Inspired Oxygen 08/27/24 05:12 08/27/24 05:35 08/27/24 06:12 Temperature 102 F H 102.1 F H 99.2 F Pulse Rate 94 Respiratory Rate 22 H Blood Pressure 113/61 Pulse Oximetry 95 Oxygen Delivery Oxygen Flow Rate Fraction of Inspired Oxygen 08/27/24 08:52 Temperature Pulse Rate Respiratory Rate Blood Pressure Pulse Oximetry 93 Oxygen Delivery Nasal Cannula Oxygen Flow Rate 2 Fraction of Inspired Oxygen 28 Intake/Output Intake/Output: Intake & Output 08/24/24 08/25/24 08/26/24 08/27/24 23:59 23:59 23:59 23:59 Intake Total 1500 Output Total 300 150 Balance -300 1350 Meds/Results Medications: Active Medications Generic Name Dose Route Start Last Admin Trade Name Freq PRN Reason Stop Dose Admin Acetaminophen 650 mg 08/26/24 18:02 Acetaminophen 325 Mg Tablet PO Q4H PRN Mild Pain (1-3) or Fever Dextrose 12.5 gm 08/26/24 19:51 Dextrose 50% 25 Gm/50 Ml Syringe IV PUSH PRN PRN Hypoglycemia Protocol Glucagon 1 mg 08/26/24 19:51 Glucagon For Inj 1 Mg Vial IM PRN PRN Hypoglycemia Protocol Glucose 15 gm 08/26/24 19:51 Glucose Oral Gel 15 Gm Of Glucse In 37.5 Gm Tube PO PRN PRN Hypoglycemia Protocol Heparin Sodium (Porcine) 5,000 units 08/26/24 21:00 08/27/24 08:40 Heparin Sodium 5,000 Units/Ml Vial SUB-Q 5,000 units Q12HR SELENA Administration Hydralazine HCl 5 mg 08/26/24 20:03 Hydralazine Hcl 20 Mg/Ml Vial IV PUSH Q6HR PRN Blood Pressure - High Sodium Chloride 1,000 mls @ 125 mls/hr 08/26/24 18:05 08/27/24 03:01 Normal Saline Iv IV CONT Infused .Q8H SELENA Infusion Ceftriaxone Sodium 1 gm in 50 mls @ 100 mls/hr 08/26/24 21:00 08/27/24 00:40 Rocephin 1 Gm/Ns 50 Ml IVPB 09/01/24 21:29 Infused Q24H SELENA Infusion Azithromycin 500 mg in 250 mls @ 250 mls/hr 08/26/24 20:00 08/27/24 00:00 Zithromax IVPB 08/28/24 20:59 Infused Q24H SELENA Infusion Dextrose 1,000 mls @ 100 mls/hr 08/26/24 19:51 Dextrose 5% 1,000 Ml IVPB PRN PRN Hypoglycemia Protocol Dextrose 1,000 mls @ 50 mls/hr 08/26/24 19:55 Dextrose 5% 1,000 Ml IV CONT 08/27/24 13:54 .Q20H SELENA Dextrose 1,000 mls @ 65 mls/hr 08/27/24 04:48 08/27/24 05:42 Dextrose 10% IV CONT 08/27/24 20:11 65 mls/hr .[id number] ONE Administration Ondansetron HCl 4 mg 08/26/24 18:02 Ondansetron Inj 4 Mg/2 Ml Vial IV PUSH Q4H PRN Nausea Pantoprazole Sodium 40 mg 08/27/24 09:00 08/27/24 08:40 Pantoprazole Sodium Iv 40 Mg Vial IV PUSH 40 mg QAM SELENA Administration Perflutren Lipid Microsphere 0 ml 08/26/24 19:55 Perflutren Lipid Microspheres 1.5 Ml Vial Diluted To 10 Ml Total Volume IV PUSH 08/29/24 19:55 ONCE PRN adequate visualization Protocol Radiology Results: ITS Impressions Chest X-Ray 08/26/24 17:37 IMPRESSION: Bibasilar opacification which may indicate atelectasis versus pneumonia. Bilateral interstitial thickening which may indicate pneumonitis versus pulmonary edema. Clinical correlation advised. Head CT 08/26/24 21:07 IMPRESSION: No acute intracranial findings. Labs Labs: Laboratory Results - last 24 hr 08/26/24 08/26/24 08/26/24 14:05 14:25 14:26 WBC 9.2 RBC 3.59 L Hgb 11.8 L Hct 35.9 L MCV 100.0 MCH 32.9 MCHC 32.9 RDW 13.8 Plt Count 165 MPV 9.8 Immature Gran % (Auto) 0.7 H Neut % (Auto) 63.2 Lymph % (Auto) 19.8 [place] % (Auto) 14.7 H Eos % (Auto) 1.3 Baso % (Auto) 0.3 Lymph # (Auto) 1.82 [place] # (Auto) 1.4 H Eos # (Auto) 0.1 Baso # (Auto) 0.0 Abs Immat Gran (auto) 0.06 H Absolute Neuts (auto) 5.8 Absolute Nucleated RBC 0.000 Nucleated RBC % 0.0 Sodium 129 L Potassium 3.8 Chloride 97 L Carbon Dioxide 27 Anion Gap 5 BUN 51 H D Creatinine 2.10 H Estim Creat Clear Calc 15 Estimated GFR 22 L Glucose 35 L* POC Capillary Glucose 34 L* 180 H Hemoglobin A1c 7.3 H Calcium 9.5 Magnesium Total Bilirubin 0.5 AST 36 ALT 22 Alkaline Phosphatase 63 NT-Pro-B Natriuret Pep Total Protein 7.0 Albumin 4.2 Urine Color Urine Appearance Urine pH Ur Specific [place] Urine Protein Urine Glucose (UA) Urine Ketones Ur Blood (Man) Urine Nitrate Urine Bilirubin Urine Urobilinogen Leukocyte Esterase Rfl 08/26/24 08/26/24 08/26/24 15:46 16:46 18:59 WBC RBC Hgb Hct MCV MCH MCHC RDW Plt Count MPV Immature Gran % (Auto) Neut % (Auto) Lymph % (Auto) [place] % (Auto) Eos % (Auto) Baso % (Auto) Lymph # (Auto) [place] # (Auto) Eos # (Auto) Baso # (Auto) Abs Immat Gran (auto) Absolute Neuts (auto) Absolute Nucleated RBC Nucleated RBC % Sodium Potassium Chloride Carbon Dioxide Anion Gap BUN Creatinine Estim Creat Clear Calc Estimated GFR Glucose POC Capillary Glucose 134 H 95 Hemoglobin A1c Calcium Magnesium Total Bilirubin AST ALT Alkaline Phosphatase NT-Pro-B Natriuret Pep Total Protein Albumin Urine Color Yellow Urine Appearance Clear Urine pH 5.5 Ur Specific [place] 1.011 Urine Protein Negative Urine Glucose (UA) Trace H Urine Ketones Negative Ur Blood (Man) Negative Urine Nitrate Negative Urine Bilirubin Negative Urine Urobilinogen 0.2 Leukocyte Esterase Rfl Negative 08/26/24 08/27/24 08/27/24 22:13 00:33 04:40 WBC RBC Hgb Hct MCV MCH MCHC RDW Plt Count MPV Immature Gran % (Auto) Neut % (Auto) Lymph % (Auto) [place] % (Auto) Eos % (Auto) Baso % (Auto) Lymph # (Auto) [place] # (Auto) Eos # (Auto) Baso # (Auto) Abs Immat Gran (auto) Absolute Neuts (auto) Absolute Nucleated RBC Nucleated RBC % Sodium Potassium Chloride Carbon Dioxide Anion Gap BUN Creatinine Estim Creat Clear Calc Estimated GFR Glucose POC Capillary Glucose 121 H 112 H 89 Hemoglobin A1c Calcium Magnesium Total Bilirubin AST ALT Alkaline Phosphatase NT-Pro-B Natriuret Pep Total Protein Albumin Urine Color Urine Appearance Urine pH Ur Specific [place] Urine Protein Urine Glucose (UA) Urine Ketones Ur Blood (Man) Urine Nitrate Urine Bilirubin Urine Urobilinogen Leukocyte Esterase Rfl 08/27/24 06:31 WBC 10.8 H RBC 3.28 L Hgb 10.6 L Hct 32.7 L MCV 99.7 MCH 32.3 MCHC 32.4 RDW 13.7 Plt Count 123 L MPV 9.6 Immature Gran % (Auto) 0.6 H Neut % (Auto) 83.3 H Lymph % (Auto) 9.9 L [place] % (Auto) 6.0 Eos % (Auto) 0.0 Baso % (Auto) 0.2 Lymph # (Auto) 1.06 [place] # (Auto) 0.7 H Eos # (Auto) 0.0 Baso # (Auto) 0.0 Abs Immat Gran (auto) 0.06 H Absolute Neuts (auto) 9.0 H Absolute Nucleated RBC 0.000 Nucleated RBC % 0.0 Sodium 130 L Potassium 3.3 L Chloride 102 Carbon Dioxide 25 Anion Gap 3 L BUN 40 H D Creatinine 1.80 H Estim Creat Clear Calc 17 Estimated GFR 27 L Glucose 209 H POC Capillary Glucose Hemoglobin A1c Calcium 8.1 L Magnesium 1.2 L Total Bilirubin AST ALT Alkaline Phosphatase NT-Pro-B Natriuret Pep 9350 H Total Protein Albumin Urine Color Urine Appearance Urine pH Ur Specific [place] Urine Protein Urine Glucose (UA) Urine Ketones Ur Blood (Man) Urine Nitrate Urine Bilirubin Urine Urobilinogen Leukocyte Esterase Rfl
[2024-08-27 09:42] LABS: Glucose Point of Care 205 mg/dl (65-105)
[2024-08-27] MEDS: KCL 20 MEQ/SW 100 ML 100 ML IVPB (10:18)
--- NOTE | 2024-08-27 16:05 | PCSTNOTE ---
Please refer to the Modified Barium Swallow Evaluation in the EMR. MODIFIED BARIUM SWALLOW STUDY Patient was seen for a Modified Barium Swallow Study (MBSS) after being diagnosed with pneumonia. The pt was alert and oriented throughout the MBSS and denies having any trouble swallowing at this time. Patient was viewed in the lateral position to the level of C5/C6. Trials of thin liquid, extremely thick liquid (pudding), mixed consistency (fruit cocktail), and regular solid (minal cracker) were observed via cup edge, spoon, and straw. Flash penetration was observed on the first cup sip of thin liquid. This could be d/t the pt being NPO prior to the MBSS and having a dry mouth/throat. No other s/s of penetration or aspiration were observed throughout the swallow study. When masticating trials of fruit cocktail and minal cracker, the pt would masticate in the anterior portion of her oral cavity. On one instance this caused a small amount of the fruit cocktail to pour into the pyriform sinuses but residue quickly resolved following a timely swallow. The pt?s vocal quality remained clear and no coughing was observed this date. The oral, pharyngeal, and cricopharyngeal stages of the pts swallow are all within functional limits. Due to anterior mastication observed on the mixed and solid consistencies, the ST had a discussion with the pt regarding a suggestion to change her diet to Level 6 IDDSI: Soft and bite-sized to aid in mastication. The pt verbalized that she would like to stay on the Level 7 IDDSI: Regular solids diet. Given the results of this assessment, it is recommended this pt receive an oral diet of regular solids (IDDSI Level 7) and thin liquids (IDDSI Level 1). It is additionally recommended that the pt follow these standard swallowing precautions: Small bites/sips, sit upright during meals, and alternate solids/liquids with frequent observation during meals. Dr. Best and RN notified. No further ST is warranted at this time. Thank you for this referral.
[2024-08-27 16:45] LABS: Glucose Point of Care 292 mg/dl (65-105)
[2024-08-27] MEDS: AZITHROMYCIN 500 MG/NS 250 ML 500 MG/250 ML BAG 250 MG IVPB (20:30)
[2024-08-27 22:03] LABS: Glucose Point of Care 347 mg/dl (65-105)
[2024-08-27] MEDS: MAGNESIUM SULF 2 GM/WATER 50ML 2 GM/50 ML BAG IVPB (22:26)
[2024-08-28] VITALS (12 sets, daily range): BP systolic 106–112; BP diastolic 54–71; PULSE 67–128; RESP 18; TEMP 36.7–37.2; O2SAT 92–99
[2024-08-28 06:46] LABS: Hematocrit 33.6 % (37.0-47.0); Hemoglobin 11.4 g/dL (12.0-15.0); Mean Corpuscular HGB Conc 33.9 g/dl (32-36); Mean Corpuscular Hemoglobin 33.1 pg (26-34); Mean Corpuscular Volume 97.7 fl (80-100); Mean Platelet Volume 10.3 fl (7.4-10.4); Platelet Count Result 126 k/mm3 (150-375); Red Blood Count 3.44 M/mm3 (4.2-5.4); Red Cell Distribution Width 13.9 % (11.5-14.5); White Blood Count 11.3 K/mm3 (4.5-10.0)
[2024-08-28 06:59] LABS: Anion Gap 2 mmol/L (4-12); Blood Urea Nitrogen 38 mg/dL (7-17); Calcium 8.6 mg/dL (8.4-10.2); Carbon Dioxide 25 mmol/L (22-30); Chloride 103 mmol/L (98-107); Estimated CRCL calculation 18 ml/min; Estimated Glomerular Filt Rate 29; Glucose 148 mg/dL (65-110); Magnesium 2.1 mg/dL (1.6-2.3); Sodium 130 mmol/L (137-145)
[2024-08-28 08:09] LABS: Glucose Point of Care 143 mg/dl (65-105)
[2024-08-28] MEDS: HEPARIN SODIUM 5,000 UNITS/ML VIAL 5000 UNITS SUB-Q ×2 (09:19→20:20)
[2024-08-28] MEDS: PANTOPRAZOLE SODIUM IV 40 MG VIAL IV PUSH (09:19)
[2024-08-28 12:22] LABS: Glucose Point of Care 199 mg/dl (65-105)
--- NOTE | 2024-08-28 12:24 | PM.IMPN ---
Progress Note: A&P Assessment and Plan (1) SPENSER (acute kidney injury): Code(s): N17.9 - Acute kidney failure, unspecified Status: Acute (2) Hypoglycemia: Code(s): E16.2 - Hypoglycemia, unspecified Status: Acute (3) Generalized weakness: Code(s): R53.1 - Weakness Status: Acute Plan 1. Acute encephalopathy: Very likely secondary to persistent hypoglycemia CT nl Continue to monitor in hospital 2. Type 2 diabetes mellitus with severe hypoglycemia: Patient has been on glipizide and insulin at home Noted acute kidney injury Blood glucose check q.4 hours start on D5 at 50 cc an hour Hypoglycemia treatment per protocol Hold insulin and glipizide Pt is on iv fluids currently NS 3. Possible community-acquired pneumonia: Currently on O2 support Obtain blood culture Continue ceftriaxone and azithromycin, no leukocytosis awaiting echo result 4. Acute kidney injury+ hyponatremia+ dehydration Secondary to poor p.o. intake Poor fluid intake at home Continue with IV fluids Recheck BMP in a.m. Avoid nephrotoxins Pending renal ultrasound Nutrition consult in morning 08/27 Labs reviewed today, creatinine is trending down 1.8, sodium improving 130, hypokalemia potassium 3.3 Replete with potassium chloride 20 mg IV Continue current management 08/28 watch bmp creat is 1.7 continue ti hydrate with fluids slowly watch sodium levels also 5. DVT prophylaxis: Heparin subQ Subjective Date/time seen: 08/28/24 12:24 Interval history: Pt still little confused, pt needing 2 liters of oxygen. HR is high. Pt admitted for SPENSER pneumonia and hypoglycemia still recovering 84-year-old female with past medical history of diabetes, hypertension, hyperlipidemia presented with altered mental status, persistent hypoglycemia, hyponatremia along with acute kidney injury. Pt receiving iv fluids and iv abx in hospital Review of Systems Review of Systems: Little confused Objective Data Vital Signs Vital Signs: Vital Signs - 24 hr 08/27/24 14:00 08/27/24 20:00 08/27/24 22:00 Temperature 36.7 C 36.1 C L Pulse Rate 86 70 Respiratory Rate 18 18 Blood Pressure 166/88 H 140/66 Pulse Oximetry 98 94 98 Oxygen Delivery Nasal Cannula Oxygen Flow Rate 1 08/28/24 00:00 08/28/24 04:00 08/28/24 06:00 Temperature 36.7 C Pulse Rate 78 90 92 Respiratory Rate 18 Blood Pressure 108/54 L Pulse Oximetry 96 Oxygen Delivery Oxygen Flow Rate 08/28/24 08:00 08/28/24 08:00 Temperature Pulse Rate 128 H Respiratory Rate Blood Pressure Pulse Oximetry 96 Oxygen Delivery Nasal Cannula Oxygen Flow Rate 2 Intake/Output Intake/Output: Intake & Output 08/25/24 08/26/24 08/27/24 08/28/24 23:59 23:59 23:59 23:59 Intake Total 2810 400 Output Total 300 150 Balance -300 2660 400 Meds/Results Medications: Active Medications Generic Name Dose Route Start Last Admin Trade Name Freq PRN Reason Stop Dose Admin Acetaminophen 650 mg 08/26/24 18:02 Acetaminophen 325 Mg Tablet PO Q4H PRN Mild Pain (1-3) or Fever Dextrose 12.5 gm 08/27/24 17:07 Dextrose 50% 25 Gm/50 Ml Syringe IV PUSH PRN PRN Hypoglycemia Protocol Glucagon 1 mg 08/27/24 17:07 Glucagon For Inj 1 Mg Vial IM PRN PRN Hypoglycemia Protocol Glucose 15 gm 08/27/24 17:07 Glucose Oral Gel 15 Gm Of Glucse In 37.5 Gm Tube PO PRN PRN Hypoglycemia Protocol Heparin Sodium (Porcine) 5,000 units 08/26/24 21:00 08/28/24 09:19 Heparin Sodium 5,000 Units/Ml Vial SUB-Q 5,000 units Q12HR SELENA Administration Hydralazine HCl 5 mg 08/26/24 20:03 Hydralazine Hcl 20 Mg/Ml Vial IV PUSH Q6HR PRN Blood Pressure - High Ceftriaxone Sodium 1 gm in 50 mls @ 100 mls/hr 08/26/24 21:00 08/27/24 21:02 Rocephin 1 Gm/Ns 50 Ml IVPB 09/01/24 21:29 Infused Q24H SELENA Infusion Azithromycin 500 mg in 250 mls @ 250 mls/hr 08/26/24 20:00 08/27/24 21:30 Zithromax IVPB 08/28/24 20:59 Infused Q24H SELENA Infusion Insulin Aspart 2 - 5 units 08/28/24 08:00 08/28/24 08:45 Insulin Aspart (*Bkc) 100 Units/Ml SUB-Q Not Given TIDWM SELENA Protocol Ondansetron HCl 4 mg 08/26/24 18:02 Ondansetron Inj 4 Mg/2 Ml Vial IV PUSH Q4H PRN Nausea Pantoprazole Sodium 40 mg 08/27/24 09:00 08/28/24 09:19 Pantoprazole Sodium Iv 40 Mg Vial IV PUSH 40 mg QAM SELENA Administration Perflutren Lipid Microsphere 0 ml 08/26/24 19:55 Perflutren Lipid Microspheres 1.5 Ml Vial Diluted To 10 Ml Total Volume IV PUSH 08/29/24 19:55 ONCE PRN adequate visualization Protocol Radiology Results: ITS Impressions Chest X-Ray 08/26/24 17:37 IMPRESSION: Bibasilar opacification which may indicate atelectasis versus pneumonia. Bilateral interstitial thickening which may indicate pneumonitis versus pulmonary edema. Clinical correlation advised. Head CT 08/26/24 21:07 IMPRESSION: No acute intracranial findings. Retroperitoneum Ultrasound 08/27/24 12:41 IMPRESSION: 1. No hydronephrosis. 2. 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 Modified Barium Swallow 08/27/24 12:46 IMPRESSION: Single episode of flash laryngeal penetration without aspiration. Please correlate with speech pathologist findings and specific feeding recommendations. Labs Labs: Laboratory Results - last 24 hr 08/27/24 08/27/24 08/28/24 16:38 21:55 06:22 WBC 11.3 H RBC 3.44 L Hgb 11.4 L Hct 33.6 L MCV 97.7 MCH 33.1 MCHC 33.9 RDW 13.9 Plt Count 126 L MPV 10.3 Sodium 130 L Potassium 4.0 Chloride 103 Carbon Dioxide 25 Anion Gap 2 L BUN 38 H Creatinine 1.70 H Estim Creat Clear Calc 18 Estimated GFR 29 L Glucose 148 H POC Capillary Glucose 292 H 347 H Calcium 8.6 Magnesium 2.1 08/28/24 08/28/24 07:52 12:18 WBC RBC Hgb Hct MCV MCH MCHC RDW Plt Count MPV Sodium Potassium Chloride Carbon Dioxide Anion Gap BUN Creatinine Estim Creat Clear Calc Estimated GFR Glucose POC Capillary Glucose 143 H 199 H Calcium Magnesium
[2024-08-28 16:53] LABS: Glucose Point of Care 212 mg/dl (65-105)
[2024-08-28] MEDS: MIDODRINE HCL 2.5 MG TABLET PO (17:25)
[2024-08-28] MEDS: SODIUM CHLORIDE 0.9% IV 1,000 ML 50 ML IV CONT (17:26)
[2024-08-28] MEDS: INSULIN ASPART (*BKC) 100 UNITS/ML SUB-Q (17:29)
[2024-08-28] MEDS: AZITHROMYCIN 500 MG/NS 250 ML 500 MG/250 ML BAG 250 MG IVPB (20:08)
[2024-08-28] MEDS: ATORVASTATIN 40 MG TABLET PO (20:19)
[2024-08-28] MEDS: calcitrioL 0.25 MCG CAPSULE PO (20:20)
[2024-08-28] MEDS: METOPROLOL TARTRATE 12.5 MG TABLET PO (20:20)
[2024-08-28] MEDS: PANTOPRAZOLE 40 MG TABLET PO (20:20)
[2024-08-28 20:40] LABS: Glucose Point of Care 216 mg/dl (65-105)
[2024-08-29] VITALS (13 sets, daily range): BP systolic 112–128; BP diastolic 50–69; PULSE 62–83; RESP 18–20; TEMP 36.8–37.3; O2SAT 93–96; BMI 23.8
[2024-08-29 05:51] LABS: Glucose Point of Care 131 mg/dl (65-105)
[2024-08-29 07:01] LABS: Hematocrit 31.8 % (37.0-47.0); Hemoglobin 10.3 g/dL (12.0-15.0); Mean Corpuscular HGB Conc 32.4 g/dl (32-36); Mean Corpuscular Hemoglobin 32.5 pg (26-34); Mean Corpuscular Volume 100.3 fl (80-100); Mean Platelet Volume 9.9 fl (7.4-10.4); Platelet Count Result 119 k/mm3 (150-375); Red Blood Count 3.17 M/mm3 (4.2-5.4); Red Cell Distribution Width 13.7 % (11.5-14.5); White Blood Count 5.7 K/mm3 (4.5-10.0)
[2024-08-29 07:13] LABS: Anion Gap 1 mmol/L (4-12); Blood Urea Nitrogen 32 mg/dL (7-17); Calcium 8.7 mg/dL (8.4-10.2); Carbon Dioxide 26 mmol/L (22-30); Chloride 107 mmol/L (98-107); Estimated CRCL calculation 18 ml/min; Estimated Glomerular Filt Rate 29; Glucose 126 mg/dL (65-110); Potassium 4.3 mmol/L (3.4-5.0); Sodium 134 mmol/L (137-145)
[2024-08-29] MEDS: METOPROLOL TARTRATE 12.5 MG TABLET PO ×2 (08:09→21:09)
[2024-08-29] MEDS: FERROUS GLUCONATE 324 MG TABLET PO (08:09)
[2024-08-29] MEDS: HEPARIN SODIUM 5,000 UNITS/ML VIAL 5000 UNITS SUB-Q ×2 (08:11→21:08)
[2024-08-29] MEDS: PANTOPRAZOLE SODIUM IV 40 MG VIAL IV PUSH (08:11)
[2024-08-29] MEDS: allopurinoL 100 MG TABLET PO (08:11)
[2024-08-29] MEDS: PANTOPRAZOLE 40 MG TABLET PO ×2 (08:11→21:09)
[2024-08-29] MEDS: MIDODRINE HCL 2.5 MG TABLET PO ×2 (08:11→16:19)
[2024-08-29 08:20] LABS: Glucose Point of Care 135 mg/dl (65-105)
--- NOTE | 2024-08-29 09:13 | PM.IMPN ---
Progress Note: A&P Assessment and Plan (1) Acute encephalopathy: Code(s): G93.40 - Encephalopathy, unspecified Status: Acute Assessment and Plan: Very likely secondary to persistent hypoglycemia vs infection CT head: No acute intracranial process See care plan below Monitor hemodynamics closely Admit to telemetry medicine (2) Hypoglycemia: Code(s): E16.2 - Hypoglycemia, unspecified Status: Acute Assessment and Plan: Patient hypoglycemic on admission requiring D5 IV pushes hourly which has since been discontinued - noted SPENSER - hypoglycemia protocol - POC blood glucose q4H - home medication - glipizide and insulin (not a candidate for both at [place]) - correct regimen ordered - low dose TIDWM and HS - A1C 7.3 (3) SPENSER (acute kidney injury): Code(s): N17.9 - Acute kidney failure, unspecified Status: Acute Assessment and Plan: BUN/Cr 51/2.1 on admission (baseline appears to be 1.3-1.7), likely secondary to poor p.o. intake BUN/Cr 32/1.7 on am labs Continue with IV fluids Holding lasix for SPENSER Avoid nephrotoxins Renal ultrasound 1. No hydronephrosis. 2. 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 Nutrition consulted (4) Pneumonia: Code(s): J18.9 - Pneumonia, unspecified organism Status: Acute Assessment and Plan: CXR: Bibasilar opacification which may indicate atelectasis versus pneumonia. Bilateral interstitial thickening which may indicate pneumonitis versus pulmonary edema. Clinical correlation advised. - started on CAP tx: azithromycin (08/26-08/28), ceftriaxone (08/26-09/01), transitioned to Augmentin (08/29-09/02) - Blood culture: NGTD - Will obtain urine Legionella antigen as welll - O2 requirement: 2L NC, wean as tolerated for SpO2 > 90% - Monitor vital signs, I&Os, neuro status and patient is a fall risk - Follow WBC, serum electrolytes, temperature curves and cultures - Send sputum cultures ? Possible pulmonary edema on chest x-ray BNP 9350 Echo ordered (5) Generalized weakness: Code(s): R53.1 - Weakness Status: Acute Assessment and Plan: - PT/OT consulted Time Spent With Patient Time with patient: 25 - 35 minutes Subjective Date/time seen: 08/29/24 09:13 Interval history: 84-year-old with a history of hypertension, diabetes, hyperlipidemia was riding his of low blood sugar. Patient is pleasant lying in bed. She continues to endorse mild shortness of breath with a nonproductive cough that she states has improved during admission. She continues to endorse weakness and works with PT/OT. She has no other complaints denying chest pain, palpitations, nausea/vomiting and abdominal pain. Review of Systems Review of Systems: All systems reviewed & are unremarkable except as noted in HPI and below Exam Narrative: AF HR 64 RR 20 SpO2 96 2L NC BP 128/67 General: female in no acute respiratory distress who is nontoxic appearing, lying semi recumbent in bed. HEENT: Normocephalic. Atraumatic. Extraocular movement intact. Sclera clear and anicteric. No facial asymmetry. Chest: Lungs are diminished to auscultation bilaterally. No wheezes or crackles. CV: Heart was regular rate and rhythm. S1-S2. No murmurs, gallops, or rubs. Abd: Abdomen was soft. Nontender. Nondistended. Positive bowel sounds. No organomegaly or masses. Ext: No clubbing, cyanosis, or edema. 2+ DP pulses bilaterally. Neuro: Patient is alert and oriented x3 (person, place, month). Cranial nerves 2-12 are intact. Speech is clear. Objective Data Vital Signs Vital Signs: Vital Signs - 24 hr 08/28/24 12:00 08/28/24 14:00 08/28/24 14:39 Temperature 98.9 F Pulse Rate 95 93 Respiratory Rate 18 Blood Pressure 112/71 Pulse Oximetry 95 92 Oxygen Delivery Nasal Cannula Oxygen Flow Rate 2 Fraction of Inspired Oxygen 08/28/24 16:00 08/28/24 20:00 08/28/24 20:15 Temperature Pulse Rate 89 75 78 Respiratory Rate 18 Blood Pressure Pulse Oximetry 99 Oxygen Delivery Nasal Cannula Oxygen Flow Rate 2 Fraction of Inspired Oxygen 28 08/28/24 20:20 08/28/24 21:14 08/29/24 00:03 Temperature 98.4 F Pulse Rate 67 78 65 Respiratory Rate 18 Blood Pressure 106/64 Pulse Oximetry 99 Oxygen Delivery Oxygen Flow Rate Fraction of Inspired Oxygen 08/29/24 04:01 08/29/24 05:57 08/29/24 08:09 Temperature 99.2 F Pulse Rate 66 73 83 Respiratory Rate 20 Blood Pressure 112/69 Pulse Oximetry 94 Oxygen Delivery Oxygen Flow Rate Fraction of Inspired Oxygen 08/29/24 08:18 08/29/24 08:30 Temperature Pulse Rate Respiratory Rate Blood Pressure Pulse Oximetry 93 Oxygen Delivery Nasal Cannula Nasal Cannula Oxygen Flow Rate 2 2 Fraction of Inspired Oxygen 28 Intake/Output Intake/Output: Intake & Output 08/26/24 08/27/24 08/28/24 08/29/24 23:59 23:59 23:59 23:59 Intake Total 2810 2380 0 Output Total 300 150 Balance -300 2660 2380 0 Meds/Results Medications: Active Medications Generic Name Dose Route Start Last Admin Trade Name Freq PRN Reason Stop Dose Admin Acetaminophen 650 mg 08/26/24 18:02 Acetaminophen 325 Mg Tablet PO Q4H PRN Mild Pain (1-3) or Fever Allopurinol 100 mg 08/29/24 09:00 08/29/24 08:11 Allopurinol 100 Mg Tablet PO 100 mg DAILY SELENA Administration Atorvastatin Calcium 40 mg 08/28/24 21:00 08/28/24 20:19 Atorvastatin 40 Mg Tablet PO 40 mg HS SELENA Administration Calcitriol 0.25 mcg 08/28/24 21:00 08/28/24 20:20 Calcitriol 0.25 Mcg Capsule PO 0.25 mcg HS SELENA Administration Dextrose 12.5 gm 08/27/24 17:07 Dextrose 50% 25 Gm/50 Ml Syringe IV PUSH PRN PRN Hypoglycemia Protocol Famotidine 40 mg 08/29/24 09:00 Famotidine 20 Mg Tablet PO DAILY SELENA Ferrous Gluconate 324 mg 08/29/24 09:00 08/29/24 08:09 Ferrous Gluconate 324 Mg Tablet PO 324 mg DAILY SELENA Administration Glucagon 1 mg 08/27/24 17:07 Glucagon For Inj 1 Mg Vial IM PRN PRN Hypoglycemia Protocol Glucose 15 gm 08/27/24 17:07 Glucose Oral Gel 15 Gm Of Glucse In 37.5 Gm Tube PO PRN PRN Hypoglycemia Protocol Heparin Sodium (Porcine) 5,000 units 08/26/24 21:00 08/29/24 08:11 Heparin Sodium 5,000 Units/Ml Vial SUB-Q 5,000 units Q12HR SELENA Administration Hydralazine HCl 5 mg 08/26/24 20:03 Hydralazine Hcl 20 Mg/Ml Vial IV PUSH Q6HR PRN Blood Pressure - High Ceftriaxone Sodium 1 gm in 50 mls @ 100 mls/hr 08/26/24 21:00 08/28/24 21:15 Rocephin 1 Gm/Ns 50 Ml IVPB 09/01/24 21:29 100 mls/hr Q24H SELENA Administration Sodium Chloride 1,000 mls @ 50 mls/hr 08/28/24 12:35 08/28/24 17:26 Normal Saline Iv IV CONT 50 mls/hr .Q20H SELENA Administration Insulin Aspart 2 - 5 units 08/28/24 08:00 08/29/24 08:28 Insulin Aspart (*Bkc) 100 Units/Ml SUB-Q Not Given TIDWM SELENA Protocol Metoprolol Tartrate 12.5 mg 08/28/24 21:00 08/29/24 08:09 Metoprolol Tartrate 12.5 Mg Tablet PO 12.5 mg Q12HR SELENA Administration Midodrine 2.5 mg 08/28/24 17:00 08/29/24 08:11 Midodrine Hcl 2.5 Mg Tablet PO 2.5 mg BID SELENA Administration Miscellaneous Information 1 each 08/28/24 00:01 Famotidine Renal Dose Rec: Crcl 18ml/Min 08/28/24: Renal Impairment (Crcl Less Than 30 Ml/ XX 09/27/24 00:00 CLARIFY SELENA Cranberry Fruit 1 each 08/28/24 13:47 Concentrate [Azo XX 08/29/24 13:46 Cranberry] 250 Mg PRN PRN Tablet,Chewable) PROTOCOL Ondansetron HCl 4 mg 08/26/24 18:02 Ondansetron Inj 4 Mg/2 Ml Vial IV PUSH Q4H PRN Nausea Pantoprazole Sodium 40 mg 08/27/24 09:00 08/29/24 08:11 Pantoprazole Sodium Iv 40 Mg Vial IV PUSH 40 mg QAM SELENA Administration Pantoprazole Sodium 40 mg 08/28/24 21:00 08/29/24 08:11 Pantoprazole 40 Mg Tablet PO 40 mg Q12HR SELENA Administration Perflutren Lipid Microsphere 0 ml 08/26/24 19:55 Perflutren Lipid Microspheres 1.5 Ml Vial Diluted To 10 Ml Total Volume IV PUSH 08/29/24 19:55 ONCE PRN adequate visualization Protocol Radiology Results: ITS Impressions Chest X-Ray 08/26/24 17:37 IMPRESSION: Bibasilar opacification which may indicate atelectasis versus pneumonia. Bilateral interstitial thickening which may indicate pneumonitis versus pulmonary edema. Clinical correlation advised. Head CT 08/26/24 21:07 IMPRESSION: No acute intracranial findings. Retroperitoneum Ultrasound 08/27/24 12:41 IMPRESSION: 1. No hydronephrosis. 2. 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 Modified Barium Swallow 08/27/24 12:46 IMPRESSION: Single episode of flash laryngeal penetration without aspiration. Please correlate with speech pathologist findings and specific feeding recommendations. Labs Labs: Laboratory Results - last 24 hr 08/28/24 08/28/24 08/28/24 12:18 16:33 20:24 WBC RBC Hgb Hct MCV MCH MCHC RDW Plt Count MPV Sodium Potassium Chloride Carbon Dioxide Anion Gap BUN Creatinine Estim Creat Clear Calc Estimated GFR Glucose POC Capillary Glucose 199 H 212 H 216 H Calcium 08/29/24 08/29/24 08/29/24 05:48 06:50 07:58 WBC 5.7 RBC 3.17 L Hgb 10.3 L Hct 31.8 L MCV 100.3 H MCH 32.5 MCHC 32.4 RDW 13.7 Plt Count 119 L MPV 9.9 Sodium 134 L Potassium 4.3 Chloride 107 Carbon Dioxide 26 Anion Gap 1 L BUN 32 H Creatinine 1.70 H Estim Creat Clear Calc 18 Estimated GFR 29 L Glucose 126 H POC Capillary Glucose 131 H 135 H Calcium 8.7
[2024-08-29 11:39] LABS: Glucose Point of Care 157 mg/dl (65-105)
[2024-08-29] MEDS: SODIUM CHLORIDE 0.9% IV 1,000 ML 50 ML IV CONT (13:30)
[2024-08-29 16:48] LABS: Glucose Point of Care 147 mg/dl (65-105)
[2024-08-29] MEDS: ACETAMINOPHEN 325 MG TABLET 650 MG PO (18:29)
[2024-08-29] MEDS: AMOXICILLIN/CLAVULANATE K 500-125 MG TAB 1 TABLET PO (21:08)
[2024-08-29] MEDS: ATORVASTATIN 40 MG TABLET PO (21:08)
[2024-08-29] MEDS: calcitrioL 0.25 MCG CAPSULE PO (21:08)
[2024-08-30] VITALS (7 sets, daily range): BP systolic 126; BP diastolic 58; PULSE 50–77; RESP 20; TEMP 36.2; O2SAT 95–97
--- NOTE | 2024-08-30 | ECHO_ITS ---
Patient Info Name: Sandee Martinez Age: 84 years : 1940 Gender: Female Ht: 63 in Wt: 134 lbs BSA: 1.65 m2 HR: 54 bpm BP: 126 / 58 mmHg Heart Rhythm: Sinus Rhythm Technical Quality: Fair Exam Date: 08/30/2024 3:22 PM Exam Location: Echo Lab Patient Status: Inpatient Admit Date: 08/26/2024 Staff Ordering Physician: Karissa Bear PA-C Building Trades Instructor: Vickie Reyes RDCS Attending Provider: Karissa Bear PA-C Referring Physician: Marianela GODWIN; Exam Type: CA echo doppler color flow Study Info Indications - pulmonary edema and BNP Complete two-dimensional, color flow and Doppler transthoracic echocardiogram is performed. Summary 1. Complete two-dimensional, color flow and Doppler transthoracic echocardiogram is performed. 2. Left ventricular chamber dimension is normal. 3. Left ventricular systolic function is normal with an ejection fraction by Biplane Method of Discs of 66 %. 4. There is mildly increased left ventricular wall thickness. 5. The left ventricular diastolic function is grade I diastolic dysfunction. 6. Right ventricular chamber dimension is normal. 7. Right ventricular systolic function is normal. 8. There is no aortic valve stenosis. 9. There is no mitral valve regurgitation. 10. There is mild tricuspid valve regurgitation. 11. No pulmonary hypertension, estimated pulmonary arterial systolic pressure is 27 mmHg. Left Ventricle Left ventricular chamber dimension is normal. There is mildly increased left ventricular wall thickness. Left ventricular systolic function is normal with an ejection fraction by Biplane Method of Discs of 66 %. Left ventricular septal wall motion is normal. The left ventricular diastolic function is grade I diastolic dysfunction. Right Ventricle Right ventricular chamber dimension is normal. Right ventricular systolic function is normal. Left Atria Left atrial chamber dimension is normal. Right Atria Right atrial chamber dimension is normal. Aortic Valve The aortic valve is trileaflet. There is no aortic valve sclerosis. There is no aortic valve stenosis. There is trace aortic valve regurgitation. Pulmonic Valve The pulmonic valve is normal. There is no pulmonic valve stenosis. There is mild pulmonic regurgitation. Mitral Valve The mitral valve has normal leaflets. There is no mitral valve stenosis. There is no mitral valve regurgitation. Tricuspid Valve The tricuspid valve leaflets are normal. There is no significant tricuspid valve stenosis. There is mild tricuspid valve regurgitation. No pulmonary hypertension, estimated pulmonary arterial systolic pressure is 27 mmHg. Pericardium/Pleural The pericardium appears normal. There is no pericardial effusion. Inferior Vena Cava Normal inferior vena cava with >50% collapse upon inspiration consistent with normal right atrial pressure, 3 mmHg. Aorta The aortic root size at the sinus of Valsalva is normal. The prox ascending aorta size is normal. Left Ventricular Outflow Tract Name Value Normal LVOT 2D LVOT Diameter 2.0 cm LVOT Doppler LVOT Peak Gradient 2 mmHg LVOT Mean Gradient 1 mmHg LVOT VTI 15 cm LVOT VTI/AV VTI Ratio 0.7 LVOT Stroke Volume 50 ml LVOT CO 2.6 l/min LVOT CI 1.6 l/min/m2 Pulmonic Valve Name Value Normal RVOT Doppler RVOT Peak Gradient 1 mmHg PV Doppler PV Peak Gradient 3 mmHg Mitral Valve Name Value Normal MV Doppler MV Decel Harlan 249 cm/s2 MV PHT 108 ms MV Area (PHT) 2.0 cm2 4.0-5.0 MV Diastolic Function MV E Peak Velocity 92 cm/s MV A Peak Velocity 113 cm/s MV E/A 0.8 MV Decel Time 372 ms MV Annular TDI MV E/e' (Septal) 12.9 <=8.0 MV E/e' (Lateral) 18.1 <=8.0 MV E/e' (Average) 15.5 Tricuspid Valve Name Value Normal TV Regurgitation Doppler TR Peak Velocity 244 cm/s TR Peak Gradient 18 mmHg Estimated PAP/RSVP RA Pressure 3 mmHg <=5 PA Systolic Pressure 27 mmHg <36 RV Systolic Pressure 27 mmHg <36 Aorta Name Value Normal Ascending Aorta Ao Root Diameter (MM) 3.5 cm Ao Root Diam Index (MM) 2.1 cm/m2 Aortic Valve Name Value Normal AV Doppler AV Peak Velocity 129 cm/s AV Peak Gradient 7 mmHg AV Mean Gradient 3 mmHg AV VTI 24 cm AV Area (Cont Eq VTI) 2.1 cm2 >=3.0 AV Area (Cont Eq [place]) 1.8 cm2 AV Regurgitation 2D LVOT Area 3.3 cm2 Ventricles Name Value Normal LV Dimensions 2D/MM IVS Diastolic Thickness (2D) 0.9 cm 0.6-1.0 LVID Diastole (2D) 3.9 cm 3.8-5.2 LVIW Diastolic Thickness (2D) 0.9 cm 0.6-0.9 LVID Systole (2D) 2.5 cm 2.2-3.5 LVOT Diameter 2.0 cm LV Mass (2D Cubed) 105.67 g 67.00-162.00 LV Mass Index (2D Cubed) 64 g/m2 43-95 Relative Wall Thickness (2D) 0.48 LV Fractional Shortening/Ejection Fraction 2D/MM LV Fractional Shortening (2D) 35 % 27-45 LV EF (2D Teicholz) 65 % 54-74 LV Diastolic Volume (4C MOD) 56 ml LV EF (4C MOD) 70 % LV Diastolic Volume (2C MOD) 56 ml LV EF (2C MOD) 61 % LV Diastolic Volume (BP MOD) 58 ml 46-106 LV Diastolic Volume Index (BP MOD) 35 ml/m2 29-61 LV Systolic Volume (BP MOD) 20 ml 14-42 LV Systolic Volume Index (BP MOD) 12 ml/m2 8-24 LV EF (BP MOD) 66 % 54-74 LV Diastolic Length (4C) 6.9 cm LV Systolic Length (4C) 5.7 cm LV Stroke Volume (4C MOD) 39 ml Atria Name Value Normal LA Dimensions LA Dimension (MM) 3.5 cm 2.7-3.8 LA Volume (4C A-L) 23 ml LA Volume (BP A-L) 29 ml RA Dimensions RA Area (4C) 17.8 cm2 <=18.0 Report Signatures
[2024-08-30] MEDS: ACETAMINOPHEN 325 MG TABLET 650 MG PO (00:07)
[2024-08-30 07:17] LABS: Glucose Point of Care 254 mg/dl (65-105)
[2024-08-30 07:30] LABS: Basophils Percent Auto 0.3 % (0.2-1.2); Eosinophils Absolute Auto 0.1 K/mm3 (0-0.3); Eosinophils Percent Auto 3.2 % (0-4.4); Hematocrit 31.9 % (37.0-47.0); Hemoglobin 10.5 g/dL (12.0-15.0); Immature Granulocyte Absolute 0.03 K/mm3 (0.00-0.031); Lymphocytes Absolute Auto 1.22 K/mm3 (0.9-3.2); Lymphocytes Percent Auto 38.7 % (18.3-44.2); Mean Corpuscular HGB Conc 32.9 g/dl (32-36); Mean Corpuscular Hemoglobin 32.9 pg (26-34); Mean Platelet Volume 10.4 fl (7.4-10.4); Monocytes Absolute Auto 0.3 K/mm3 (0.1-0.6); Monocytes Percent Auto 10.8 % (2.6-8.5); Neutrophils Absolute Auto 1.5 K/mm3 (1.3-6.7); Platelet Count Result 111 k/mm3 (150-375); Red Blood Count 3.19 M/mm3 (4.2-5.4); Red Cell Distribution Width 13.9 % (11.5-14.5); White Blood Count 3.2 K/mm3 (4.5-10.0)
[2024-08-30 07:43] LABS: Glucose Point of Care 136 mg/dl (65-105)
[2024-08-30 07:49] LABS: Alanine Aminotransferase 18 U/L (6-35); Albumin Level 2.8 g/dL (3.5-5.1); Alkaline Phosphatase 53 U/L (38-126); Anion Gap 1 mmol/L (4-12); Aspartate Amino Transferase 29 U/L (14-36); Bilirubin,Total 0.4 mg/dL (0.2-1.3); Blood Urea Nitrogen 32 mg/dL (7-17); Calcium 8.5 mg/dL (8.4-10.2); Carbon Dioxide 23 mmol/L (22-30); Chloride 110 mmol/L (98-107); Estimated CRCL calculation 19 ml/min; Estimated Glomerular Filt Rate 31; Glucose 152 mg/dL (65-110); Sodium 134 mmol/L (137-145)
[2024-08-30] MEDS: HEPARIN SODIUM 5,000 UNITS/ML VIAL 5000 UNITS SUB-Q (10:02)
[2024-08-30] MEDS: PANTOPRAZOLE 40 MG TABLET PO (10:02)
[2024-08-30] MEDS: FERROUS GLUCONATE 324 MG TABLET PO (10:02)
[2024-08-30] MEDS: MIDODRINE HCL 2.5 MG TABLET PO (10:02)
[2024-08-30] MEDS: METOPROLOL TARTRATE 12.5 MG TABLET PO (10:03)
[2024-08-30] MEDS: AMOXICILLIN/CLAVULANATE K 500-125 MG TAB 1 TABLET PO (10:03)
[2024-08-30] MEDS: allopurinoL 100 MG TABLET PO (10:03)
[2024-08-30] MEDS: PANTOPRAZOLE SODIUM IV 40 MG VIAL IV PUSH (10:04)
[2024-08-30] MEDS: FAMOTIDINE 20 MG TABLET PO (10:08)
[2024-08-30] MEDS: SODIUM CHLORIDE 0.9% IV 1,000 ML 50 ML IV CONT (10:13)
[2024-08-30 11:59] LABS: Glucose Point of Care 286 mg/dl (65-105)
[2024-08-30] MEDS: INSULIN ASPART (*BKC) 100 UNITS/ML SUB-Q (12:56)
--- NOTE | 2024-08-30 15:47 | P.DS_ITS ---
DS: Admitting Diagnosis Discharge Date 08/30/2024 Admitting Diagnosis acute encephalopathy hypoglycemia SPENSER Pneumonia Generalized weakness DS: Discharge Diagnosis Discharge Diagnosis (1) Acute encephalopathy: Code(s): G93.40 - Encephalopathy, unspecified Status: Acute (2) Hypoglycemia: Code(s): E16.2 - Hypoglycemia, unspecified Status: Acute (3) SPENSER (acute kidney injury): Code(s): N17.9 - Acute kidney failure, unspecified Status: Acute (4) Pneumonia: Code(s): J18.9 - Pneumonia, unspecified organism Status: Acute (5) Generalized weakness: Code(s): R53.1 - Weakness Status: Acute DS: Summary Hospital Course Reason for hospitalization: acute encephalopathy hypoglycemia SPENSER Pneumonia Generalized weakness Hospital Course: 84-year-old female who with past medical history of hypertension, hyperlipidemia, diabetes on glipizide and insulin presented with altered mental status and persistent low blood sugars at home. Altered mental status likely secondary to hypoglycemia and infection. CT head showed no acute intracranial process. Glucose level was 35 on admission. Started on D5 IV pushes on admission. Glucose levels stabilized and patient was restarted on her insulin. Patient is to hold her glipizide until follow up with her PCP. Patient was noted to have an SPENSER which resolved with IV fluids. 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 A chest XR was obtained and showed bibasilar opacification which may indicate atelectasis versus pneumonia and bilateral interstitial thickening which may indicate pneumonitis versus pulmonary edema. Patient was started on IV antibiotics. Echo showed LVEF 66% with grade I diastolic dysfunction. She was requiring supplemental oxygen during inpatient stay. Prior to discharge I removed patients oxygen and had her walk from her bed to the bathroom and back again. Her oxygen saturations remained stable on room air. She did not require any assistance with ambulation and denied dizziness/lightheadedness at that time. At time of discharge patient had no complaints denying chest pain, shortness of breath, palpitations, nausea/vomiting and abdominal pain. Patient discharged home in a stable condition. She is to follow up with her PCP in 1 week and continue her antibiotics as prescribed. Status at Discharge Functional status at discharge: independent ambulation Time Spent with Patient Time attestation: Total time spent providing and/or coordinating discharge services: Time spent: Greater than 30 minutes Exam Narrative: AF HR 71 RR 20 SpO2 97 RA BP 126/58 General: female in no acute respiratory distress who is nontoxic appearing, lying semi recumbent in bed. HEENT: Normocephalic. Atraumatic. Extraocular movement intact. Sclera clear and anicteric. No facial asymmetry. Chest: Lungs are clear to auscultation bilaterally. No wheezes or crackles. CV: Heart was regular rate and rhythm. S1-S2. No murmurs, gallops, or rubs. Abd: Abdomen was soft. Nontender. Nondistended. Positive bowel sounds. No organomegaly or masses. Ext: No clubbing, cyanosis, or edema. 2+ DP pulses bilaterally. Neuro: Patient is alert and oriented x3 (person, place, month). Cranial nerves 2-12 are intact. Speech is clear. DS: Data Data Completed and Pending Completed studies during hospitalization: MBS Retroperitoneum US Head CT Chest XR Labs on day of discharge: Labs from last 24 hours 08/30/24 08/30/24 08/30/24 11:56 07:41 06:46 WBC 3.2 L RBC 3.19 L Hgb 10.5 L Hct 31.9 L MCV 100.0 MCH 32.9 MCHC 32.9 RDW 13.9 Plt Count 111 L MPV 10.4 Immature Gran % (Auto) 1.0 H Neut % (Auto) 46.0 Lymph % (Auto) 38.7 Surry % (Auto) 10.8 H Eos % (Auto) 3.2 Baso % (Auto) 0.3 Lymph # (Auto) 1.22 [place]ry # (Auto) 0.3 Eos # (Auto) 0.1 Baso # (Auto) 0.0 Abs Immat Gran (auto) 0.03 Absolute Neuts (auto) 1.5 Absolute Nucleated RBC 0.000 Nucleated RBC % 0.0 Sodium 134 L Potassium 4.0 Chloride 110 H Carbon Dioxide 23 Anion Gap 1 L BUN 32 H Creatinine 1.60 H Estim Creat Clear Calc 19 Estimated GFR 31 L Glucose 152 H POC Capillary Glucose 286 H 136 H Calcium 8.5 Total Bilirubin 0.4 AST 29 ALT 18 Alkaline Phosphatase 53 Total Protein 5.0 L Albumin 2.8 L 12/30/24 12/30/24 20:50 16:28 WBC RBC Hgb Hct MCV MCH MCHC RDW Plt Count MPV Immature Gran % (Auto) Neut % (Auto) Lymph % (Auto) Surry % (Auto) Eos % (Auto) Baso % (Auto) Lymph # (Auto) [place] # (Auto) Eos # (Auto) Baso # (Auto) Abs Immat Gran (auto) Absolute Neuts (auto) Absolute Nucleated RBC Nucleated RBC % Sodium Potassium Chloride Carbon Dioxide Anion Gap BUN Creatinine Estim Creat Clear Calc Estimated GFR Glucose POC Capillary Glucose 254 H 147 H Calcium Total Bilirubin AST ALT Alkaline Phosphatase Total Protein Albumin Preliminary micro results at discharge 08/26/24 20:45 Blood Culture - Preliminary Blood 08/26/24 20:45 Blood Culture - Preliminary Blood Discharge Plan Discharge Attending physician on discharge: Ming Michaels Consulting providers: Rayray Justice; Jess Mae; Brando Best; Angeli Boone; Fabio Michaels; Jhonny Argueta; Rogers Vargas Discharging Clinician: Karissa Bear Anticipated Discharge Date/Time: 08/30/24 15:35 Patient Disposition: Home, Self-Care Activity: as tolerated Diet: as tolerated, heart healthy and diabetic Discharge Instructions: Discharge disposition: Patient was admitted to the hospital for altered mental status likely secondary to low blood sugars Patient is to continue to monitor her blood sugars closey and record these for PCP follow up Take medications as prescribed Discontinue glipizide, discuss resuming this medication when you follow up with your PCP Continue insulin as prescribed Patient was diagnosed with pneumonia on admission and originally required oxygen supplementation Oxygen was able to be weaned off during admission Patient is to continue her medications as prescribed even if feeling better Augmentin, course to be completed on 09/02 Attached is information on this medication Discuss obtaining an echo to your PCP as you had an elevated BNP on labs Patient had a slight kidney injury on admission likely secondary to dehydration Eat well balanced meals and stay hydrated Keep active to remain strong Trend urine output Monitor blood pressures Take caution while standing, rising, or moving Change positions slowly taking a break between each position change If you standing feel dizzy sat back down and take a break Encouraged to continue with yearly vaccinations Return to the emergency department if he developed sudden shortness of breath, chest pain, nausea, vomiting, upset stomach or intractable diarrhea Return to the emergency department if you develop fever greater than 101.5 Follow-up with the primary care physician within 1-2 weeks Thank you for [facility] for your healthcare needs Patient Instructions: Antibiotic Form, Amoxicillin/Clavulanate Potassium (By mouth), Hypoglycemia in a Person with Diabetes (DC), Meal Planning with Diabetes Exchanges (DC), Community Acquired Pneumonia (DC) Patient Language: Ivorian Stand Alone Forms: General Discharge Information Follow-up/Referrals: Kashif,Jessika Grier APN [Primary Care Provider] - 1 Week Discharge Medications: New amoxicillin-pot clavulanate [Augmentin] 500-125 mg tablet 1 tablet PO Q12H Qty: 6 0RF Continued midodrine 2.5 mg tablet 2.5 mg PO BID Azo Cranberry 250 mg Tablet,Chewable 250 mg PO DAILY metoprolol tartrate 25 mg tablet 12.5 mg PO BID Ear Wax Drops 6.5 % drops 5 drp EACH EAR Q12H PRN (Reason: Ear Wax) omeprazole 40 mg capsule,delayed release(DR/EC) 40 mg PO BID atorvastatin 40 mg tablet 40 mg PO HS omeprazole 20 mg capsule,delayed release(DR/EC) 20 mg PO BID furosemide 20 mg tablet 20 mg PO BID calcitriol 0.25 mcg capsule 0.25 mcg PO HS ferrous gluconate 324 mg (38 mg iron) tablet 324 mg PO DAILY Qty: 30 0RF allopurinol 100 mg tablet 100 mg PO DAILY Changed famotidine 40 mg tablet 20 mg PO DAILY Qty: 30 0RF Held glipizide 10 mg tablet 10 mg PO BID Hold Instructions: Resume on 10/01/24. Hold until follow up with PCP Discontinued amoxicillin-pot clavulanate [Augmentin] 500-125 mg Tablet 1 tablet PO Q12HR 3 Days Qty: 6 0RF Date of admission: 08/26/24 18:03 Primary Care Provider: Kashif,Jessika Grier Admitting Provider: Daniella Mccoy Attending physician on admission: Karissa Bear Condition: Stable Hospitalist MIPS Heart Failure (Exclusion) Patient has history of Heart Transplant or Left Ventricular Assistive Device?: No IF YES, STOP HERE Heart Failure (Qualifier) Patient has current or prior documentation of LVEF less than or equal to 40%, or mod/servere depressed LVSF?: No IF NO, STOP HERE
[2024-09-02 21:33] LABS: Legionella pneumophila Ag Ur NOT DETECTED
== END 2024-08-30 16:50 | disposition home or self-care (01) | DRG 194 ==
LOC: ANHED 18:02 → ANH3MEDSUR 19:24
PROVIDERS: Family Medicine; Internal Medicine; Nurse Practitioner Gerontology; Admitting Provider Internal Medicine; Emergency Provider Family Medicine; PCP Nurse Practitioner Family; Visit Provider Student in an Organized Health Care Education/Training Program
DX: J18.9 Pneumonia, unspecified organism (principal); E87.1 Hypo-osmolality and hyponatremia; N17.9 Acute kidney failure, unspecified; G93.40 Encephalopathy, unspecified; E86.0 Dehydration; E11.649 Type 2 diabetes mellitus with hypoglycemia without coma; E11.22 Type 2 diabetes mellitus with diabetic chronic kidney disease; E78.5 Hyperlipidemia, unspecified; I12.9 Hypertensive chronic kidney disease with stage 1 through stage 4 chronic kidney disease, or unspecified chronic kidney disease; K21.9 Gastro-esophageal reflux disease without esophagitis; K22.70 Barrett's esophagus without dysplasia; N18.30 Chronic kidney disease, stage 3 unspecified; Z79.85 Long-term (current) use of injectable non-insulin antidiabetic drugs; Z66 Do not resuscitate; Z86.718 Personal history of other venous thrombosis and embolism; Z85.3 Personal history of malignant neoplasm of breast; Z90.12 Acquired absence of left breast and nipple; Z79.01 Long term (current) use of anticoagulants; Z90.49 Acquired absence of other specified parts of digestive tract; Z98.41 Cataract extraction status, right eye; Z98.42 Cataract extraction status, left eye; Z90.89 Acquired absence of other organs; Z87.891 Personal history of nicotine dependence; Z79.4 Long term (current) use of insulin
CPT/HCPCS: 36415; 70450; 71045; 76770; 80048; 80053; 81003; 82948; 83036; 83735; 83880; 85025; 85027; 87040; 87449; 92611; 93005; 93306; 96374; 96375; 97161; 97165; 99285; A9270; J0456; J0696; J1644; J1741; J1815; J2405; J2470; J3475; J3480; J7030